=== PATIENT | male | born 1960 | race Caucasian/White ===

== ENCOUNTER 2016-08-26 05:51 | Day surgery (SDC) | payer MEDICARE, MEDICAID ==
[~2016-08-26] VITALS: Ht 170.2 cm; Wt 103.8 kg
[2016-08-26] VITALS (9 sets, daily range): BP systolic 118–146; BP diastolic 67–101; PULSE 58–70; RESP 11–17; TEMP 97.8–98.2; O2SAT 89–100; Ht 170.2 cm; Wt 103.8 kg
--- OUTSIDE RECORDS SUMMARY | 2016-08-26 05:57 | XMS REPORT ---
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 Problem Chronic pain syndrome G89.4 Active Problem Diabetes type 2, controlled E11.9 Active Problem Secondary hypothyroidism E03.8 Active Problem Secondary adrenal insufficiency E27.49 Active Problem Testicular hypofunction E29.1 Active Problem Essential (primary) hypertension I10 Active Problem Diabetes type 2, uncontrolled E11.65 Active Problem Dorsalgia, unspecified M54.9 Active Problem Gastro-esophageal reflux disease without esophagitis K21.9 Active Problem 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 Active Problem Fibromyalgia 729.1 Active Assessment Testicular hypofunction E29.1 Active Problem halfway (current) use of opiate analgesic V58.69 Inactive Problem Restless legs syndrome [RLS] 333.94 Active Problem Sleep apnea 780.57 Active Problem Hypercalcemia 275.42 Active Problem Hypertension 401.9 Active Problem 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 Medications Medication Code System Code Instructions Start Date End Date Status Dosage Pantoprazole Sodium [facility] [address]-44 40 MG Oral 1 (one) every morning December 23, 2013 1 tablet Amitriptyline HCl [facility] [address]-71 25 MG Orally at bedtime October 22, 2013 1-2 tablets Tramadol HCl [facility] [address]-66 50 MG Oral every six hours, as needed 1 Levothyroxine Sodium [facility] 22522555498 100 Orally 1 (one) daily 1 tablet Oxycodone HCl [facility] [address]-24 5 MG Oral 1 tab up to 5x a day pain mgt. OneTouch Ultra Blue NDC 0 1 In Vitro 4 times daily Jul 15, 2013 as directed OneTouch Delica Lancets NDC 0 1 Misc four times daily Jun 04, 2012 not defined Lantus [facility] 68968480152 100 UNIT/ML Subcutaneous daily at bedtime 70 units Cabergoline [facility] 25179608869 0.5 MG Orally once a week 1 tablet BD Insulin Syringe [facility] 42200612968 30G X 1/2 intramuscular 1 (one) four times daily as directed Metoprolol Succinate ER [facility] [address]-53 100 MG Oral 1 tab daily May 28, 2013 1 tablet Testosterone Cypionate [facility] [address]-98 200 MG/ML Intramuscular every 2 weeks 200 mg Amlodipine Besylate [facility] [address]-57 10 MG Orally Once a day May 27, 2013 1 tablet NovoLog [facility] [address]-51 100 UNIT/ML Subcutaneous TID with meals December 23, 2013 20 units Irbesartan [facility] 81231442951 300 MG Orally Once a day 1 tablet Procedures Procedure Coding System Code Date THER/PROPH/DIAG INJ, SC/IM CPT-4 33400 Apr 19, 2016 Testosterone Cypionate (Depo-Testosterone) CPT-4 J1071 Apr 19, 2016 Results No Known Results Summary Purpose eClinicalWorks Submission
--- OUTSIDE RECORDS SUMMARY | 2016-08-26 05:57 | XMS REPORT ---
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 Problem Secondary adrenal insufficiency E27.49 Active Problem Dorsalgia, unspecified M54.9 Active Problem Secondary hypothyroidism E03.8 Active Problem Diabetes type 2, uncontrolled E11.65 Active Problem Chronic pain syndrome G89.4 Active Problem Gastro-esophageal reflux disease without esophagitis K21.9 Active Problem Essential (primary) hypertension I10 Active Assessment 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 Problem 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 Active Problem Hypertension 401.9 Active Problem can doffer (current) use of opiate analgesic V58.69 Inactive Problem Fibromyalgia 729.1 Active Problem Restless legs syndrome [RLS] 333.94 Active Problem Sleep apnea 780.57 Active Problem Hypercalcemia 275.42 Active Medications Medication Code System Code Instructions Start Date End Date Status Dosage Tramadol HCl [facility] [address]-34 50 MG Oral every six hours, as needed 1 Metoprolol Succinate ER [facility] [address]-76 100 MG Oral 1 tab daily May 28, 2013 1 tablet Lantus [facility] 06577691932 100 UNIT/ML Subcutaneous daily at bedtime 70 units OneTouch Ultra Blue NDC 0 1 In Vitro 4 times daily Jul 15, 2013 as directed Levothyroxine Sodium ND 01107084686 100 Orally 1 (one) daily 1 tablet BD Insulin Syringe [facility] 79317338646 30G X 1/2 intramuscular 1 (one) four times daily as directed Irbesartan [facility] 50877480139 300 MG Orally Once a day 1 tablet Pantoprazole Sodium [facility] [address]-23 40 MG Oral 1 (one) every morning December 23, 2013 1 tablet Cabergoline [facility] 80563310629 0.5 MG Orally once a week 1 tablet Oxycodone HCl [facility] [address]-90 5 MG Oral 1 tab up to 5x a day pain mgt. OneTouch Delica Lancets [facility] 0 1 Misc four times daily Jun 04, 2012 not defined Amitriptyline HCl [facility] [address]-18 25 MG Orally at bedtime October 22, 2013 1-2 tablets Testosterone Cypionate [facility] [address]-56 200 MG/ML Intramuscular every 2 weeks 200 mg Amlodipine Besylate [facility] [address]-23 10 MG Orally Once a day May 27, 2013 1 tablet NovoLog [facility] [address]-85 100 UNIT/ML Subcutaneous TID with meals December 23, 2013 20 units Procedures Procedure Coding System Code Date THER/PROPH/DIAG INJ, SC/IM CPT-4 22191 Mar 24, 2016 Testosterone Cypionate (Depo-Testosterone) CPT-4 J1071 Mar 24, 2016 Results No Known Results Summary Purpose eClinicalWorks Submission
--- OUTSIDE RECORDS SUMMARY | 2016-08-26 05:57 | XMS REPORT ---
Author Author Pineda Kevin Organization eClinicalWorks Address Unknown Phone Unavailable Care Team Providers Care Paving Foreman Name Role Phone Pineda Kevin CP Unavailable Allergies, Adverse Reactions, Alerts Substance Reaction Event Type Hydrocortisone *anorectal Agents* ; mood swings in large amts Non Drug Allergy Lyrica *anticonvulsants* ; increased anxiety and mood swings Non Drug Allergy Gabapentin *anticonvulsants* Info Not Available Non Drug Allergy Cymbalta *antidepressants* ; mood swings Non Drug Allergy Ropinirole Hcl *antiparkinson Agents* ; made his jerking worse! Non Drug Allergy Problems Problem Type Condition ICD-9 Code Onset Dates Condition Status Assessment Hypogonadism, male 257.2 Active Assessment Panhypopituitarism 253.2 Active Problem correction (current) use of opiate analgesic V58.69 Inactive Assessment Diabetes type 2, controlled 250.00 Active Problem Restless legs syndrome [RLS] 333.94 Active Problem Back pain, chronic 724.5 Active Problem Gastroparesis 536.3 Inactive Problem Other chronic pain 338.29 Inactive Problem Nonspecific elevation of levels of transaminase or lactic acid dehydrogenase (LDH) 790.4 Inactive Problem Hypercalcemia 275.42 Active 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 Problem Sleep apnea 780.57 Active Problem Fibromyalgia 729.1 Active Problem Diabetes type 2, controlled 250.00 Active Problem 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 Active Problem Nausea alone 787.02 Inactive Problem Chronic pain syndrome 338.4 Active Problem 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 Problem Unspecified local infection of skin and subcutaneous tissue 686.9 Inactive Problem Early satiety 780.94 Inactive Problem Abdominal pain, unspecified site 789.00 Inactive Problem Hypogonadism, male 257.2 Active Problem Hypertension 401.9 Active Problem Unspecified hearing loss 389.9 Inactive Problem Ingrowing nail 703.0 Inactive Problem Dysphagia, unspecified 787.20 Inactive Problem Esophageal reflux 530.81 Inactive Medications Medication Code System Code Instructions Start Date End Date Status Dosage Diazepam [facility] [address]-30 2 MG Oral 1 as needed Active Limit 2 tabs Q24H BD Insulin Syringe NDC 0 30G X 1/2 intramuscular 1 (one) four times daily May 02, 2013 Active as directed Pantoprazole Sodium [facility] [address]-54 40 MG Oral 1 (one) every morning December 23, 2013 Active 1 tablet OneTouch Delica Lancets NDC 0 1 Misc four times daily Jun 04, 2012 Active not defined Amitriptyline HCl [facility] [address]-31 25 MG Orally at bedtime October 22, 2013 Active 1-2 [place] [address]-55 100 MG Oral 1 tab daily May 28, 2013 Active 1 [place] [address]-85 100 MCG Oral 1 (one) daily Jul 01, 2013 Active Per Pineda Kevin PA-C supervised under Bertin [place] [address]-08 10 MG Orally Once a day May 27, 2013 Active 1 tablet OneTouch Ultra Blue NDC 0 In Vitro 2 (two) daily Jul 15, 2013 Active not defined Oxycodone HCl [facility] [address]-97 5 MG Oral 1 tab up to 5x a day Active pain mgt. NovoLog [facility] [address]-94 100 UNIT/ML Subcutaneous 32 with meals December 23, 2013 Active Per Pineda Kevin PA-C supervised under Bertin Crump. Cabergoline [facility] [address]-55 0.5 MG Orally three times a week Mar 28, 2014 Active 1 tablet Cortisone Acetate [facility] [address]-20 25 MG Oral 1 (one) two times daily December 23, 2013 Active not defined Irbesartan [facility] [address]-98 300 MG Oral 1 (one) Tablet daily August 30, 2013 Active to replace Diovan [place] [address]-03 100 UNIT/ML Subcutaneous 70 at bedtime December 23, 2013 Active Per Pineda Kevin PA-C supervised under Bertin Crump Procedures Procedure Coding System Code Date VENIPUNCT, ROUTINE* CPT-4 79765 Jun 09, 2014 Venipuncture CPT-4 68897 Jun 09, 2014 GLYCATED HEMOGLOBIN TEST CPT-4 90016 Jun 09, 2014 Office Visit, Est Pt., Level 4 CPT-4 38723 Jun 09, 2014 GLUCOSE BLOOD TEST CPT-4 42843 Jun 09, 2014 HG A1C LEVEL 7.0-9.0% CPT-4 3045F Jun 09, 2014 Vital Signs Date/Time: Jun 09, 2014 Blood Pressure Systolic 120 mm Hg Weight 236.4 lbs Height 66.74 in BMI 37.31 Index Respiratory Rate 16 /min Cardiac Monitoring Heart Rate 72 /min Blood Pressure Diastolic 80 mm Hg Results No Known Results Summary Purpose eClinicalWorks Submission
--- OUTSIDE RECORDS SUMMARY | 2016-08-26 05:57 | XMS REPORT ---
Author Author Pineda Kevin [facility] Address [address] [id number] Care Team Providers Care Registered Nurse Maternity Name Role Phone Pineda Kevin Unavailable [phone] PROBLEMS Type Condition ICD9-CM Code ZWV25-EK Code Onset Dates Condition Status SNOMED Code Problem Diabetes type 2, uncontrolled E11.65 Active 582087717 Problem Gastro-esophageal reflux disease without esophagitis K21.9 Active 277222064 Problem Essential (primary) hypertension I10 Active 94481047 Problem Hypogonadism in male E29.1 Active 32791752 Problem 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 Active 222387430 Problem Testicular hypofunction E29.1 Active 247792165 Assessment Uncontrolled diabetes mellitus type 2 without complications, unspecified detention insulin use status E11.65 Apr, Active 599552679 Problem Secondary adrenal insufficiency E27.49 Active 53668687 Problem Dorsalgia, unspecified M54.9 Active 352732614 Problem Uncontrolled diabetes mellitus type 2 without complications, unspecified detention insulin use status E11.65 Active 135246370 Problem Secondary hypothyroidism E03.8 Active 10849011 Problem Hypertension 401.9 Active 13388739 Problem [facility] (current) use of opiate analgesic V58.69 Inactive 388241004 Problem Fibromyalgia 729.1 Active 14843019 Problem Sleep apnea 780.57 Active 31237966 Problem 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 86149536 Problem 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 18811594 Problem Restless legs syndrome [RLS] 333.94 Active 62385529 Problem Diabetes type 2, controlled E11.9 Active 99948624 Problem Hypercalcemia 275.42 Active 74028994 Problem Chronic pain syndrome G89.4 Active 127735716 ALLERGIES Substance Reaction Event Type Date Status Iodine Unknown Drug Allergy Apr, Active Cymbalta *antidepressants* ; mood swings Non Drug Allergy Apr, Active Hydrocortisone *anorectal Agents* ; mood swings in large amts Non Drug Allergy Apr, Active Lyrica *anticonvulsants* ; increased anxiety and mood swings Non Drug Allergy Apr, Active Gabapentin *anticonvulsants* Unknown Non Drug Allergy Apr, Active Ropinirole Hcl *antiparkinson Agents* ; made his jerking worse! Non Drug Allergy Apr, Active SOCIAL HISTORY No smoking Hx information available PLAN OF CARE Activity Details Pending Test Hemoglobin A1c (HbA1c) 6 Weeks, prn,Reason: VITAL SIGNS Height 66.74 in 2016-05-24 Weight 226.8 lbs 2016-05-24 Heart Rate 68 /min 2016-05-24 Respiratory Rate 16 /min 2016-05-24 Oximetry 93 % 2016-05-24 BMI 35.80 kg/m2 2016-05-24 Blood pressure systolic 126 mm Hg 2016-05-24 Blood pressure diastolic 70 mm Hg 2016-05-24 MEDICATIONS Medication Instructions Dosage Frequency Start Date End Date Duration Status Testosterone Cypionate 200 MG/ML Intramuscular every 2 weeks 200 mg Active Pantoprazole Sodium 40 MG Oral 1 (one) every morning 1 tablet Nov, 90 days Active BD Insulin Syringe 30G X 1/2 intramuscular 1 (one) four times daily as directed 30 Active OneTouch Ultra Blue 1 In Vitro 4 times daily as directed Jun, 30 days Active Amitriptyline HCl 25 MG Orally at bedtime 1-2 tablets September, 30 days Active Levothyroxine Sodium 100 Orally 1 (one) daily 1 tablet 90 Active Oxycodone HCl 5 MG Oral 1 tab up to 5x a day pain mgt. 0 Active Amlodipine Besylate 10 MG Orally Once a day 1 tablet 24h Apr, 90 days Active NovoLog 100 UNIT/ML Subcutaneous TID with meals 2 units Active Irbesartan 300 MG Orally Once a day 1 tablet 24h 90 Active OneTouch Delica Lancets May, 30 Active Metoprolol Succinate ER 100 MG Oral 1 tab daily 1 tablet Apr, 90 days Active Tramadol HCl 50 MG Oral every six hours, as needed 1 Active Lantus 100 UNIT/ML Subcutaneous daily at bedtime 70 units 30 Active Cabergoline 0.5 MG Orally once a week 1 tablet 30 Active RESULTS No Results PROCEDURES Procedure Date Ordered Related Diagnosis Body Site GLYCATED HEMOGLOBIN TEST IH May 24, 2016 Office Visit, Est Pt., Level 4 May 24, 2016 IMMUNIZATIONS No Known Immunizations
--- OUTSIDE RECORDS SUMMARY | 2016-08-26 05:57 | XMS REPORT ---
Author Author Ilene Nava [facility] eClinicalWorks Address Unknown Phone Unavailable Care Team Providers Care Network Lead Name Role Phone Ilene Nava CP Unavailable Allergies No Known Allergies Problems Problem Type Condition ICD-9 Code Onset Dates Condition Status Problem Allergic rhinitis, cause unspecified 477.9 Active 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 Problem Pain in joint, ankle and foot 719.47 Active Problem Encounter for therapeutic drug monitoring V58.83 Active Problem Special screening for malignant neoplasms, intestine, unspecified V76.50 Active Problem Unspecified hypothyroidism 244.9 Active Problem Allergic purpura 287.0 Active Problem Nonspecific elevation of levels of transaminase or lactic acid dehydrogenase (LDH) 790.4 Active Problem Edema 782.3 Active Problem Cellulitis and abscess of leg, except foot 682.6 Active Problem DM 2, controlled 250.00 Active Problem Gastroparesis 536.3 Active Problem Diabetes mellitus without mention of complication, type II or unspecified type, uncontrolled 250.02 Active Problem Essential hypertension, benign 401.1 Active Problem Lumbago 724.2 Active Problem Chronic pain syndrome 338.4 Active Problem Unspecified myalgia and myositis 729.1 Active Problem Dysphagia, unspecified 787.20 Active Medications Medication Code System Code Instructions Start Date End Date Status Dosage OxyContin [facility] [address]-01 10 MG Orally every 12 hrs Active 1 tablet Vital Signs Date/Time: December 11, 2012 Weight 228.8 lbs Height 66 inches Blood Pressure Diastolic 82 mm Hg Blood Pressure Systolic 128 mm Hg Temperature 98.2 F Results No Known Results Summary Purpose eClinicalWorks Submission
--- OUTSIDE RECORDS SUMMARY | 2016-08-26 05:58 | XMS REPORT ---
Author Author Ilene Nava [facility] eClinicalWorks Address Unknown Phone Unavailable Care Team Providers Care Endbander Name Role Phone Ilene Nava CP Unavailable Allergies No Known Allergies Problems Problem Type Condition ICD-9 Code Onset Dates Condition Status 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 Problem Allergic purpura 287.0 Active Problem Nonspecific elevation of levels of transaminase or lactic acid dehydrogenase (LDH) 790.4 Active Problem Restless legs syndrome [RLS] 333.94 Active Problem Unspecified hypothyroidism 244.9 Active Problem Acute sinusitis, unspecified 461.9 Active Problem Edema 782.3 Active Problem Cellulitis and abscess of leg, except foot 682.6 Active Problem Encounter for therapeutic drug monitoring V58.83 Active Problem Special screening for malignant neoplasms, intestine, unspecified V76.50 Active Problem Lumbago 724.2 Active Problem Unspecified myalgia and myositis 729.1 Active Problem DM 2, controlled 250.00 Active Problem Gastroparesis 536.3 Active Problem Chronic pain syndrome 338.4 Active Problem Dysphagia, unspecified 787.20 Active Problem Diabetes mellitus without mention of complication, type II or unspecified type, uncontrolled 250.02 Active Problem Allergic rhinitis, cause unspecified 477.9 Active Problem Essential hypertension, benign 401.1 Active Problem Pain in joint, ankle and foot 719.47 Active Medications No Known Medications Vital Signs Date/Time: Mar 07, 2013 Weight 230.0 lbs Height 66 inches Blood Pressure Diastolic 84 mm Hg Blood Pressure Systolic 129 mm Hg Temperature 98.5 F Results No Known Results Summary Purpose eClinicalWorks Submission
--- OUTSIDE RECORDS SUMMARY | 2016-08-26 05:58 | XMS REPORT ---
Author Ilene Farah [facility] eClinicalWorks Address Unknown Phone Unavailable Care Team Providers Care Hardwood Floor Installer Name Role Phone Ilene Nava CP Unavailable Allergies, Adverse Reactions, Alerts Substance Reaction Event Type Gabapentin headaches Drug Allergy Problems Problem Type Condition ICD-9 [...] controlled 250.00 Active Problem Gastroparesis 536.3 Active Assessment Unspecified myalgia and myositis 729.1 Active Assessment Chronic pain syndrome 338.4 Active Problem Diabetes mellitus without mention of complication, type II or unspecified type, uncontrolled 250.02 Active Problem Essential hypertension, benign 401.1 Active Problem Lumbago 724.2 Active Problem Chronic pain syndrome 338.4 Active Problem Unspecified myalgia and myositis 729.1 Active Problem Dysphagia, unspecified 787.20 Active Medications Medication Code System Code Instructions Start Date End Date Status Dosage Percodan [facility] [address]-39 4.5-0.38-325 MG Orally q6 hours Active 1 tablet as needed for breakthrough pain Oxycodone HCl [facility] [address]-54 5 MG Orally every 8 hours Active 1 tablet as needed Metoclopramide HCl [facility] [address]-65 10 MG Orally three times a day Active 1/2 tab Metoprolol Succinate [facility] [address]-85 100 MG Orally Once a day Active 1 tablet Amitriptyline HCl [facility] [address]-33 25 MG Orally Once a day Active 1 tablet at bedtime Gentamicin Sulfate [facility] [address]-48 0.1 % Externally Three times a day Active 1 application to affected area Levothyroxine Sodium [facility] [address]-46 .100 mcg Orally Once a day Active 1 tablet every morning on an empty stomach OxyContin [facility] [address]-60 10 MG Orally every 12 hrs Active 1 tablet BD Syringe MULTUM 27310 # 8411; 1 ML; 30 g x 1/2 Subcutaneous Four times daily Mar 05, 2012 Active as directed DX CODE: 250.00 OneTouch Ultra Test MULTUM 32647 In Vitro May 09, 2011 Active as directed Ultram [facility] [address]-04 50 MG Orally tid Active 2 tabs Oxycodone-Aspirin [facility] [address]-72 4.8355-325 MG Orally every 6 hrs Active 1 tablet as needed Amlodipine Besy-Benazepril HCl [facility] [address]-71 10-20 MG Orally Once a day Active 1 capsule Clobetasol Propionate [facility] [address]-29 0.05 % Externally prn Active 1 application to affected area Calcipotriene [facility] [address]-20 0.005 % Externally prn Active 1 application to affected area Amlodipine Besylate [facility] [address]-38 10/20 Orally Once a day Active 1 tablet Lantus [facility] [address]-36 100 UNIT/ML subcutaneously every day (qd) Active 70 units Mupirocin [facility] [address]-52 2 % Externally prn Active as directed Tramadol HCl [facility] [address]-51 50 MG Orally tid Active 2 tabs Diovan [facility] [address]-22 320 MG Orally Once a day Mar 29, 2010 Active 1 tablet Pantoprazole Sodium [facility] [address]-01 40 MG Orally Once a day Apr 04, 2012 Active 1 tablet NovoLog [facility] [address]-61 100 ml SQ TID Active 32 units Cabergoline [facility] [address]-80 0.5 MG Orally 3 times weekly Active 1 tab Procedures Procedure Coding System Code Date Office Visit, Est Pt., Level 3 CPT-4 90069 December 11, 2012 Vital Signs Date/Time: December 11, 2012 Weight 228.8 lbs Height 66 inches Blood Pressure Diastolic 82 mm Hg Blood Pressure Systolic 128 mm Hg Temperature 98.2 F Results No Known Results Summary Purpose eClinicalWorks Submission
--- OUTSIDE RECORDS SUMMARY | 2016-08-26 05:58 | XMS REPORT ---
Author Author Ilene Nava [facility] eClinicalWorks Address Unknown Phone Unavailable Care Team Providers Care Industry Operations Investigator Name Role Phone Ilene Nava CP Unavailable [...] Medications No Known Medications Vital Signs Date/Time: Feb 05, 2013 Weight 229.8 lbs Height 66 inches Blood Pressure Diastolic 88 mm Hg Blood Pressure Systolic 138 mm Hg Results No Known Results Summary Purpose eClinicalWorks Submission
--- OUTSIDE RECORDS SUMMARY | 2016-08-26 05:58 | XMS REPORT ---
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 Problem Gastro-esophageal reflux disease without esophagitis K21.9 Active Problem Essential (primary) hypertension I10 Active Problem Dorsalgia, unspecified M54.9 Active Problem Hypogonadism male E29.1 Active Problem Diabetes type 2, controlled E11.9 Active Problem Diabetes type 2, uncontrolled E11.65 Active Problem Chronic pain syndrome G89.4 Active Assessment Hypercalcemia E83.52 Active Assessment Vitamin D deficiency E55.9 Active Problem Sleep apnea 780.57 Active Problem Hypertension 401.9 Active Problem 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 Active Problem USP (current) use of opiate analgesic V58.69 Inactive Problem Fibromyalgia 729.1 Active Problem Restless legs syndrome [RLS] 333.94 Active Medications Medication Code System Code Instructions Start Date End Date Status Dosage Metoprolol Succinate ER [facility] [address]-90 100 MG Oral 1 tab daily May 28, 2013 1 tablet Tramadol HCl [facility] [address]-93 50 MG Oral every six hours, as needed 1 Lantus [facility] [address]-00 100 UNIT/ML Subcutaneous daily at bedtime 2am 70 units Cabergoline [facility] 60519086838 0.5 MG Orally once a week 1 tablet Testosterone Cypionate [facility] [address]-73 200 MG/ML Intramuscular every 2 weeks 200 mg Irbesartan [facility] 27220036260 300 MG Orally Once a day 1 tablet Levothyroxine Sodium [facility] 49155361494 100 Orally 1 (one) daily 1 tablet NovoLog [facility] [address]-93 100 UNIT/ML Subcutaneous TID with meals December 23, 2013 24 units Amitriptyline HCl [facility] [address]-25 25 MG Orally at bedtime October 22, 2013 1-2 tablets Oxycodone HCl [facility] [address]-17 5 MG Oral 1 tab up to 5x a day pain mgt. OneTouch Delica Lancets NDC 0 1 Misc four times daily Jun 04, 2012 not defined Amlodipine Besylate [facility] [address]-82 10 MG Orally Once a day May 27, 2013 1 tablet Pantoprazole Sodium [facility] [address]-27 40 MG Oral 1 (one) every morning December 23, 2013 1 tablet BD Insulin Syringe [facility] 19703059864 30G X 1/2 intramuscular 1 (one) four times daily as directed OneTouch Ultra Blue NDC 0 1 In Vitro 4 times daily Jul 15, 2013 as directed Procedures Procedure Coding System Code Date Billed by outside source CPT-4 NOBLL December 24, 2015 Results No Known Results Summary Purpose eClinicalWorks Submission
--- OUTSIDE RECORDS SUMMARY | 2016-08-26 05:58 | XMS REPORT ---
Author Author Ilene Nava [facility] eClinicalWorks Address Unknown Phone Unavailable Care Team Providers Care Manager Part Name Role Phone Ilene Nava CP Unavailable [...] Active Problem Dysphagia, unspecified 787.20 Active Medications No Known Medications Vital Signs Date/Time: December 11, 2012 Weight 228.8 lbs Height 66 inches Blood Pressure Diastolic 82 mm Hg Blood Pressure Systolic 128 mm Hg Temperature 98.2 F Results No Known Results Summary Purpose eClinicalWorks Submission
--- OUTSIDE RECORDS SUMMARY | 2016-08-26 05:58 | XMS REPORT ---
Author Author Pineda Kevin [facility] Address [address] [id number] Care Team Providers Care Shirt Ironer Name Role Phone Pineda Kevin Unavailable [phone] PROBLEMS Type Condition ICD9-CM Code CFN28-LQ Code Onset Dates Condition Status SNOMED Code Problem Chronic pain syndrome G89.4 Active 861421482 Problem Essential (primary) hypertension I10 Active 48885517 Problem Diabetes type 2, uncontrolled E11.65 Active 693487851 Problem Hypogonadism in male E29.1 Active 59424020 Assessment Hypogonadism in male E29.1 16 Apr, 2016 Active 47884223 Problem Testicular hypofunction E29.1 Active 024569683 Problem Dorsalgia, unspecified M54.9 Active 942545960 Problem Gastro-esophageal reflux disease without esophagitis K21.9 Active 987451443 Problem Secondary hypothyroidism E03.8 Active 25901761 Problem Secondary adrenal insufficiency E27.49 Active 29323941 Problem Sleep apnea 780.57 Active 40410555 Problem Hypertension 401.9 Active 90024149 Problem 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 Active 453525463 Problem Fibromyalgia 729.1 Active 93327994 Problem Hypercalcemia 275.42 Active 28291266 Problem 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 0 Active OneTouch Ultra Blue 1 In Vitro 4 times daily as directed Jun, 30 days Active Tramadol HCl 50 MG Oral every six hours, as needed 1 Active Amlodipine Besylate 10 MG Orally Once a day 1 tablet 24h Apr, 90 days Active BD Insulin Syringe 30G X 1/2 intramuscular 1 (one) four times daily as directed 30 Active Cabergoline 0.5 MG Orally once a week 1 tablet 30 Active NovoLog 100 UNIT/ML Subcutaneous TID with meals 32 units 30 Active Metoprolol Succinate ER 100 MG Oral 1 tab daily 1 tablet Apr, 90 days Active Pantoprazole Sodium 40 MG Oral 1 (one) every morning 1 tablet Nov, 90 days Active Amitriptyline HCl 25 MG Orally at bedtime 1-2 tablets September, 30 days Active Levothyroxine Sodium 100 Orally 1 (one) daily 1 tablet 90 Active Testosterone Cypionate 200 MG/ML Intramuscular every 2 weeks 200 mg Active OneTouch [facility] May, 30 Active Irbesartan 300 MG Orally Once a day 1 tablet 24h 90 Active Lantus 100 UNIT/ML Subcutaneous daily at bedtime 70 units 30 Active RESULTS No Results PROCEDURES Procedure Date Ordered Related Diagnosis Body Site Testosterone Cypionate (Depo-Testosterone) May 13, 2016 THER/PROPH/DIAG INJ, SC/IM May 13, 2016 IMMUNIZATIONS Vaccine Route Administration Date Status Testosterone Cypionate (Depo-Testosterone) IM Intramuscular May 13, 2016 Administered
--- OUTSIDE RECORDS SUMMARY | 2016-08-26 05:58 | XMS REPORT ---
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 Inactive [...] Instructions Start Date End Date Status Dosage OneTouch Delica Lancets [facility] 0 1 Misc four times daily Jun 04, 2012 Active not defined Cortisone Acetate [facility] [address]-73 25 MG Oral 1 (one) two times daily December 23, 2013 Active not defined Irbesartan [facility] [address]-37 300 MG Oral 1 (one) Tablet daily August 30, 2013 Active to replace Diovan due to non insurance payment Amitriptyline HCl [facility] [address]-78 25 MG Orally at bedtime October 22, 2013 Active 1-2 tablets Diazepam [facility] [address]-36 2 MG Oral 1 as needed Active Limit 2 tabs Q24H NovoLog [facility] [address]-23 100 UNIT/ML Subcutaneous 32 with meals December 23, 2013 Active Per Pineda Kevin PA-C supervised under Bertin [place] [address]-66 100 MG Oral 1 tab daily May 28, 2013 Active 1 tablet Amlodipine Besylate [facility] [address]-56 10 MG Orally Once a day May 27, 2013 Active 1 tablet Cabergoline [facility] [address]-02 0.5 MG Orally three times a week Mar 28, 2014 Active 1 tablet Levothyroxine Sodium [facility] [address]-53 100 MCG Oral 1 (one) daily Jul 01, 2013 Active Per Pineda Kevin PA-C supervised under Bertin Crump Pantoprazole Sodium [facility] [address]-80 40 MG Oral 1 (one) every morning December 23, 2013 Active 1 tablet BD Insulin Syringe NDC 0 30G X 1/2 intramuscular 1 (one) four times daily May 02, 2013 Active as directed Oxycodone HCl [facility] [address]-93 5 MG Oral 1 tab up to 5x a day Active pain mgt. OneTouch Ultra Blue NDC 0 In Vitro 2 (two) daily Jul 15, 2013 Active not defined Lantus [facility] [address]-18 100 UNIT/ML Subcutaneous 70 at bedtime December 23, 2013 Active Per Pineda Kevin PA-C supervised under Bertin Crump Procedures Procedure Coding System Code Date LAB BILLED BY [facility] CPT-4 NOBLL Jun 17, 2014 Venipuncture CPT-4 14541 Jun 17, 2014 Results Name Result Date Reference Range Unit TSH 06560 Summary Purpose eClinicalWorks Submission
--- OUTSIDE RECORDS SUMMARY | 2016-08-26 05:58 | XMS REPORT ---
Author Author Ilene Nava [facility] eClinicalWorks Address Unknown Phone Unavailable Care Team Providers Care Tar Kettle Runner Name Role Phone Ilene Nava CP Unavailable [...] foot 719.47 Active Medications No Known Medications Results No Known Results Summary Purpose eClinicalWorks Submission
--- OUTSIDE RECORDS SUMMARY | 2016-08-26 05:58 | XMS REPORT ---
Author Author Pineda Kevin Organization eClinicalWorks Address Unknown Phone Unavailable Care Team Providers Care Record Tester Name Role Phone Pineda Kevin CP Unavailable Allergies No Known Allergies Problems Problem Type Condition Code Onset Dates Condition Status Problem Back pain, chronic 724.5 Active Problem Fibromyalgia 729.1 Active Problem 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 Active Assessment Hypogonadism, male 257.2 Active Problem Chronic pain syndrome 338.4 Active Problem Other chronic pain 338.29 Inactive Problem Hypercalcemia 275.42 Active Problem Hypertension 401.9 Active Problem Sleep apnea 780.57 Active Problem Restless legs syndrome [RLS] 333.94 Active Problem [facility] (current) use of opiate analgesic V58.69 Inactive Medications Medication Code System Code Instructions Start Date End Date Status Dosage Cabergoline [facility] [address]-13 0.5 MG Orally three times a week Mar 28, 2014 1 [place] [address]-61 40 MG Oral 1 (one) every morning December 23, 2013 1 tablet OneTouch Delica Lancets NDC 0 1 Misc four times daily Jun 04, [address] [facility] [address]-49 5 MG Oral 1 tab up to 5x a day pain mgt. Lantus [facility] [address]-17 100 UNIT/ML Subcutaneous 70 at bedtime December 23, 2013 Per Pineda Kevin PA-C supervised under Bertin [place] [address]-78 10 MG Orally Once a day May 27, 2013 1 tablet OneTouch Ultra Blue NDC 0 In Vitro 2 (two) daily Jul 15, [address] [facility] [address]-90 100 UNIT/ML Subcutaneous 32 with meals December 23, 2013 Per Pineda Kevin PA-C supervised under Bertin [place] [address]-22 25 MG Oral 1 (one) two times daily December 23, 2013 [place] [address]-58 300 MG Oral 1 (one) Tablet daily August 30, 2013 to replace Diovan due to non insurance payment Diazepam [facility] [address]-36 2 MG Oral 1 as needed Limit 2 tabs Q24H Metoprolol Succinate ER [facility] [address]-93 100 MG Oral 1 tab daily May 28, 2013 not defined Lev[address]ine Sodium [facility] [address]-84 100 MCG Oral 1 (one) daily Jul 01, 2013 Per Pineda Kevin PA-C supervised under Bertin Crump Amitriptyline HCl [facility] [address]-33 25 MG Orally at bedtime October 22, 2013 1-2 tablets BD Insulin Syringe NDC 0 30G X 1/2" 05 ML intramuscular 1 (one) four times daily May 02, 2013 as directed Procedures Procedure Coding System Code Date INJ TESTOSTERONE CYPIONATE 1 MG CPT-4 J1071 Jun 04, 2014 THER/PROPH/DIAG INJ, SC/IM CPT-4 40130 Jun 04, 2014 Results No Known Results Summary Purpose eClinicalWorks Submission
--- OUTSIDE RECORDS SUMMARY | 2016-08-26 05:58 | XMS REPORT ---
Author Author Pineda Kevin Organization eClinicalWorks Address Unknown Phone Unavailable Care Team Providers Care Peanut Butter Maker Name Role Phone Pineda Kevin CP Unavailable Allergies No Known Allergies Problems Problem Type Condition ICD-9 Code Onset Dates Condition Status Problem Gastroparesis 536.3 Inactive Problem Other chronic pain 338.29 Inactive Problem Nonspecific elevation of levels of transaminase or lactic acid dehydrogenase (LDH) 790.4 Inactive Problem Hypercalcemia 275.42 Active Problem Sleep apnea 780.57 Active 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 Problem Fibromyalgia 729.1 Active Problem 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 Active Problem Diabetes type 2, controlled 250.00 Active Problem Nausea alone 787.02 Inactive Problem [...] Inactive Problem Dysphagia, unspecified 787.20 Inactive Problem prison (current) use of opiate analgesic V58.69 Inactive Problem Back pain, chronic 724.5 Active Problem Esophageal reflux 530.81 Inactive Problem Restless legs syndrome [RLS] 333.94 Active Medications No Known Medications Results No Known Results Summary Purpose eClinicalWorks Submission
--- OUTSIDE RECORDS SUMMARY | 2016-08-26 05:58 | XMS REPORT ---
Author Author Ilene Nava [facility] eClinicalWorks Address Unknown Phone Unavailable Care Team Providers Care Field Artillery Basic Name Role Phone Ilene Nava CP Unavailable [...]
--- OUTSIDE RECORDS SUMMARY | 2016-08-26 05:58 | XMS REPORT ---
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
--- OUTSIDE RECORDS SUMMARY | 2016-08-26 05:58 | XMS REPORT ---
Author Author Pineda Kevin Organization eClinicalWorks Address Unknown Phone Unavailable Care Team Providers Care Stockroom Worker Name Role Phone Pineda Kevin CP Unavailable [...] Inactive Problem Dysphagia, unspecified 787.20 Inactive Problem USP (current) use of opiate analgesic V58.69 Inactive Problem Back pain, chronic 724.5 Active Problem Esophageal reflux 530.81 Inactive Problem Restless legs syndrome [RLS] 333.94 Active Medications Medication Code System Code Instructions Start Date End Date Status Dosage Lantus [facility][NOTE 3] [address]-80 100 UNIT/ML Subcutaneous daily at bedtime November 70 units Results No Known Results Summary Purpose eClinicalWorks Submission
--- OUTSIDE RECORDS SUMMARY | 2016-08-26 05:58 | XMS REPORT ---
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 Problem Back pain, chronic 724.5 Active Problem intermediate (current) use of opiate analgesic V58.69 Inactive Problem Restless legs syndrome [RLS] 333.94 Active Problem Sleep apnea 780.57 Active Problem Other chronic pain 338.29 Inactive Problem Hypertension 401.9 Active Problem Chronic pain syndrome 338.4 Active Medications Medication Code System Code Instructions Start Date End Date Status Dosage BD Insulin Syringe [facility] 71533410108 30G X 1/2" 05 ML intramuscular 1 (one) four times daily as directed OneTouch Ultra Blue [place] 0 1 In Vitro 4 times daily Jul 15, 2013 as directed Lantus [facility] 24546537154 100 UNIT/ML Subcutaneous daily at bedtime 70 units Oxycodone HCl [facility] [address]-35 5 MG Oral 1 tab up to 5x a day pain mgt. Tramadol HCl [facility] [address]-49 50 MG Oral every six hours, as needed 1 Levothyroxine Sodium [facility] 09061610567 100 Orally 1 (one) daily 1 tablet Cabergoline [facility] [address]-43 0.5 MG Orally once a week Mar 28, 2014 1 tablet Pantoprazole Sodium [facility] [address]-10 40 MG Oral 1 (one) every morning December 23, 2013 1 tablet Amitriptyline HCl [facility] [address]-40 25 MG Orally at bedtime October 22, 2013 1-2 tablets OneTouch Delica Lancets [facility] 0 1 Misc four times daily Jun 04, 2012 not defined Testosterone Cypionate [facility] [address]-07 200 MG/ML Intramuscular every 2 weeks 200 mg Amlodipine Besylate [facility] [address]-56 10 MG Orally Once a day May 27, 2013 1 tablet Irbesartan [facility] 87192404951 300 MG Orally Once a day 1 tablet Metoprolol Succinate ER [facility] [address]-77 100 MG Oral 1 tab daily May 28, 2013 1 tablet Diazepam [facility] [address]-56 2 MG Oral 1 as needed Limit 2 tabs Q24H NovoLog [facility] [address]-57 100 UNIT/ML Subcutaneous TID with meals December 23, 2013 32 units Procedures Procedure Coding System Code Date THER/PROPH/DIAG INJ, SC/IM CPT-4 81300 September 22, 2015 Testosterone Cypionate (Depo-Testosterone) CPT-4 J1071 September 22, 2015 Results No Known Results Summary Purpose eClinicalWorks Submission
--- OUTSIDE RECORDS SUMMARY | 2016-08-26 05:58 | XMS REPORT ---
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 Problem 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 Problem Hypogonadism male E29.1 Active Problem Diabetes type 2, controlled E11.9 Active Assessment 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 Problem Back pain, chronic 724.5 Active Problem Sleep apnea 780.57 Active Problem Hypertension 401.9 Active Problem 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 Active Problem penitentiary (current) use of opiate analgesic V58.69 Inactive Problem Fibromyalgia 729.1 Active Problem Restless legs syndrome [RLS] 333.94 Active Medications Medication Code System Code Instructions Start Date End Date Status Dosage Amlodipine Besylate [facility] [address]-97 10 MG Orally Once a day May 27, 2013 1 tablet BD Insulin Syringe [facility] 65147704744 30G X 1/2" 05 ML intramuscular 1 (one) four times daily as directed Amitriptyline HCl [facility] [address]-30 25 MG Orally at bedtime October 22, 2013 1-2 tablets OneTouch Delica Lancets [facility] 0 1 Misc four times daily Jun 04, 2012 not defined Testosterone Cypionate [facility] [address]-82 200 MG/ML Intramuscular every 2 weeks 200 mg Metoprolol Succinate ER [facility] [address]-26 100 MG Oral 1 tab daily May 28, 2013 1 tablet Tramadol HCl [facility] [address]-54 50 MG Oral every six hours, as needed 1 Cabergoline [facility] [address]-33 0.5 MG Orally once every other week Mar 28, 2014 1 tablet Lantus [facility] [address]-51 100 UNIT/ML Subcutaneous daily at bedtime November 70 units OneTouch Ultra Blue [facility] 0 1 In Vitro 4 times daily Jul 15, 2013 as directed Levothyroxine Sodium [facility] 85764402647 100 Orally 1 (one) daily 1 tablet Pantoprazole Sodium [facility] [address]-67 40 MG Oral 1 (one) every morning December 23, 2013 1 tablet Diazepam [facility] [address]-05 2 MG Oral 1 as needed Limit 2 tabs Q24H Irbesartan [facility] 08557255148 300 MG Orally Once a day 1 tablet NovoLog [facility] [address]-63 100 UNIT/ML Subcutaneous TID with meals December 23, 2013 32 units Oxycodone HCl [facility] [address]-32 5 MG Oral 1 tab up to 5x a day pain mgt. Procedures Procedure Coding System Code Date THER/PROPH/DIAG INJ, SC/IM CPT-4 68421 Jun 19, 2015 Testosterone Cypionate (Depo-Testosterone) CPT-4 J1071 Jun 19, 2015 Results No Known Results Summary Purpose eClinicalWorks Submission
--- OUTSIDE RECORDS SUMMARY | 2016-08-26 05:58 | XMS REPORT ---
Author Author Ilene Nava [facility] eClinicalWorks Address Unknown Phone Unavailable Care Team Providers Care Gas Line Installer Name Role Phone Ilene Nava CP [...] joint, ankle and foot 719.47 Active Medications Medication Code System Code Instructions Start Date End Date Status Dosage NovoLog [facility] [address]-84 100 ml SQ TID Active 32 units Vital Signs Date/Time: Feb 05, 2013 Weight 229.8 lbs Height 66 inches Blood Pressure Diastolic 88 mm Hg Blood Pressure Systolic 138 mm Hg Results No Known Results Summary Purpose eClinicalWorks Submission
--- OUTSIDE RECORDS SUMMARY | 2016-08-26 05:59 | XMS REPORT ---
Author Author Ilene Nava [facility] eClinicalWorks Address Unknown Phone Unavailable Care Team Providers Care Health Clinician Name Role Phone Ilene Nava CP Unavailable [...] Instructions Start Date End Date Status Dosage Rene [facility] [address]-67 320 MG Orally Once a day Mar 29, 2010 Active 1 tablet Vital Signs Date/Time: Feb 05, 2013 Weight 229.8 lbs Height 66 inches Blood Pressure Diastolic 88 mm Hg Blood Pressure Systolic 138 mm Hg Results No Known Results Summary Purpose eClinicalWorks Submission
--- OUTSIDE RECORDS SUMMARY | 2016-08-26 05:59 | XMS REPORT ---
Author Author Pineda Kevin Organization eClinicalWorks Address Unknown Phone Unavailable Care Team Providers Care Gold Cutter Name Role Phone Pineda Kevin CP Unavailable Allergies No Known Allergies Problems Problem Type Condition Code Onset Dates Condition Status Problem Other chronic pain 338.29 Inactive 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 Problem Chronic pain syndrome 338.4 Active Problem Hypogonadism male E29.1 Active Problem Diabetes type 2, controlled E11.9 Active Problem Chronic pain syndrome G89.4 Active Problem Diabetes type 2, controlled 250.00 Active Problem Hypercalcemia 275.42 Active Problem 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 Problem 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 Problem Back pain, chronic 724.5 Active Problem 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 Active Problem Hypogonadism, male 257.2 Active Problem Hypertension 401.9 Active Problem Fibromyalgia 729.1 Active 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
--- OUTSIDE RECORDS SUMMARY | 2016-08-26 05:59 | XMS REPORT ---
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 Problem Hypercalcemia 275.42 Active Problem Diabetes type 2, controlled E11.9 Active Problem 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 Assessment Hypogonadism male E29.1 Active Problem Fibromyalgia 729.1 Active Problem Sleep apnea 780.57 Active Problem Back pain, chronic 724.5 Active Problem Hypertension 401.9 Active Problem 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 Active 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.69 Inactive Medications Medication Code System Code Instructions Start Date End Date Status Dosage Amitriptyline HCl [facility] [address]-16 25 MG Orally at bedtime October 22, 2013 1-2 tablets Cortisone Acetate [facility] [address]-61 25 MG Oral 1 (one) two times daily December 23, 2013 not defined Levothyroxine Sodium [facility] 08639939710 100 Orally 1 (one) daily 1 tablet NovoLog [facility] [address]-68 100 UNIT/ML Subcutaneous TID with meals December 23, 2013 28 units Irbesartan [facility] 03242633112 300 MG Orally Once a day 1 tablet Oxycodone HCl [facility] [address]-15 5 MG Oral 1 tab up to 5x a day pain mgt. Lantus [facility] [address]-88 100 UNIT/ML Subcutaneous daily at bedtime November 75 units Cabergoline [facility] [address]-94 0.5 MG Orally twice a week Mar 28, 2014 1 tablet Metoprolol Succinate ER [facility] [address]-22 100 MG Oral 1 tab daily May 28, 2013 1 tablet BD Insulin Syringe NDC 0 30G X 1/2 intramuscular 1 (one) four times daily May 02, 2013 as directed Testosterone Cypionate [facility] [address]-34 200 MG/ML Intramuscular every 2 weeks 200 mg Amlodipine Besylate [facility] [address]-75 10 MG Orally Once a day May 27, 2013 1 tablet OneTouch Ultra Blue NDC 0 1 In Vitro 4 times daily Jul 15, 2013 as directed Diazepam [facility] [address]-34 2 MG Oral 1 as needed Limit 2 tabs Q24H OneTouch Delica Lancets NDC 0 1 Misc four times daily Jun 04, 2012 not defined Pantoprazole Sodium [facility] [address]-30 40 MG Oral 1 (one) every morning December 23, 2013 1 tablet Procedures Procedure Coding System Code Date THER/PROPH/DIAG INJ, SC/IM CPT-4 09084 May 07, 2015 Testosterone Cypionate (Depo-Testosterone) CPT-4 J1071 May 07, 2015 Results No Known Results Summary Purpose eClinicalWorks Submission
--- OUTSIDE RECORDS SUMMARY | 2016-08-26 05:59 | XMS REPORT ---
Author Author Pineda Kevin Organization eClinicalWorks Address Unknown Phone Unavailable Care Team Providers Care Biofuels Operations Manager Name Role Phone Pineda Kevin CP Unavailable Allergies, Adverse Reactions, Alerts Substance Reaction Event Type Iodine Info Not Available Drug Allergy Cymbalta *antidepressants* ; mood swings Non Drug Allergy Hydrocortisone *anorectal Agents* ; mood swings in large amts Non Drug Allergy Lyrica *anticonvulsants* ; increased anxiety and mood swings Non Drug Allergy Gabapentin *anticonvulsants* Info Not Available Non Drug Allergy Ropinirole Hcl *antiparkinson Agents* ; made his jerking worse! 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 [...] Instructions Start Date End Date Status Dosage Cortisone Acetate [facility] [address]-25 25 MG Oral 1 (one) two times daily December 23, 2013 not defined OneTouch Delica Lancets NDC 0 1 Misc four times daily Jun 04, 2012 not defined Amitriptyline HCl [facility] [address]-66 25 MG Orally at bedtime October 22, 2013 1-2 tablets Metoprolol Succinate ER [facility] [address]-59 100 MG Oral 1 tab daily May 28, 2013 1 tablet Irbesartan [facility] [address]-55 300 MG Orally Once a day August 30, 2013 1 tablet NovoLog [facility] [address]-86 100 UNIT/ML Subcutaneous TID with meals December 23, 2013 28 units Levothyroxine Sodium [facility] 76551046079 100 Orally 1 (one) daily 1 tablet Cabergoline [facility] [address]-30 0.5 MG Orally three times a week Mar 28, 2014 1 tablet Pantoprazole Sodium [facility] [address]-98 40 MG Oral 1 (one) every morning December 23, 2013 1 tablet Lantus [facility] [address]-35 100 UNIT/ML Subcutaneous daily at bedtime November 70 units Diazepam [facility] [address]-92 2 MG Oral 1 as needed Limit 2 tabs Q24H Amlodipine Besylate [facility] [address]-68 10 MG Orally Once a day May 27, 2013 1 tablet Oxycodone HCl [facility] [address]-86 5 MG Oral 1 tab up to 5x a day pain mgt. OneTouch Ultra Blue NDC 0 In Vitro 2 (two) daily Jul 15, 2013 not defined BD Insulin Syringe NDC 0 30G X 1/2 intramuscular 1 (one) four times daily May 02, 2013 as directed Procedures Procedure Coding System Code Date Venipuncture CPT-4 26008 November 13, 2014 GLUCOSE BLOOD TEST CPT-4 78958 November 13, 2014 GLYCATED HEMOGLOBIN TEST CPT-4 37361 November 13, 2014 Office Visit, Est Pt., Level 4 CPT-4 77142 November 13, 2014 Billed by outside source CPT-4 NOBLL November 13, 2014 Vital Signs Date/Time: November 13, 2014 Blood Pressure Systolic 120 mm Hg Weight 228.2 lbs Height 66.74 in BMI 36.02 Index Respiratory Rate 16 /min Cardiac Monitoring Heart Rate 60 /min Blood Pressure Diastolic 60 mm Hg Results Name Result Date Reference Range Unit Abnormality Flag Hemoglobin A1c (HbA1c) Microalbumin/Creatinine [place], [place] [address] ----Microalbumin, Urine 3.9 [id number] 0.0-17.0 ug/mL ----Microalb/Creat Ratio 2.3 [id number] 0.0-30.0 mg/g creat ----Creatinine, Urine 173.3 [id number] 22.0-328.0 mg/dL Summary Purpose eClinicalWorks Submission
--- OUTSIDE RECORDS SUMMARY | 2016-08-26 05:59 | XMS REPORT ---
Author Author Pineda Kevin Organization eClinicalWorks Address Unknown Phone Unavailable Care Team Providers Care Loss Prevention Consultant Name Role Phone Pineda Kevin CP Unavailable [...] Restless legs syndrome [RLS] 333.94 Active Problem senior living (current) use of opiate analgesic V58.69 Inactive Medications Medication Code System Code Instructions Start Date End Date Status Dosage Irbesartan [facility] [address]-32 300 MG Oral 1 (one) Tablet daily August 30, 2013 to replace Diovan due to [place] [address]-63 25 MG Orally at bedtime October 22, 2013 1-2 [place] [address]-25 100 UNIT/ML Subcutaneous 70 at bedtime December 23, 2013 Per Pineda Kevin PA-C supervised under [place] [address]-22 25 MG Oral 1 (one) two times daily December 23, 2013 not defined NovoLog [facility] [address]-04 100 UNIT/ML Subcutaneous 32 with meals December 23, 2013 Per Pineda Kevin PA-C supervised under Bertin Crump. Pantoprazole Sodium [facility] [address]-26 40 MG Oral 1 (one) every morning December 23, 2013 1 tablet OneTouch Delica Lancets NDC 0 1 Misc four times daily Jun 04, 2012 [place] [address]-75 100 MCG Oral 1 (one) daily Jul 01, 2013 Per Pineda Kevin PA-C supervised under Bertin Crmup OneTouch Ultra Blue NDC 0 In Vitro 2 (two) daily Jul 15, 2013 not defined Amlodipine Besylate [facility] [address]-18 10 MG Oral 1 (one) Tablet daily May 27, 2013 not defined Oxycodone HCl [facility] [address]-64 5 MG Oral 1 tab up to 5x a day pain mgt. BD Insulin Syringe [facility] 0 30G X 1/2" 05 ML 1 (one) four times daily Apr Per Pineda Kevin PA-C supervised under Bertin Crump Diazepam [facility] [address]-09 2 MG Oral 1 as needed Limit 2 tabs Q24H Cabergoline [facility] [address]-50 0.5 MG Orally three times a week Mar 28, 2014 1 tablet Metoprolol Succinate ER [facility] [address]-26 100 MG Oral 1 tab daily May 28, 2013 not defined Procedures Procedure Coding System Code Date THER/PROPH/DIAG INJ, SC/IM CPT-4 06893 May 08, 2014 INJ TESTO CYPIONATE 1 CC 200 MG CPT-4 J1080 May 08, 2014 Results No Known Results Summary Purpose eClinicalWorks Submission
--- OUTSIDE RECORDS SUMMARY | 2016-08-26 05:59 | XMS REPORT ---
Author Author Pineda Kevin Organization eClinicalWorks Address Unknown Phone Unavailable Care Team Providers Care Clinical Consultant Name Role Phone Pineda Kevin CP [...] Problem Chronic pain syndrome G89.4 Active Assessment Vitamin D deficiency E55.9 Active Problem Sleep apnea 780.57 Active Problem Hypertension 401.9 Active Problem 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 Active Problem retirement (current) use of opiate analgesic V58.69 Inactive Problem Fibromyalgia 729.1 Active Problem Restless legs syndrome [RLS] 333.94 Active Medications No Known Medications Results No Known Results Summary Purpose eClinicalWorks Submission
--- OUTSIDE RECORDS SUMMARY | 2016-08-26 05:59 | XMS REPORT ---
Author Ilene Farah [facility] eClinicalWorks Address Unknown Phone Unavailable Care Team Providers Care Furniture Upholsterer Apprentice Name Role Phone Ilene Nava CP Unavailable [...] End Date Status Dosage Pantoprazole Sodium [facility] [address]-78 40 MG Orally Once a day Apr 04, 2012 Active 1 tablet Percodan [facility] [address]-93 4.5-0.38-325 MG Orally q6 hours Active 1 tablet as needed for pain Oxycodone HCl [facility] [address]-20 5 MG Orally every 8 hours Active 1 tablet as needed Metoclopramide HCl [facility] [address]-84 10 MG Orally three times a day Active 1/2 tab Amitriptyline HCl [facility] [address]-83 25 MG Orally Once a day Active 1 tablet at bedtime OneTouch Ultra Test MULTUM 75916 In Vitro May 09, 2011 Active as directed Clobetasol Propionate [facility] [address]-17 0.05 % Externally prn Active 1 application to affected area BD Syringe MULTUM 48319 # 8411; 1 ML; 30 g x 1/2 Subcutaneous Four times daily Mar 05, 2012 Active as directed DX CODE: 250.00 Calcipotriene [facility] [address]-96 0.005 % Externally prn Active 1 application to affected area Ultram [facility] [address]-09 50 MG Orally tid Active 2 tabs Gentamicin Sulfate [facility] [address]-22 0.1 % Externally Three times a day Active 1 application to affected area Oxycodone HCl [facility] [address]-57 10 MG Orally every 12 hrs November 13, 2012 Active 1 tablet NovoLog [facility] [address]-12 100 ml SQ TID Active 32 units Mupirocin [facility] [address]-67 2 % Externally prn Active as directed Lantus [facility] [address]-65 100 UNIT/ML subcutaneously every day (qd) Active 70 units Amlodipine Besylate [facility] [address]-28 10/20 Orally Once a day Active 1 tablet Levothyroxine Sodium [facility] [address]-57 .100 mcg Orally Once a day Active 1 tablet every morning on an empty stomach Amlodipine Besy-Benazepril HCl [facility] [address]-94 10-20 MG Orally Once a day Active 1 capsule Metoprolol Succinate [facility] [address]-54 100 MG Orally Once a day Active 1 tablet Diovan [facility] [address]-31 320 MG Orally Once a day Mar 29, 2010 Active 1 tablet Cabergoline [facility] [address]-90 0.5 MG Orally 3 times weekly Active 1 tab Procedures Procedure Coding System Code Date Office Visit, Est Pt., Level 3 CPT-4 03869 November 21, 2012 Vital Signs Date/Time: November 21, 2012 Weight 230.4 lbs Height 66 inches Blood Pressure Diastolic 85 mm Hg Blood Pressure Systolic 127 mm Hg Temperature 98.2 F Results No Known Results Summary Purpose eClinicalWorks Submission
--- OUTSIDE RECORDS SUMMARY | 2016-08-26 05:59 | XMS REPORT ---
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 Jun, Active 889943844 Problem Uncontrolled diabetes mellitus type 2 without complications, unspecified care home insulin use status E11.65 Active 125729276 Problem Dorsalgia, unspecified M54.9 Active 817929053 Problem Gastro-esophageal reflux disease without esophagitis K21.9 Active 493321070 Problem Secondary hypothyroidism E03.8 Active 83896566 Problem Secondary adrenal insufficiency E27.49 Active 24048563 Problem Sleep apnea 780.57 Active 68854248 Problem Hypertension 401.9 Active 96721978 Problem 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 Active 451081164 Problem Fibromyalgia 729.1 Active 73288873 Problem Hypercalcemia 275.42 Active 39165910 Problem 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 08115572 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 Inactive 735263070 Problem 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 56265165 Problem Restless legs syndrome [RLS] 333.94 Active 33055719 Problem Diabetes type 2, controlled E11.9 Active 35343547 ALLERGIES Unknown Allergies SOCIAL HISTORY No smoking Hx information available PLAN OF CARE VITAL SIGNS MEDICATIONS Medication Instructions Dosage Frequency Start Date End Date Duration Status BD Insulin Syringe 0 intramuscular 1 (one) four times daily as directed 30 Active Tramadol HCl 50 MG Oral every six hours, as needed 1 Active Humalog 100 UNIT/ML Subcutaneous three times daily with meals 32 units 30 days Active Levothyroxine Sodium 100 TAKE 1 TABLET BY MOUTH EVERY DAY 90 Active Testosterone Cypionate 200 MG/ML Intramuscular every 2 weeks 200 mg Active Pantoprazole Sodium 40 MG Oral 1 (one) every morning 1 tablet Nov, 90 days Active NovoLog 100 UNIT/ML Subcutaneous TID with meals 2 units Active Metoprolol Succinate ER 100 MG Oral 1 tab daily 1 tablet Apr, 90 days Active OneTouch Delica Lancets May, 30 Active Oxycodone HCl 5 MG Oral 1 tab up to 5x a day pain mgt. 0 Active Amitriptyline HCl 25 MG Orally at bedtime 1-2 tablets September, 30 days Active Irbesartan 300 MG Orally Once a day 1 tablet 24h 90 Active Lantus 100 Subcutaneous daily at bedtime 70 units 28 Active Amlodipine Besylate 10 MG Orally Once a day 1 tablet 24h Apr, 90 days Active Cabergoline 0.5 MG Orally once a week 1 tablet 30 Active OneTouch Ultra Blue 1 In Vitro 4 times daily as directed Jun, 30 days Active RESULTS No Results PROCEDURES Procedure Date Ordered Related Diagnosis Body Site Testosterone Cypionate (Depo-Testosterone) Jul 18, 2016 THER/PROPH/DIAG INJ, SC/IM Jul 18, 2016 IMMUNIZATIONS Vaccine Route Administration Date Status Testosterone Cypionate (Depo-Testosterone) IM Intramuscular Jul 18, 2016 Administered
--- OUTSIDE RECORDS SUMMARY | 2016-08-26 05:59 | XMS REPORT ---
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 Assessment Hypogonadism, male 257.2 Active Problem Restless legs syndrome [RLS] 333.94 [...] End Date Status Dosage Metoprolol Succinate ER [facility] [address]-25 100 MG Oral 1 tab daily May 28, 2013 1 tablet Levothyroxine Sodium [facility] [address]-64 100 MCG Orally 1 (one) daily Jun 1 tablet Lantus [facility] [address]-36 100 UNIT/ML Subcutaneous 70 at bedtime December 23, 2013 Per Pineda Kevin PA-C supervised under Bertin Crump Cortisone Acetate [facility] [address]-42 25 MG Oral 1 (one) two times daily December 23, 2013 not defined NovoLog [facility] [address]-45 100 UNIT/ML Subcutaneous 32 with meals December 23, 2013 Per Pineda Kevin PA-C supervised under Bertin Crump. Testosterone Cypionate [facility] [address]-39 200 MG/ML Intramuscular 1 ml Cabergoline [facility] [address]-00 0.5 MG Orally three times a week Mar 28, 2014 1 tablet OneTouch Delica Lancets NDC 0 1 Misc four times daily Jun 04, 2012 not defined Oxycodone HCl [facility] [address]-14 5 MG Oral 1 tab up to 5x a day pain mgt. Irbesartan [facility] [address]-91 300 MG Oral 1 (one) Tablet daily August 30, 2013 to replace Diovan due to non insurance payment Amlodipine Besylate [facility] [address]-13 10 MG Orally Once a day May 27, 2013 1 tablet Diazepam [facility] [address]-36 2 MG Oral 1 as needed Limit 2 tabs Q24H Pantoprazole Sodium [facility] [address]-50 40 MG Oral 1 (one) every morning December 23, 2013 1 tablet BD Insulin Syringe NDC 0 30G X 1/2 intramuscular 1 (one) four times daily May 02, 2013 as directed Amitriptyline HCl [facility] [address]-96 25 MG Orally at bedtime October 22, 2013 1-2 tablets OneTouch Ultra Blue NDC 0 In Vitro 2 (two) daily Jul 15, 2013 not defined Procedures Procedure Coding System Code Date INJ TESTOSTERONE CYPIONATE 1 MG CPT-4 J1071 August 05, 2014 THER/PROPH/DIAG INJ, SC/IM CPT-4 23758 August 05, 2014 Results No Known Results Summary Purpose eClinicalWorks Submission
--- OUTSIDE RECORDS SUMMARY | 2016-08-26 05:59 | XMS REPORT ---
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 Problem Hypogonadism male E29.1 Active Problem Hypercalcemia 275.42 Active 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 Problem 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 Problem Diabetes type 2, controlled 250.00 Active Assessment Hypogonadism male E29.1 Active Problem Back pain, chronic 724.5 Active Problem Sleep apnea 780.57 Active Problem Hypogonadism, male 257.2 Active Problem 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 Active Problem Hypertension 401.9 Active Problem Fibromyalgia 729.1 Active Problem intermediate (current) use of opiate analgesic V58.69 Inactive Medications Medication Code System Code Instructions Start Date End Date Status Dosage Amitriptyline HCl [facility] [address]-64 25 MG Orally at bedtime October 22, 2013 1-2 tablets Lantus [facility] [address]-16 100 UNIT/ML Subcutaneous daily at bedtime November 75 units NovoLog [facility] [address]-67 100 UNIT/ML Subcutaneous TID with meals December 23, 2013 28 units Levothyroxine Sodium [facility] 50605256254 100 Orally 1 (one) daily 1 [place] [address]-05 10 MG Orally Once a day May 27, 2013 1 tablet OneTouch Ultra Blue NDC 0 1 In Vitro 4 times daily Jul 15, 2013 as directed Irbesartan [facility] [address]-82 300 MG Orally Once a day August 30, 2013 1 tablet BD Insulin Syringe NDC 0 30G X 1/2 intramuscular 1 (one) four times daily May 02, 2013 as directed Oxycodone HCl [facility] [address]-61 5 MG Oral 1 tab up to 5x a day pain mgt. OneTouch Delica Lancets [facility] 0 1 Misc four times daily Jun 04, 2012 not defined Pantoprazole Sodium [facility] [address]-23 40 MG Oral 1 (one) every morning December 23, 2013 1 tablet Cortisone Acetate [facility] [address]-61 25 MG Oral 1 (one) two times daily December 23, 2013 not defined Metoprolol Succinate ER [facility] [address]-98 100 MG Oral 1 tab daily May 28, 2013 1 tablet Cabergoline [facility] [address]-60 0.5 MG Orally twice a week Mar 28, 2014 1 tablet Diazepam [facility] [address]-99 2 MG Oral 1 as needed Limit 2 tabs Q24H Procedures Procedure Coding System Code Date THER/PROPH/DIAG INJ, SC/IM CPT-4 61629 Feb 26, 2015 Testosterone Cypionate (Depo-Testosterone) CPT-4 J1071 Feb 26, 2015 Results No Known Results Summary Purpose eClinicalWorks Submission
--- OUTSIDE RECORDS SUMMARY | 2016-08-26 05:59 | XMS REPORT ---
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 [address]-10 5 MG Oral 1 tab up to 5x a day pain mgt. Levothyroxine Sodium [facility] 70963477118 100 Orally 1 (one) daily [address] [facility] [address]-54 100 UNIT/ML Subcutaneous daily at bedtime November 70 units BD Insulin Syringe NDC 0 30G X 1/2 intramuscular 1 (one) four times daily May 02, 2013 as directed Amitriptyline HCl [facility] [address]-11 25 MG Orally at bedtime October 22, 2013 1-2 tablets Amlodipine Besylate [facility] [address]-53 10 MG Orally Once a day May 27, 2013 1 tablet Testosterone Cypionate [facility] [address]-72 200 MG/ML Intramuscular every 2 weeks 200 mg OneTouch Ultra Blue NDC 0 1 In Vitro 4 times daily Jul 15, 2013 as directed NovoLog [facility] [address]-62 100 UNIT/ML Subcutaneous TID with meals December 23, 2013 24 units OneTouch Delfernanda Lancotto [facility] 0 1 Misc four times daily Jun 04, 2012 not defined Cabergoline [facility] [address]-34 0.5 MG Orally once every other week Mar 28, 2014 1 tablet Tramadol HCl [facility] [address]-90 50 MG Oral every six hours, as needed 1 Pantoprazole [address] [facility] [address]-02 40 MG Oral 1 (one) every morning December 23, 2013 1 tablet Irbesartan [facility] 38092971032 300 MG Orally Once a day 1 tablet Diazepam [facility] [address]-14 2 MG Oral 1 as needed Limit 2 tabs Q24H Metoprolol Succinate ER [facility] [address]-11 100 MG Oral 1 tab daily May 28, 2013 1 tablet Procedures Procedure Coding System Code Date THER/PROPH/DIAG INJ, SC/IM CPT-4 71260 Jun 03, 2015 Testosterone Cypionate (Depo-Testosterone) CPT-4 J1071 Jun 03, 2015 Results No Known Results Summary Purpose eClinicalWorks Submission
--- OUTSIDE RECORDS SUMMARY | 2016-08-26 05:59 | XMS REPORT ---
Author Author Ilene Nava [facility] eClinicalWorks Address Unknown Phone Unavailable Care Team Providers Care Triage Licensed Practical Nurse Name Role Phone Ilene Nava CP Unavailable [...] Start Date End Date Status Dosage Percodan [facility] [address]-64 4.5-0.38-325 MG Orally q6 hours Active 1 tablet as needed for breakthrough pain Vital Signs Date/Time: Feb 05, 2013 Weight 229.8 lbs Height 66 inches Blood Pressure Diastolic 88 mm Hg Blood Pressure Systolic 138 mm Hg Results No Known Results Summary Purpose eClinicalWorks Submission
--- OUTSIDE RECORDS SUMMARY | 2016-08-26 05:59 | XMS REPORT ---
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 Irbesartan [facility] 61832418419 300 MG Orally Once a day 1 tablet OneTouch Ultra Blue [facility] 0 1 In Vitro 4 times daily Jul 15, 2013 as directed Testosterone Cypionate [facility] [address]-19 200 MG/ML Intramuscular every 2 weeks 200 mg Lantus [facility] [address]-97 100 UNIT/ML Subcutaneous daily at bedtime 2am 70 units Levothyroxine Sodium [facility] 35638764999 100 Orally 1 (one) daily 1 tablet Amlodipine Besylate [facility] [address]-36 10 MG Orally Once a day May 27, 2013 1 tablet Amitriptyline HCl [facility] [address]-06 25 MG Orally at bedtime October 22, 2013 1-2 tablets Tramadol HCl [facility] [address]-50 50 MG Oral every six hours, as needed 1 Pantoprazole Sodium [facility] [address]-75 40 MG Oral 1 (one) every morning December 23, 2013 1 tablet BD Insulin Syringe [facility] 63783547077 30G X 1/2 intramuscular 1 (one) four times daily as directed NovoLog [facility] [address]-02 100 UNIT/ML Subcutaneous TID with meals December 23, 2013 24 units OneTouch Delica Lancets [facility] 0 1 Misc four times daily Jun 04, 2012 not defined Cabergoline [facility] 31803353554 0.5 MG Orally once a week 1 tablet Metoprolol Succinate ER [facility] [address]-02 100 MG Oral 1 tab daily May 28, 2013 1 tablet Procedures Procedure Coding System Code Date THER/PROPH/DIAG INJ, SC/IM CPT-4 78451 Jan 22, 2016 Testosterone Cypionate (Depo-Testosterone) CPT-4 J1071 Jan 22, 2016 Results No Known Results Summary Purpose eClinicalWorks Submission
--- OUTSIDE RECORDS SUMMARY | 2016-08-26 05:59 | XMS REPORT ---
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 V58.69 Inactive [...] Date End Date Status Dosage Cortisone Acetate [facility] [address]-72 25 MG Oral 1 (one) two times daily December 23, 2013 not defined NovoLog [facility] [address]-43 100 UNIT/ML Subcutaneous TID with meals December 23, 2013 28 units Cabergoline [facility] [address]-16 0.5 MG Orally three times a week Mar 28, 2014 1 tablet BD Insulin Syringe ND 0 30G X 1/2 intramuscular 1 (one) four times daily May 02, 2013 as directed Levothyroxine Sodium [facility] 57651153210 100 Orally 1 (one) daily 1 tablet OneTouch Delfernanda Lancets NDC 0 1 Misc four times daily Jun 04, 2012 not defined Pantoprazole Sodium [facility] [address]-20 40 MG Oral 1 (one) every morning December 23, 2013 1 tablet Amitriptyline HCl [facility] [address]-32 25 MG Orally at bedtime October 22, 2013 1-2 tablets Irbesartan [facility] [address]-94 300 MG Orally Once a day August 30, 2013 1 tablet Diazepam [facility] [address]-28 2 MG Oral 1 as needed Limit 2 tabs Q24H Metoprolol Succinate ER [facility] [address]-87 100 MG Oral 1 tab daily May 28, 2013 1 tablet Lantus [facility] [address]-70 100 UNIT/ML Subcutaneous daily at bedtime November 70 units Oxycodone HCl [facility] [address]-63 5 MG Oral 1 tab up to 5x a day pain mgt. OneTouch Ultra Blue NDC 0 In Vitro 2 (two) daily Jul 15, 2013 not defined Amlodipine Besylate [facility] [address]-45 10 MG Orally Once a day May 27, 2013 1 tablet Procedures Procedure Coding System Code Date THER/PROPH/DIAG INJ, SC/IM CPT-4 09327 December 12, 2014 Testosterone Cypionate (Depo-Testosterone) CPT-4 J1071 December 12, 2014 Results No Known Results Summary Purpose eClinicalWorks Submission
--- OUTSIDE RECORDS SUMMARY | 2016-08-26 05:59 | XMS REPORT ---
Author Author Ilene Nava [facility] eClinicalWorks Address Unknown Phone Unavailable Care Team Providers Care Director Educational Radio Name Role Phone Ilene Nava CP Unavailable [...] Instructions Start Date End Date Status Dosage Metoclopramide HCl [facility] [address]-90 10 MG Orally three times a day Active 1/2 tab Vital Signs Date/Time: Feb 05, 2013 Weight 229.8 lbs Height 66 inches Blood Pressure Diastolic 88 mm Hg Blood Pressure Systolic 138 mm Hg Results No Known Results Summary Purpose eClinicalWorks Submission
--- OUTSIDE RECORDS SUMMARY | 2016-08-26 05:59 | XMS REPORT ---
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
--- OUTSIDE RECORDS SUMMARY | 2016-08-26 05:59 | XMS REPORT ---
Author Author Ilene Nava [facility] eClinicalWorks Address Unknown Phone Unavailable Care Team Providers Care Oracle Scm Consultant Name Role Phone Ilene Nava CP Unavailable [...]
--- OUTSIDE RECORDS SUMMARY | 2016-08-26 06:00 | XMS REPORT ---
Author Author Pineda Kevin [facility] Address [address] [id number] Care Team Providers Care Pathology Laboratory Technologist Name Role Phone Dorita Pineda Unavailable [phone] PROBLEMS Type Condition ICD9-CM Code IPT18-LS Code Onset Dates Condition Status SNOMED Code Problem Diabetes type 2, uncontrolled E11.65 Active 111457519 Problem Gastro-esophageal reflux disease without esophagitis K21.9 Active 266813215 Problem Essential (primary) hypertension I10 Active 04249339 Problem Hypogonadism in male E29.1 Active 96514867 Problem 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 Active 586242768 Problem Testicular hypofunction E29.1 Active 527692653 Problem Secondary adrenal insufficiency E27.49 Active 49842613 Problem Dorsalgia, unspecified M54.9 Active 069314335 Problem Uncontrolled diabetes mellitus type 2 without complications, unspecified fpc insulin use status E11.65 Active 164138859 Problem Secondary hypothyroidism E03.8 Active 82995110 Problem Hypertension 401.9 Active 41444072 Problem care home (current) use of opiate analgesic V58.69 Inactive 447761515 Problem Fibromyalgia 729.1 Active 28347973 Problem Sleep apnea 780.57 Active 29366312 Problem 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
--- OUTSIDE RECORDS SUMMARY | 2016-08-26 06:00 | XMS REPORT ---
Author Author Pineda Kevin [facility] Address [address] [id number] Care Team Providers Care Corporate Strategy Analyst Name Role Phone FelicitaPineda george Unavailable [phone] PROBLEMS Type Condition ICD9-CM Code NVL35-KQ Code Onset Dates Condition Status SNOMED Code Problem Chronic pain syndrome G89.4 Active 683086730 Problem Essential (primary) hypertension I10 Active 69429196 Problem Diabetes type 2, uncontrolled E11.65 Active 921742444 Problem Hypogonadism in male E29.1 Active 38639521 Assessment Vitamin D deficiency E55.9 Jul, Active 41238995 Problem Uncontrolled diabetes mellitus type 2 without complications, unspecified custodial insulin use status E11.65 Active 298819415 Assessment Hypogonadism in male E29.1 Jul, Active 68969270 Assessment Prostate cancer screening Z12.5 Jul, Active 842345237 Problem Dorsalgia, unspecified M54.9 Active 730726622 Problem Gastro-esophageal reflux disease without esophagitis K21.9 Active 366642733 Problem Secondary hypothyroidism E03.8 Active 22839545 Problem Secondary adrenal insufficiency E27.49 Active 18961817 Problem Sleep apnea 780.57 Active 03931508 Problem Hypertension 401.9 Active 67991216 Problem 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 Active 106614869 Problem Fibromyalgia 729.1 Active 21441753 Problem Hypercalcemia 275.42 Active 52469866 Problem 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 81147055 Problem correction (current) use of opiate analgesic V58.69 Inactive 251457182 Problem 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 40544567 Problem Restless legs syndrome [RLS] 333.94 Active 48874577 Problem Diabetes type 2, controlled E11.9 Active 52545241 ALLERGIES Unknown Allergies SOCIAL HISTORY No smoking Hx information available PLAN OF CARE Activity Details Pending Test CBC (INCLUDES DIFF/PLT) 47112 Pending Test PSA, [place] 52336 Pending Test VITAMIN D, 25-OH, [place] [address] Pending Test TESTOSTERONE, TOTAL, LC/MS/MS 11599 ,Reason: VITAL SIGNS MEDICATIONS Medication Instructions Dosage Frequency Start Date End Date Duration Status Amitriptyline HCl 25 MG Orally at bedtime 1-2 tablets September, 30 days Active Humalog 100 UNIT/ML Subcutaneous three times daily with meals 32 units 30 days Active Pantoprazole Sodium 40 MG Oral 1 (one) every morning 1 tablet Nov, 90 days Active Amlodipine Besylate 10 MG Orally Once a day 1 tablet 24h Apr, 90 days Active Levothyroxine Sodium 100 TAKE 1 TABLET BY MOUTH EVERY DAY 90 Active Testosterone Cypionate 200 MG/ML Intramuscular every 2 weeks 200 mg Active OneTouch Delica Lancets May, 30 Active Lantus 100 Subcutaneous daily at bedtime 70 units 28 Active Irbesartan 300 MG Orally Once a day 1 tablet 24h 90 Active Cabergoline 0.5 MG Orally once a week 1 tablet 30 Active BD Insulin Syringe 0 intramuscular 1 (one) four times daily as directed 30 Active NovoLog 100 UNIT/ML Subcutaneous TID with meals 2 units Active OneTouch Ultra Blue 1 In Vitro 4 times daily as directed Jun, 30 days Active Tramadol HCl 50 MG Oral every six hours, as needed 1 Active Metoprolol Succinate ER 100 MG Oral 1 tab daily 1 tablet Apr, 90 days Active Oxycodone HCl 5 MG Oral 1 tab up to 5x a day pain mgt. 0 Active RESULTS No Results PROCEDURES Procedure Date Ordered Related Diagnosis Body Site Billed by outside source August 23, 2016 IMMUNIZATIONS No Known Immunizations
--- OUTSIDE RECORDS SUMMARY | 2016-08-26 06:00 | XMS REPORT ---
Author Author Ilene Nava [facility] eClinicalWorks Address Unknown Phone Unavailable Care Team Providers Care Inspector Tubes Name Role Phone Ilene Nava CP Unavailable [...]
--- OUTSIDE RECORDS SUMMARY | 2016-08-26 06:00 | XMS REPORT ---
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 Problem Dorsalgia, unspecified M54.9 Active Problem Gastro-esophageal reflux disease without esophagitis K21.9 Active Problem Secondary hypothyroidism E03.8 Active Problem Chronic pain syndrome G89.4 Active Problem Diabetes type 2, controlled E11.9 Active Problem Essential (primary) hypertension I10 Active Problem Diabetes type 2, uncontrolled E11.65 Active Assessment 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 Problem Sleep apnea 780.57 Active Problem Hypertension 401.9 Active Problem 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 Active Problem 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 V58.69 Inactive Problem Fibromyalgia 729.1 Active Problem Restless legs syndrome [RLS] 333.94 Active Medications Medication Code System Code Instructions Start Date End Date Status Dosage Amlodipine Besylate [facility] [address]-98 10 MG Orally Once a day May 27, 2013 1 tablet Metoprolol Succinate ER [facility] [address]-92 100 MG Oral 1 tab daily May 28, 2013 1 tablet OneTouch Delica Lancets NDC 0 1 Misc four times daily Jun 04, 2012 not defined OneTouch Ultra Blue NDC 0 1 In Vitro 4 times daily Jul 15, 2013 as directed Testosterone Cypionate [facility] [address]-44 200 MG/ML Intramuscular every 2 weeks 200 mg Cabergoline [facility] 14640088916 0.5 MG Orally once a week 1 tablet Pantoprazole Sodium [facility] [address]-50 40 MG Oral 1 (one) every morning December 23, 2013 1 tablet Oxycodone HCl [facility] [address]-78 5 MG Oral 1 tab up to 5x a day pain mgt. Tramadol HCl [facility] [address]-76 50 MG Oral every six hours, as needed 1 Levothyroxine Sodium [facility] 52190550074 100 Orally 1 (one) daily 1 tablet Amitriptyline HCl [facility] [address]-95 25 MG Orally at bedtime October 22, 2013 1-2 tablets Irbesartan [facility] 14088290259 300 MG Orally Once a day 1 tablet NovoLog [facility] [address]-75 100 UNIT/ML Subcutaneous TID with meals December 23, 2013 24 units BD Insulin Syringe [facility] 95567832480 30G X 1/2 intramuscular 1 (one) four times daily as directed Lantus [facility] [address]-48 100 UNIT/ML Subcutaneous daily at bedtime 2am 70 units Procedures Procedure Coding System Code Date THER/PROPH/DIAG INJ, SC/IM CPT-4 36855 Feb 16, 2016 Testosterone Cypionate (Depo-Testosterone) CPT-4 J1071 Feb 16, 2016 Results No Known Results Summary Purpose eClinicalWorks Submission
--- OUTSIDE RECORDS SUMMARY | 2016-08-26 06:00 | XMS REPORT ---
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 Problem Diabetes type 2, controlled E11.9 Active 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 Problem Chronic pain syndrome 338.4 Active Problem Diabetes type 2, controlled 250.00 Active Problem Hypercalcemia 275.42 Active Assessment Hypogonadism, male 257.2 Active Problem Fibromyalgia 729.1 Active Problem Sleep apnea 780.57 Active Problem Back pain, chronic 724.5 Active Problem Hypogonadism, male 257.2 Active Problem 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 Active Problem Hypertension 401.9 Active Medications Medication Code System Code Instructions Start Date End Date Status Dosage Oxycodone HCl [facility] [address]-10 5 MG Oral 1 tab up to 5x a day pain mgt. OneTouch Delica Lancets [facility] 0 1 Misc four times daily Jun 04, 2012 not defined Amitriptyline HCl [facility] [address]-34 25 MG Orally at bedtime October 22, 2013 1-2 tablets Irbesartan [facility] [address]-04 300 MG Orally Once a day August 30, 2013 1 tablet Amlodipine Besylate [facility] [address]-65 10 MG Orally Once a day May 27, 2013 1 tablet Lantus [facility] [address]-42 100 UNIT/ML Subcutaneous daily at bedtime November 75 units Cabergoline [facility] [address]-43 0.5 MG Orally twice a week Mar 28, 2014 1 tablet Levothyroxine Sodium [facility] 71849072879 100 Orally 1 (one) daily 1 tablet Pantoprazole Sodium [facility] [address]-32 40 MG Oral 1 (one) every morning December 23, 2013 1 tablet Diazepam [facility] [address]-79 2 MG Oral 1 as needed Limit 2 tabs Q24H BD Insulin Syringe NDC 0 30G X 1/2 intramuscular 1 (one) four times daily May 02, 2013 as directed OneTouch Ultra Blue NDC 0 1 In Vitro 4 times daily Jul 15, 2013 as directed Cortisone Acetate [facility] [address]-69 25 MG Oral 1 (one) two times daily December 23, 2013 not defined NovoLog [facility] [address]-79 100 UNIT/ML Subcutaneous TID with meals December 23, 2013 28 units Metoprolol Succinate ER [facility] [address]-98 100 MG Oral 1 tab daily May 28, 2013 1 tablet Procedures Procedure Coding System Code Date INJ TESTOSTERONE CYPIONATE 1 MG CPT-4 J1071 Feb 06, 2015 THER/PROPH/DIAG INJ, SC/IM CPT-4 10744 Feb 06, 2015 Results No Known Results Summary Purpose eClinicalWorks Submission
--- OUTSIDE RECORDS SUMMARY | 2016-08-26 06:00 | XMS REPORT ---
Author Author Ilene Nava [facility] eClinicalWorks Address Unknown Phone Unavailable Care Team Providers Care Lithography Contact Worker Name Role Phone Ilene Nava CP Unavailable [...] Date End Date Status Dosage Amlodipine Besylate [facility] [address]-40 03/17 Orally Once a day Active 1 tablet Vital Signs Date/Time: Feb 05, 2013 Weight 229.8 lbs Height 66 inches Blood Pressure Diastolic 88 mm Hg Blood Pressure Systolic 138 mm Hg Results No Known Results Summary Purpose eClinicalWorks Submission
--- OUTSIDE RECORDS SUMMARY | 2016-08-26 06:01 | XMS REPORT | Referral Summary ---
Author Author [facility] Organization [facility] Address Unknown Phone Unavailable Care Team Providers Care Garment Looper Name Role Phone Jeanette Nava Primary Care Physician [phone] Encounter [facility]OLAND [phone] Date(s): 10/23/14 - 10/24/14 [facility] [address] [place] [address] [phone] Discharge Diagnosis: Bacterial sepsis Final: UNSPECIFIED SEPTICEMIA Final: CELLULITIS AND ABSCESS OF LEG, EXCEPT FOOT Final: Sepsis Final: CALCULUS OF GALLBLADDER WITHOUT MENTION OF CHOLECYSTITIS, WITHOUT MENTION OF OBSTRUCTION Final: Myalgia and myositis, unspecified Final: UNSPECIFIED ESSENTIAL HYPERTENSION Final: Diabetes mellitus without mention of complication, type II or unspecified type, not stated as uncontrolled Final: UNSPECIFIED HYPOTHYROIDISM Final: HYPOPOTASSEMIA Final: IRON DEFICIENCY ANEMIA, UNSPECIFIED Final: OTHER LYMPHEDEMA Final: Insomnia, unspecified Discharge Disposition: 01-Home or Self Care Attending Physician: Theodora Law MD Admitting Physician: Theodora Law MD Vital Signs Most recent to 1 oldest [Reference Range]: Temperature Oral 37.7 degC [35.8-37.3 degC] *HI* (10/24/14 11:00 AM) Peripheral Pulse 84 bpm Rate [60-100 bpm] (10/24/14 11:00 AM) Heart Rate Monitored 89 bpm [60-100 bpm] (10/23/14 9:47 PM) Respiratory Rate 18 br/min [14-20 br/min] (10/24/14 11:00 AM) Blood Pressure 110/64 mmHg [90-140/60-90 mmHg] (10/24/14 11:00 AM) Mean Arterial 77 mmHg Pressure, Cuff (10/23/14 7:30 PM) SpO2 95 % (10/24/14 11:00 AM) Problem List Condition Effective Dates Status Health Status Informant Acute Active pain(Confirmed) At risk for Active infection(Confirmed) 1 Obesity(Confirmed) Active patient 1Problem added automatically by system based on initiation of At Risk for Infection in Nutrition Plan of Care Allergies, Adverse Reactions, Alerts Substance Reaction Severity Status contrast media Nausea Severe Active (iodine-based) gabapentin unknown Unknown Active PARoxetine unknown Unknown Active pregabalin unknown Unknown Active rOPINIRole unknown Unknown Active Medications amitriptyline 25 mg, Oral, Bedtime (once a day), 0 Refill(s) Start Date: 10/23/14 Status: Ordered amLODIPine 10 mg, Oral, Bedtime (once a day), 0 Refill(s) Start Date: 10/23/14 Status: Ordered cabergoline 0.5 mg oral tablet 0.5 mg 1 tabs, Oral, Mon/Thurs, # 8 tabs, 0 Refill(s) Start Date: 10/23/14 Status: Ordered clobetasol 0.05% topical ointment 1 nathan, Topical, BID, as needed, applies to feet, 0 Refill(s) Start Date: 10/23/14 Status: Ordered ferrous sulfate 325 mg (65 mg elemental iron) oral delayed release tablet 325 mg 1 tabs, Oral, BID, # 60 tabs, 0 Refill(s) Start Date: 10/24/14 Status: Ordered irbesartan 300 mg oral tablet 300 mg 1 tabs, Oral, Bedtime (once a day), 0 Refill(s) Start Date: 10/23/14 Status: Ordered Lantus 100 units/mL subcutaneous solution 70 units, SubCutaneous, Bedtime (once a day), 0 Refill(s) Start Date: 10/23/14 Status: Ordered levothyroxine 100 mcg, Oral, Daily, 0 Refill(s) Start Date: 10/23/14 Status: Ordered metoprolol succinate 100 mg oral tablet, extended release 100 mg 1 tabs, Oral, Bedtime (once a day), 0 Refill(s) Start Date: 10/23/14 Status: Ordered NovoLOG 100 units/mL subcutaneous solution 24 units, SubCutaneous, TIDAC, 0 Refill(s) Start Date: 10/23/14 Status: Ordered oxyCODONE 5 mg oral tablet 5 mg 1 tabs, Oral, q4hr, as needed for pain, 0 Refill(s) Start Date: 10/23/14 Status: Ordered pantoprazole 40 mg, Oral, Daily, 0 Refill(s) Start Date: 10/23/14 Status: Ordered Rolaids 1 tabs, Oral, QIDPCHS, as needed, 0 Refill(s) Start Date: 10/23/14 Status: Ordered traMADol 50 mg oral tablet 100 mg 2 tabs, Oral, q8hr, as needed for pain, 0 Refill(s) Start Date: 10/23/14 Status: Ordered Results Hematology Most recent to 1 oldest [Reference Range]: WBC [4.8-10.8 19.6 10*3/uL 10*3/uL] *HI* (10/24/14 6:57 AM) RBC [4.60-6.20 4.38 10*6/uL 10*6/uL] *LOW* (10/24/14 6:57 AM) Hgb [14.0-18.0 12.6 gm/dL gm/dL] *LOW* (10/24/14 6:57 AM) Hct [42.0-52.0 %] 35.6 % *LOW* (10/24/14 6:57 AM) MCV [82.0-99.0 fL] 81.3 fL *LOW* (10/24/14 6:57 AM) MCH [27.0-32.0 pg] 28.8 pg (10/24/14 6:57 AM) MCHC [32.0-36.0 35.4 gm/dL gm/dL] (10/24/14 6:57 AM) RDW [11.5-14.5 %] 12.9 % (10/24/14 6:57 AM) Platelet [150-400 304 10*3/uL 10*3/uL] (10/24/14 6:57 AM) MPV [9.4-12.3 fL] 9.5 fL (10/24/14 6:57 AM) Neutrophils [51-75 84 % %] *HI* (10/24/14 6:57 AM) Band Man [0-8 %] 11 % *HI* (10/24/14 6:57 AM) Lymphocytes [20-46 4 % %] *LOW* (10/24/14 6:57 AM) Monocytes [4-11 %] 1 % *LOW* (10/24/14 6:57 AM) Eosinophils [0-4 %] 0 % (10/24/14 6:57 AM) Basophils [0-2 %] 0 % (10/24/14 6:57 AM) Neutro Absolute 18.62 10*3 [1.90-7.00 10*3] *HI* (10/24/14 6:57 AM) Lymph Absolute 0.78 10*3 [0.80-3.30 10*3] *LOW* (10/24/14 6:57 AM) [place] Absolute 0.20 10*3 [0.30-1.00 10*3] *LOW* (10/24/14 6:57 AM) Eos Absolute 0.00 10*3 [0.00-0.50 10*3] (10/24/14 6:57 AM) Baso Absolute 0.02 10*3 [0.00-0.20 10*3] (10/24/14 6:57 AM) Nucleated RBC 0.0 /100 WBC Automated [0 /100 (10/24/14 6:57 AM) WBC] Differential Reviewed (10/24/14 6:57 AM) Sed Rate [0-15 33 mm/hr mm/hr] *HI* (10/24/14 6:57 AM) Chemistry Most recent to 1 oldest [Reference Range]: Sodium Lvl [136-144 136 mEq/L mEq/L] (10/24/14 6:57 AM) Potassium Lvl 4.6 mEq/L [3.6-5.1 mEq/L] (10/24/14 6:57 AM) Chloride [99-109 102 mEq/L mEq/L] (10/24/14 6:57 AM) CO2 [22-32 mEq/L] 27 mEq/L (10/24/14 6:57 AM) AGAP [3-20] 7 (10/24/14 6:57 AM) BUN [4-20 mg/dL] 12 mg/dL (10/24/14 6:57 AM) Glucose Lvl [70-100 133 mg/dL mg/dL] *HI* (10/24/14 6:57 AM) Creatinine Lvl 1.01 mg/dL [0.64-1.27 mg/dL] (10/24/14 6:57 AM) eGFR [>60] >60 1 (10/24/14 6:57 AM) Calcium Lvl 8.3 mg/dL [8.6-10.0 mg/dL] *LOW* (10/24/14 6:57 AM) Albumin Lvl [3.5-4.8 3.1 gm/dL gm/dL] *LOW* (10/24/14 6:57 AM) Total Protein 6.3 gm/dL [6.1-7.9 gm/dL] (10/24/14 6:57 AM) Globulin [1.9-4.3 3.2 gm/dL gm/dL] (10/24/14 6:57 AM) ALT [17-63 U/L] 34 U/L (10/24/14 6:57 AM) AST [15-41 U/L] 22 U/L (10/24/14 6:57 AM) Alk Phos [26-104 74 U/L U/L] (10/24/14 6:57 AM) Bili Total [0.2-1.2 0.8 mg/dL 2 mg/dL] (10/24/14 6:57 AM) Iron [65-175 mcg/dL] 14 mcg/dL *LOW* (10/24/14 6:57 AM) TIBC [268-490 274 mcg/dL mcg/dL] (10/24/14 6:57 AM) Iron Sat [11-46 %] 5 % *LOW* (10/24/14 6:57 AM) Transferrin [180-329 184 mg/dL mg/dL] (10/24/14 6:57 AM) Ferritin Lvl [24-340 171 ng/mL ng/mL] (10/24/14 6:57 AM) Magnesium Lvl 1.7 mg/dL [1.8-2.5 mg/dL] *LOW* (10/24/14 6:57 AM) Phosphorus [2.4-4.7 3.5 mg/dL 3 mg/dL] (10/24/14 6:57 AM) Lactic Acid Lvl 1.9 mEq/L [0.5-2.2 mEq/L] (10/23/14 7:02 PM) Blood Glucose, 147 mg/dL Capillary [70-100 *HI* mg/dL] (10/24/14 11:58 AM) Procalcitonin 3.55 ng/mL 4 [0.00-0.09 ng/mL] *HI* (10/24/14 6:57 AM) 1Result Comment: Multiply eGFR results by 1.21 for race. 2Result Comment: Naproxen, specifically the metabolite O-desmethylnaproxen, may cause spurious elevation in Total Bilirubin levels. 3Result Comment: High dosages of liposomal Amphotericin B (AmBisome) therapy or other drug preparations that use a liposomal envelope to facilitate drug delivery may cause falsely elevated results for phosphorus. 4Result Comment: Normal: <0.1 ng/mL (infants >72 hrs - adults) Suspected Lower Respiratory Tract Infection 0.10-0.25 ng/mL=Low likelihood for bacterial infection; Antibiotics discouraged. >0.25 ng/mL=Increased likelihood for bacterial infection; Antibiotics encouraged. Suspected Sepsis: Strongly consider initiating antibiotics in all unstable patients. 0.10-0.50 ng/mL=Low likelihood for sepsis; Antibiotics discouraged. >0.50 ng/mL=Increased likelihood for sepsis; Antibiotics encouraged. Decisions on antibiotic use should not be based solely on procalcitonin levels. If antibiotics are administered, repeat procalcitonin testing should be obtained every 2-3 days to consider early antibiotic cessation. PCT is a dynamic biomarker and most useful when trends are analyzed over time in accompaniment with other clinical data. Interpretation should be based upon clinical context and algorithms. Urinalysis Most recent to 1 oldest [Reference Range]: UA Color Lt Yellow (10/23/14 5:49 PM) UA Appear Clear (10/23/14 5:49 PM) UA pH [5.0-8.0] 7.0 (10/23/14 5:49 PM) UA Leuk Est Negative [Negative] (10/23/14 5:49 PM) UA Nitrite Negative [Negative] (10/23/14 5:49 PM) UA Protein Negative [Negative] (10/23/14 5:49 PM) UA Glucose Negative [Negative] (10/23/14 5:49 PM) UA Ketones Negative [Negative] (10/23/14 5:49 PM) UA Urobilinogen Negative [<1.0] (10/23/14 5:49 PM) UA Bili [Negative] Negative (10/23/14 5:49 PM) UA Blood [Negative] Negative (10/23/14 5:49 PM) UA Spec Grav 1.013 [1.003-1.030] (10/23/14 5:49 PM) Type Clean Catch (10/23/14 5:49 PM) Microbiology Reports TEST: Blood Culture STATUS: Auth (Verified) BODY SITE: SOURCE: Blood COLLECTED DATE/TIME: 10/23/14 7:02 PM Blood Culture No growth after 5 days of incubation. TEST: Blood Culture STATUS: Auth (Verified) BODY SITE: SOURCE: Blood COLLECTED DATE/TIME: 10/23/14 7:02 PM Blood Culture No growth after 5 days of incubation. Immunizations No data available for this section Procedures No data available for this section Social History Social History Type Response Smoking Status Former smoker; Type: Cigarettes; Tobacco use per day: 1 Pack ; Number of years: 201 1quit smokiing 20 years ago Assessment and Plan No data available for this section
--- OUTSIDE RECORDS SUMMARY | 2016-08-26 06:02 | XMS REPORT ---
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 Active Assessment Testicular hypofunction E29.1 Active Problem Hypogonadism, male 257.2 Active Problem Hypertension 401.9 Active Problem Fibromyalgia 729.1 Active Problem shelter (current) use of opiate analgesic V58.69 Inactive Problem Sleep apnea 780.57 Active Problem Restless legs syndrome [RLS] 333.94 Active Medications Medication Code System Code Instructions Start Date End Date Status Dosage Cortisone Acetate [facility] [address]-89 25 MG Oral 1 (one) two times daily December 23, 2013 not defined Testosterone Cypionate [facility] [address]-10 200 MG/ML Intramuscular every 2 weeks 200 mg Pantoprazole Sodium [facility] [address]-18 40 MG Oral 1 (one) every morning December 23, 2013 1 tablet Oxycodone HCl [facility] [address]-44 5 MG Oral 1 tab up to 5x a day pain mgt. Metoprolol Succinate ER [facility] [address]-44 100 MG Oral 1 tab daily May 28, 2013 1 tablet Irbesartan [facility] 58760556313 300 MG Orally Once a day 1 tablet Lantus [facility] [address]-35 100 UNIT/ML Subcutaneous daily at bedtime November 75 units OneTouch Ultra Blue [facility] 0 1 In Vitro 4 times daily Jul 15, 2013 as directed BD Insulin Syringe NDC 0 30G X 1/2 intramuscular 1 (one) four times daily May 02, 2013 as directed Amlodipine Besylate [facility] [address]-84 10 MG Orally Once a day May 27, 2013 1 tablet Levothyroxine Sodium [facility] 75128551035 100 Orally 1 (one) daily 1 tablet NovoLog [facility] [address]-69 100 UNIT/ML Subcutaneous TID with meals December 23, 2013 28 units Cabergoline [facility] [address]-62 0.5 MG Orally twice a week Mar 28, 2014 1 tablet Diazepam [facility] [address]-84 2 MG Oral 1 as needed Limit 2 tabs Q24H Amitriptyline HCl [facility] [address]-77 25 MG Orally at bedtime October 22, 2013 1-2 tablets OneTouch Delica Lancets [place] 0 1 Misc four times daily Jun 04, 2012 not defined Procedures Procedure Coding System Code Date INJ TESTOSTERONE CYPIONATE 1 MG CPT-4 J1071 Apr 08, 2015 THER/PROPH/DIAG INJ, SC/IM CPT-4 81159 Apr 08, 2015 Results No Known Results Summary Purpose [employer] Submission
--- OUTSIDE RECORDS SUMMARY | 2016-08-26 06:02 | XMS REPORT | Continuity of Care Document ---
Author Author [facility] Organization [facility] Address Unknown Phone Unavailable Allergies Active Description Code Type Severity Reaction Onset Reported/Identified Relationship to Patient Clinical Status Yes No Known Allergies Drug Allergy 07/04/2012 Yes No Known Allergies Drug Allergy N/A N/A 07/04/2012 Yes No Known Drug Allergies Drug Allergy 07/04/2012 Yes No Known Drug Allergies Drug Allergy N/A N/A 07/04/2012 Yes No Known Food Allergies Food Allergy 07/04/2012 Yes No Known Food Allergies Food Allergy N/A N/A 07/04/2012 Yes Iodinated Contrast Media - IV Dye Iodinated Contrast Media - IV Dye Drug Allergy Unknown . 11/06 Yes gabapentin gabapentin Drug Allergy Unknown HEADACHES 07/30/2016 Yes Iodinated Contrast Media - Oral and Iodinated Contrast Media - Oral and Drug Allergy Unknown . 08/2016 Yes Paroxetine paroxetine Drug Allergy Unknown VOMITING/ DIARRHEA 07/30/2016 Yes pregabalin pregabalin Drug Allergy Unknown PANIC ATTACK 07/30/2016 Yes ropinirole ropinirole Drug Allergy Unknown INCREASED RESTLESSNESS 07/30/2016 Medications Problems Date Dx Coded Attending Type Code Diagnosis Diagnosed By 07/04/2012 Nando Solorzano MD Final 250.00 DM2/NOS UNCOMP NSU 07/04/2012 Nando Solorzano MD Final 401.9 HYPERTENSION NOS 07/04/2012 Nando Solorzano MD Final 457.1 OTHER LYMPHEDEMA 07/04/2012 Nando Solorzano MD Final 729.5 PAIN IN LIMB 07/04/2012 Nando Solorzano MD 729.81 LIMB SWELLING 02/27/2013 Priti Eagle MD, Kan Galicia Final 729.1 MYALGIA MYOSITIS NOS 07/31/2013 Birdie RODRIGUEZ, Jacki Reid 724.5 BACKACHE NOS 01/15/2014 Elaina Cooper MD 038.9 SEPTICEMIA NOS 01/15/2014 Elaina Cooper MD 244.9 HYPOTHYROIDISM NOS 01/15/2014 Cooper MD, Elaina A F 250.00 DIAB ARUN WO COMPL, TYPE II OR UNSPEC TYPE, NOT UN 01/15/2014 Elaina Cooper MD F 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 01/15/2014 Elaina Cooper MD F 272.4 HYPERLIPIDEMIA NEC/NOS 01/15/2014 Elaina Cooper MD F 278.00 OBESITY, NOS 01/15/2014 Elaina Cooper MD F 338.29 OTHER CHRONIC PAIN 01/15/2014 Elaina Cooper MD F 401.9 HYPERTENSION NOS 01/15/2014 Elaina Cooper MD F 457.1 OTHER LYMPHEDEMA 01/15/2014 Elaina Cooper MD F 518.84 ACUTE AND CHRONIC RESPIRATORY FAILURE 01/15/2014 Elaina Cooper MD F 530.81 ESOPHAGEAL REFLUX 01/15/2014 Elaina Cooper MD F 682.6 CELLULITIS OF LEG 01/15/2014 Elaina Cooper MD F 729.1 MYALGIA AND MYOSITIS NOS 01/15/2014 Elaina Cooper MD A 786.05 SHORTNESS OF BREATH 01/15/2014 Elaina Cooper MD F 786.59 CHEST PAIN NEC 01/15/2014 Elaina Cooper MD F 995.91 SEPSIS 01/15/2014 Elaina Cooper MD F V85.41 BODY MASS INDEX 40.0-44.9, ADULT 11/04/2014 Nando Thompson MD 250.00 DIAB ARUN WO COMPL, TYPE II OR UNSPEC TYPE , NOT UN 11/04/2014 Nando Thompson MD 401.9 HYPERTENSION NOS 11/04/2014 Nando Thompson MD 574.00 CHOLELITH W AC CHOLECYST 11/04/2014 Nando Thompson MD 574.10 CHOLELITH W CHOLECYS NEC 11/04/2014 Nando Thompson MD V10.88 HX-ENDOCRINE MALIGN NEC 11/06/2014 Cedrick Foreman MD 250.00 DIAB ARUN WO COMPL, TYPE II OR UNSPEC TYPE , NOT UN 11/06/2014 Cedrick Foreman MD 327.23 OBSTRUCTIVE SLEEP APNEA (ADULT) (PEDIATRIC ) 11/06/2014 Cedrick Foreman MD 401.9 HYPERTENSION NOS 11/06/2014 Cedrick Foreman MD 518.81 ACUTE RESPIRATORY FAILURE 11/06/2014 Ahsan RODRIGUEZ, Cedrick Reid 780.97 11/06/2014 Ahsan RODRIGUEZ, Cedrick Welch 965.00 POISONING-OPIUM NOS 11/06/2014 Ahsan RODRIGUEZ, Cedrick Welch E850.2 ACC POISON-OPIATES NEC Procedures Code Description Performed By Performed On 51.23 LAPAROSCOPIC CHOLECYSTECTOMY Nando Thompson MD 11/04/2014 Results Test Result Range URINALYSIS, ROUTINE - 09/13/13 18:30 UA LEUKOCYTE ESTERASE DIPSTICK TRACE NEGATIVE UA NITRITE DIPSTICK NEGATIVE NEGATIVE UA PROTEIN DIPSTICK TRACE NEGATIVE UA GLUCOSE DIPSTICK NEGATIVE NEGATIVE UA KETONE DIPSTICK NEGATIVE NEGATIVE UA UROBILINOGEN DIPSTICK NORMAL NORMAL UA BILIRUBIN DIPSTICK NEGATIVE NEGATIVE UA BLOOD DIPSTICK NEGATIVE NEGATIVE UA SPECIFIC GRAVITY 1.015 1.015-1.025 UR PH 5.0 5.0-7.0 UA MICROSCOPIC - 09/13/13 18:30 UA HYALINE CAST 2-5 cast/lpf 0 - 1 UA MUCUS 3+ NEG TO 1+ UA RBC 0-3 rbc/hpf 0 - 3 UA VOLUME FOR EXAM 12.0 mL (12mL STD) UA WBC 0-1 wbc/hpf 0 - 5 CBC W/DIFF - 09/13/13 19:00 BASOPHIL # 0.1 k/cumm 0.0-0.2 BASOPHIL % 1 % 0-1 EOSINOPHIL # 0.5 k/cumm 0.1-0.5 EOSINOPHIL % 7 % 2-4 GRANULOCYTE # 4.0 k/cumm 2.0-9.0 GRANULOCYTE % 60 % 50-75 LYMPHOCYTE # 1.7 k/cumm 1.0-4.0 LYMPHOCYTE % 25 % 20-30 MEAN CELL HGB 29.1 pg 27.0-33.0 MEAN CELL HGB CONCENTRATION 36.5 g/dL 32.0-37.0 MEAN CELL VOLUME 79.8 fl 80.0-100.0 MONOCYTE # 0.5 k/cumm 0.1-1.0 MONOCYTE % 7 % 4-6 RED BLOOD CELL 4.70 m/cumm 4.00-6.00 RED CELL DISTRIBUTION WIDTH 12.6 % 11.0- 15.6 WHITE BLOOD CELL 6.7 k/cumm 5.0-10.0 HEMOGLOBIN 13.7 gm/dL 14.0-18.0 HEMATOCRIT 37.5 % 40.0-54.0 PLATELET COUNT 273 k/cumm 150-450 METABOLIC PANEL, BASIC - 09/13/13 19:00 POTASSIUM 3.9 mmol/L 3.5-5.3 EST GFR (MDRD) > 60 mL/min > 59 ANION GAP 9 mmol/L 5-15 EST CrCl (CG) > 60 mL/min > 59 GLUCOSE 196 mg/dL 70-99 CALCIUM 9.0 mg/dL 8.5-10.1 BLOOD UREA NITROGEN 14 mg/dL 7-20 CREATININE 1.2 mg/dL 0.8-1.3 SODIUM 137 mmol/L 135-148 CHLORIDE 99 mmol/L 98-110 CARBON DIOXIDE 29 mmol/L 21-32 URINALYSIS, ROUTINE - 10/11/13 10:30 UA LEUKOCYTE ESTERASE DIPSTICK 1+ NEGATIVE UA NITRITE DIPSTICK NEGATIVE NEGATIVE UA PROTEIN DIPSTICK NEGATIVE NEGATIVE UA GLUCOSE DIPSTICK NEGATIVE NEGATIVE UA KETONE DIPSTICK NEGATIVE NEGATIVE UA UROBILINOGEN DIPSTICK NORMAL NORMAL UA BILIRUBIN DIPSTICK NEGATIVE NEGATIVE UA BLOOD DIPSTICK NEGATIVE NEGATIVE UA SPECIFIC GRAVITY 1.010 1.015-1.025 UR PH 7.0 5.0-7.0 UA MICROSCOPIC - 10/11/13 10:30 UA BACTERIA 1+ NEGATIVE UA EPITHELIAL CELLS 1+ epi/hpf 0 - 1+ UA RBC 0 rbc/hpf 0 - 3 UA VOLUME FOR EXAM 12.0 mL (12mL STD) UA WBC 0-1 wbc/hpf 0 - 5 CHEM/HEM PROFILE-BEDSIDE - 01/15/14 08:33 POTASSIUM 3.6 mmol/L 3.5-5.3 METHOD Bedside ANION GAP 22 mmol/L 10-20 METHOD Bedside GLUCOSE 216 mg/dL 70-99 BLOOD UREA NITROGEN 10 mg/dL 7-20 CREATININE 1.0 mg/dL 0.8-1.3 HEMOGLOBIN 15.0 gm/dL 14.0-18.0 HEMATOCRIT 44.0 % 40.0-54.0 SODIUM 142 mmol/L 135-148 CHLORIDE 98 mmol/L 98-110 CARBON DIOXIDE 26 mmol/L 21-32 CALCIUM IONIZED 4.6 mg/dL 4.5-5.3 TROPONIN I BEDSIDE - 01/15/14 08:35 METHOD Bedside TROPONIN I < 0.04 ng/mL < 0.11 CBC W/DIFF - 01/15/14 08:45 EOSINOPHIL # 0.3 k/cumm 0.1-0.5 EOSINOPHIL % 2 % 2-4 GRANULOCYTE # 13.2 k/cumm 2.0-9.0 LYMPHOCYTE # 1.5 k/cumm 1.0-4.0 LYMPHOCYTE % 10 % 20-30 MEAN CELL HGB 29.6 pg 27.0-33.0 MEAN CELL HGB CONCENTRATION 35.3 g/dL 32.0-37.0 MEAN CELL VOLUME 83.7 fl 80.0-100.0 MONOCYTE # 0.3 k/cumm 0.1-1.0 MONOCYTE % 2 % 4-6 RED BLOOD CELL 4.97 m/cumm 4.00-6.00 RED CELL DISTRIBUTION WIDTH 13.3 % 11.0- 15.6 WHITE BLOOD CELL 15.3 k/cumm 5.0-10.0 HEMOGLOBIN 14.7 gm/dL 14.0-18.0 HEMATOCRIT 41.6 % 40.0-54.0 PLATELET COUNT 239 k/cumm 150-400 MANUAL DIFF(R) - 01/15/14 08:45 BAND % 13 % 0-10 DIFFERENTIAL MANUAL RBC MORPH NOTED SEGMENTED NEUTROPHIL % 73 % 50-70 HEPATIC FUNCTION PANEL - 01/15/14 08:45 BILI UNCONJUGATED 0.7 mg/dL 0.0-0.7 AST/SGOT 30 Units/L 10-37 ALT/SGPT 55 Units/L < 66 TOTAL PROTEIN 7.3 gm/dL 6.4-8.2 ALBUMIN 3.8 gm/dL 3.4-5.0 BILI TOTAL 0.8 mg/dL 0.0-1.0 ALKALINE PHOSPHATASE TOTAL 70 IU/L 45- 117 BILI CONJUGATED 0.1 mg/dL 0.0-0.3 LIPASE - 01/15/14 08:45 LIPASE 213 Units/L 73-393 URINALYSIS, ROUTINE - 01/15/14 08:49 UA LEUKOCYTE ESTERASE DIPSTICK NEGATIVE NEGATIVE UA NITRITE DIPSTICK NEGATIVE NEGATIVE UA PROTEIN DIPSTICK NEGATIVE NEGATIVE UA GLUCOSE DIPSTICK NEGATIVE NEGATIVE UA KETONE DIPSTICK NEGATIVE NEGATIVE UA UROBILINOGEN DIPSTICK NORMAL NORMAL UA BILIRUBIN DIPSTICK POSITIVE NEGATIVE UA BLOOD DIPSTICK NEGATIVE NEGATIVE UA COMMENT UA SPECIFIC GRAVITY 1.020 1.015-1.025 UR PH 5.0 5.0-7.0 CHEM/HEM PROFILE-BEDSIDE - 01/15/14 10:52 POTASSIUM 3.5 mmol/L 3.5-5.3 METHOD Bedside ANION GAP 14 mmol/L 10-20 METHOD Bedside GLUCOSE 189 mg/dL 70-99 BLOOD UREA NITROGEN 12 mg/dL 7-20 CREATININE 1.2 mg/dL 0.8-1.3 HEMOGLOBIN 13.9 gm/dL 14.0-18.0 HEMATOCRIT 41.0 % 40.0-54.0 SODIUM 139 mmol/L 135-148 CHLORIDE 101 mmol/L 98-110 CARBON DIOXIDE 27 mmol/L 21-32 CALCIUM IONIZED 4.7 mg/dL 4.5-5.3 BC REFLEX LACTIC ACID - 01/15/14 12:05 LACTIC ACID 2.8 mmol/L 0.5-2.2 BLOOD CULTURE - 01/15/14 12:05 Microbiology CORTISOL - 01/15/14 12:23 CORTISOL 19.9 mcg/dL BLOOD CULTURE - 01/15/14 12:23 Microbiology GLUCOSE (POC) - 01/15/14 17:03 GLUCOSE (POC) 177 mg/dL 70-99 TROPONIN I - 01/15/14 17:28 TROPONIN I < 0.02 ng/mL < 0.07 PHOSPHORUS - 01/15/14 17:28 PHOSPHORUS 2.2 mg/dL 2.5-4.9 CREATINE KINASE (CK/CPK) - 01/15/14 17:28 CREATINE KINASE (CK/CPK) 220 Units/L < 309 MAGNESIUM - 01/15/14 17:28 MAGNESIUM 1.2 mg/dL 1.8-2.4 C REACTIVE PROTEIN - 01/15/14 17:28 C REACTIVE PROTEIN 80.6 mg/L < 8.0 B-TYPE NATRIURETIC PEPTIDE - 01/15/14 17:28 B-TYPE NATRIURETIC PEPTIDE 64 pg/mL < 100 SED RATE - 01/15/14 17:28 SED RATE 5 mm/hr 0-7 GLUCOSE (POC) - 01/15/14 20:19 GLUCOSE (POC) 182 mg/dL 70-99 CBC W/DIFF - 01/16/14 01:50 COMMENT REVIEWED GRANULOCYTE # 13.2 k/cumm 2.0-9.0 GRANULOCYTE % 96 % 50-75 LYMPHOCYTE # 0.3 k/cumm 1.0-4.0 LYMPHOCYTE % 2 % 20-30 MEAN CELL HGB 29.7 pg 27.0-33.0 MEAN CELL HGB CONCENTRATION 34.7 g/dL 32.0-37.0 MEAN CELL VOLUME 85.6 fl 80.0-100.0 MONOCYTE # 0.2 k/cumm 0.1-1.0 MONOCYTE % 2 % 4-6 RED BLOOD CELL 3.97 m/cumm 4.00-6.00 RED CELL DISTRIBUTION WIDTH 13.8 % 11.0- 15.6 WHITE BLOOD CELL 13.8 k/cumm 5.0-10.0 HEMOGLOBIN 11.8 gm/dL 14.0-18.0 HEMATOCRIT 34.0 % 40.0-54.0 PLATELET COUNT 170 k/cumm 150-400 LACTIC ACID - 01/16/14 01:50 LACTIC ACID 1.3 mmol/L 0.5-2.2 TROPONIN I - 01/16/14 01:50 TROPONIN I < 0.04 ng/mL < 0.07 METABOLIC PANEL, BASIC - 01/16/14 01:50 POTASSIUM 4.1 mmol/L 3.5-5.3 EST GFR (MDRD) 48 mL/min > 59 ANION GAP 8 mmol/L 5-15 EST CrCl (CG) 49 mL/min > 59 GLUCOSE 141 mg/dL 70-99 CALCIUM 7.3 mg/dL 8.5-10.1 BLOOD UREA NITROGEN 19 mg/dL 7-20 CREATININE 1.6 mg/dL 0.8-1.3 SODIUM 138 mmol/L 135-148 CHLORIDE 104 mmol/L 98-110 CARBON DIOXIDE 26 mmol/L 21-32 PHOSPHORUS - 01/16/14 01:50 PHOSPHORUS 3.2 mg/dL 2.5-4.9 MAGNESIUM - 01/16/14 01:50 MAGNESIUM 2.0 mg/dL 1.8-2.4 GLUCOSE (POC) - 01/16/14 05:58 GLUCOSE (POC) 132 mg/dL 70-99 GLUCOSE (POC) - 01/16/14 11:34 GLUCOSE (POC) 176 mg/dL 70-99 UR CREATININE - 01/16/14 12:04 UR CREATININE COMMENT RANDOM UR CREATININE LEVEL 291.4 mg/dL 44-467 UR SODIUM - 01/16/14 12:05 UR SODIUM COMMENT RANDOM UR SODIUM LEVEL 6 mmol/L 20-40 GLUCOSE (POC) - 01/16/14 16:52 GLUCOSE (POC) 154 mg/dL 70-99 GLUCOSE (POC) - 01/16/14 20:54 GLUCOSE (POC) 246 mg/dL 70-99 CBC W/DIFF - 01/17/14 05:18 GRANULOCYTE # 9.5 k/cumm 2.0-9.0 GRANULOCYTE % 91 % 50-75 LYMPHOCYTE # 0.6 k/cumm 1.0-4.0 LYMPHOCYTE % 6 % 20-30 MEAN CELL HGB 29.5 pg 27.0-33.0 MEAN CELL HGB CONCENTRATION 34.6 g/dL 32.0-37.0 MEAN CELL VOLUME 85.1 fl 80.0-100.0 MONOCYTE # 0.3 k/cumm 0.1-1.0 MONOCYTE % 3 % 4-6 RED BLOOD CELL 3.63 m/cumm 4.00-6.00 RED CELL DISTRIBUTION WIDTH 13.6 % 11.0- 15.6 WHITE BLOOD CELL 10.5 k/cumm 5.0-10.0 HEMOGLOBIN 10.7 gm/dL 14.0-18.0 HEMATOCRIT 30.9 % 40.0-54.0 PLATELET COUNT 170 k/cumm 150-400 METABOLIC PANEL, COMPREHN - 01/17/14 05:18 POTASSIUM 4.1 mmol/L 3.5-5.3 EST GFR (MDRD) > 60 mL/min > 59 ANION GAP 4 mmol/L 5-15 EST CrCl (CG) > 60 mL/min > 59 GLUCOSE 137 mg/dL 70-99 CALCIUM 7.8 mg/dL 8.5-10.1 BLOOD UREA NITROGEN 20 mg/dL 7-20 CREATININE 1.1 mg/dL 0.8-1.3 SODIUM 136 mmol/L 135-148 CHLORIDE 105 mmol/L 98-110 AST/SGOT 30 Units/L 10-37 ALT/SGPT 69 Units/L < 66 CARBON DIOXIDE 27 mmol/L 21-32 TOTAL PROTEIN 6.2 gm/dL 6.4-8.2 ALBUMIN 2.7 gm/dL 3.4-5.0 BILI TOTAL 0.7 mg/dL 0.0-1.0 ALKALINE PHOSPHATASE TOTAL 56 IU/L 45- 117 PHOSPHORUS - 01/17/14 05:18 PHOSPHORUS 1.9 mg/dL 2.5-4.9 MAGNESIUM - 01/17/14 05:18 MAGNESIUM 2.3 mg/dL 1.8-2.4 GLUCOSE (POC) - 08/22/14 06:27 GLUCOSE (POC) 148 mg/dL 70-99 GLUCOSE (POC) - 01/17/14 12:38 GLUCOSE (POC) 275 mg/dL 70-99 GLUCOSE (POC) - 01/17/14 16:43 GLUCOSE (POC) 289 mg/dL 70-99 URINALYSIS, ROUTINE - 10/08/14 20:15 UA LEUKOCYTE ESTERASE DIPSTICK TRACE NEGATIVE UA NITRITE DIPSTICK NEGATIVE NEGATIVE UA PROTEIN DIPSTICK NEGATIVE NEGATIVE UA GLUCOSE DIPSTICK NEGATIVE NEGATIVE UA KETONE DIPSTICK NEGATIVE NEGATIVE UA UROBILINOGEN DIPSTICK NORMAL NORMAL UA BILIRUBIN DIPSTICK NEGATIVE NEGATIVE UA BLOOD DIPSTICK NEGATIVE NEGATIVE UA SPECIFIC GRAVITY 1.010 1.015-1.025 UR PH 7.0 5.0-7.0 UA MICROSCOPIC - 10/08/14 20:15 UA AMORPHOUS SEDIMENT 1+ UA RBC 0 rbc/hpf 0 - 3 UA VOLUME FOR EXAM 12.0 mL (12mL STD) UA WBC 0-1 wbc/hpf 0 - 5 CBC W/DIFF - 10/08/14 20:39 BASOPHIL # 0.1 k/cumm 0.0-0.2 BASOPHIL % 1 % 0-1 COMMENT REVIEWED EOSINOPHIL # 0.2 k/cumm 0.1-0.5 EOSINOPHIL % 3 % 2-4 GRANULOCYTE # 5.3 k/cumm 2.0-9.0 GRANULOCYTE % 65 % 50-75 LYMPHOCYTE # 2.0 k/cumm 1.0-4.0 LYMPHOCYTE % 25 % 20-30 MEAN CELL HGB 29.0 pg 27.0-33.0 MEAN CELL HGB CONCENTRATION 36.1 g/dL 32.0-37.0 MEAN CELL VOLUME 80.5 fl 80.0-100.0 MONOCYTE # 0.6 k/cumm 0.1-1.0 MONOCYTE % 7 % 4-6 RED BLOOD CELL 5.17 m/cumm 4.00-6.00 RED CELL DISTRIBUTION WIDTH 13.2 % 11.0- 15.6 WHITE BLOOD CELL 8.2 k/cumm 5.0-10.0 HEMOGLOBIN 15.0 gm/dL 14.0-18.0 HEMATOCRIT 41.6 % 40.0-54.0 PLATELET COUNT 226 k/cumm 150-450 METABOLIC PANEL, COMPREHN - 10/08/14 20:39 POTASSIUM 3.8 mmol/L 3.5-5.3 EST GFR (MDRD) > 60 mL/min > 59 ANION GAP 9 mmol/L 5-15 EST CrCl (CG) > 60 mL/min > 59 GLUCOSE 133 mg/dL 70-99 CALCIUM 9.2 mg/dL 8.5-10.1 BLOOD UREA NITROGEN 10 mg/dL 7-20 CREATININE 1.0 mg/dL 0.8-1.3 SODIUM 138 mmol/L 135-148 CHLORIDE 101 mmol/L 98-110 AST/SGOT 15 Units/L 10-37 ALT/SGPT 31 Units/L < 66 CARBON DIOXIDE 28 mmol/L 21-32 TOTAL PROTEIN 7.7 gm/dL 6.4-8.2 ALBUMIN 3.7 gm/dL 3.4-5.0 BILI TOTAL 1.0 mg/dL 0.0-1.0 ALKALINE PHOSPHATASE TOTAL 75 IU/L 45- 117 AMYLASE - 10/08/14 20:39 AMYLASE 32 Units/L 25-115 LIPASE - 10/08/14 20:39 LIPASE 81 Units/L 73-393 TROPONIN I BEDSIDE - 10/08/14 20:44 METHOD Bedside TROPONIN I < 0.04 ng/mL < 0.11 GLUCOSE (POC) - 11/04/14 11:32 GLUCOSE (POC) 143 mg/dL 70-99 GLUCOSE (POC) - 11/04/14 16:20 GLUCOSE (POC) 239 mg/dL 70-99 GLUCOSE (POC) - 11/04/14 18:11 GLUCOSE (POC) 178 mg/dL 70-99 GLUCOSE (POC) - 11/05/14 07:21 GLUCOSE (POC) 218 mg/dL 70-99 GLUCOSE (POC) - 11/05/14 12:12 GLUCOSE (POC) 233 mg/dL 70-99 CBC - 11/05/14 14:48 MEAN CELL HGB 28.2 pg 27.0-33.0 MEAN CELL HGB CONCENTRATION 33.1 g/dL 32.0-37.0 MEAN CELL VOLUME 85.1 fl 80.0-100.0 RED BLOOD CELL 3.83 m/cumm 4.00-6.00 RED CELL DISTRIBUTION WIDTH 14.1 % 11.0- 15.6 WHITE BLOOD CELL 21.6 k/cumm 5.0-10.0 HEMOGLOBIN 10.8 gm/dL 14.0-18.0 HEMATOCRIT 32.6 % 40.0-54.0 PLATELET COUNT 205 k/cumm 150-400 RENAL FUNCTION PANEL - 11/05/14 14:48 POTASSIUM 6.4 mmol/L 3.5-5.3 EST GFR (MDRD) 25 mL/min > 59 ANION GAP 7 mmol/L 5-15 EST CrCl (CG) 34 mL/min > 59 GLUCOSE 211 mg/dL 70-99 CALCIUM 7.8 mg/dL 8.5-10.1 BLOOD UREA NITROGEN 26 mg/dL 7-20 CREATININE 2.8 mg/dL 0.8-1.3 SODIUM 136 mmol/L 135-148 CHLORIDE 101 mmol/L 98-110 CARBON DIOXIDE 28 mmol/L 21-32 ALBUMIN 3.1 gm/dL 3.4-5.0 PHOSPHORUS 4.5 mg/dL 2.5-4.9 GLUCOSE (POC) - 11/05/14 17:28 GLUCOSE (POC) 178 mg/dL 70-99 GLUCOSE (POC) - 11/05/14 20:50 GLUCOSE (POC) 150 mg/dL 70-99 RENAL FUNCTION PANEL - 11/06/14 01:36 POTASSIUM 4.6 mmol/L 3.5-5.3 EST GFR (MDRD) 39 mL/min > 59 ANION GAP 4 mmol/L 5-15 EST CrCl (CG) 50 mL/min > 59 GLUCOSE 98 mg/dL 70-99 CALCIUM 8.3 mg/dL 8.5-10.1 BLOOD UREA NITROGEN 23 mg/dL 7-20 CREATININE 1.9 mg/dL 0.8-1.3 SODIUM 139 mmol/L 135-148 CHLORIDE 104 mmol/L 98-110 CARBON DIOXIDE 31 mmol/L 21-32 ALBUMIN 3.2 gm/dL 3.4-5.0 PHOSPHORUS 3.1 mg/dL 2.5-4.9 CBC W/DIFF - 11/06/14 05:16 EOSINOPHIL # 0.3 k/cumm 0.1-0.5 EOSINOPHIL % 2 % 2-4 GRANULOCYTE # 11.9 k/cumm 2.0-9.0 GRANULOCYTE % 84 % 50-75 LYMPHOCYTE # 1.3 k/cumm 1.0-4.0 LYMPHOCYTE % 9 % 20-30 MEAN CELL HGB 28.2 pg 27.0-33.0 MEAN CELL HGB CONCENTRATION 32.8 g/dL 32.0-37.0 MEAN CELL VOLUME 86.2 fl 80.0-100.0 MONOCYTE # 0.7 k/cumm 0.1-1.0 MONOCYTE % 5 % 4-6 RED BLOOD CELL 3.33 m/cumm 4.00-6.00 RED CELL DISTRIBUTION WIDTH 14.0 % 11.0- 15.6 WHITE BLOOD CELL 14.1 k/cumm 5.0-10.0 HEMOGLOBIN 9.4 gm/dL 14.0-18.0 HEMATOCRIT 28.7 % 40.0-54.0 PLATELET COUNT 180 k/cumm 150-400 RENAL FUNCTION PANEL - 11/06/14 05:16 POTASSIUM 4.6 mmol/L 3.5-5.3 EST GFR (MDRD) 48 mL/min > 59 ANION GAP 4 mmol/L 5-15 EST CrCl (CG) 60 mL/min > 59 GLUCOSE 150 mg/dL 70-99 CALCIUM 8.1 mg/dL 8.5-10.1 BLOOD UREA NITROGEN 19 mg/dL 7-20 CREATININE 1.6 mg/dL 0.8-1.3 SODIUM 137 mmol/L 135-148 CHLORIDE 105 mmol/L 98-110 CARBON DIOXIDE 28 mmol/L 21-32 ALBUMIN 2.7 gm/dL 3.4-5.0 PHOSPHORUS 2.8 mg/dL 2.5-4.9 GLUCOSE (POC) - 11/06/14 06:21 GLUCOSE (POC) 145 mg/dL 70-99 ARTERIAL BLOOD GAS - 11/06/14 16:55 ABG BASE EXCESS 2.8 meq/L -3.0-3.0 ABG DEVICE NC ABG BICARBONATE 29.1 meq/L 23.0-28.0 ABG L/M 5.0 ABG PCO2 55 mm Hg 34-45 ABG PH 7.35 7.35-7.45 ABG PO2 61 mm Hg 75-100 ABG O2 SATURATION 90 % 93-100 CBC W/DIFF - 11/06/14 17:22 COMMENT REVIEWED EOSINOPHIL # 0.1 k/cumm 0.1-0.5 EOSINOPHIL % 1 % 2-4 GRANULOCYTE # 11.1 k/cumm 2.0-9.0 GRANULOCYTE % 90 % 50-75 LYMPHOCYTE # 0.7 k/cumm 1.0-4.0 LYMPHOCYTE % 6 % 20-30 MEAN CELL HGB 29.1 pg 27.0-33.0 MEAN CELL HGB CONCENTRATION 33.2 g/dL 32.0-37.0 MEAN CELL VOLUME 87.7 fl 80.0-100.0 MONOCYTE # 0.5 k/cumm 0.1-1.0 MONOCYTE % 4 % 4-6 RED BLOOD CELL 2.92 m/cumm 4.00-6.00 RED CELL DISTRIBUTION WIDTH 14.2 % 11.0- 15.6 WHITE BLOOD CELL 12.4 k/cumm 5.0-10.0 HEMOGLOBIN 8.5 gm/dL 14.0-18.0 HEMATOCRIT 25.6 % 40.0-54.0 PLATELET COUNT 174 k/cumm 150-400 CHEM/HEM PROFILE-BEDSIDE - 11/06/14 17:29 POTASSIUM 4.8 mmol/L 3.5-5.3 METHOD Bedside ANION GAP 13 mmol/L 10-20 METHOD Bedside GLUCOSE 121 mg/dL 70-99 BLOOD UREA NITROGEN 15 mg/dL 7-20 CREATININE 1.1 mg/dL 0.8-1.3 HEMOGLOBIN 8.2 gm/dL 14.0-18.0 HEMATOCRIT 24.0 % 40.0-54.0 SODIUM 136 mmol/L 135-148 CHLORIDE 103 mmol/L 98-110 CARBON DIOXIDE 25 mmol/L 21-32 CALCIUM IONIZED 4.7 mg/dL 4.5-5.3 GLUCOSE (POC) - 11/06/14 23:02 GLUCOSE (POC) 159 mg/dL 70-99 ARTERIAL BLOOD GAS - 11/07/14 06:00 ABG BASE EXCESS 2.3 meq/L -3.0-3.0 ABG DEVICE HFNC ABG BICARBONATE 27.5 meq/L 23.0-28.0 ABG L/M 4.0 ABG PCO2 47 mm Hg 34-45 ABG PH 7.38 7.35-7.45 ABG PO2 62 mm Hg 75-100 ABG O2 SATURATION 93 % 93-100 CBC W/DIFF - 11/07/14 06:00 EOSINOPHIL # 0.3 k/cumm 0.1-0.5 EOSINOPHIL % 4 % 2-4 GRANULOCYTE # 5.9 k/cumm 2.0-9.0 GRANULOCYTE % 75 % 50-75 LYMPHOCYTE # 1.2 k/cumm 1.0-4.0 LYMPHOCYTE % 16 % 20-30 MEAN CELL HGB 29.0 pg 27.0-33.0 MEAN CELL HGB CONCENTRATION 33.1 g/dL 32.0-37.0 MEAN CELL VOLUME 87.6 fl 80.0-100.0 MONOCYTE # 0.4 k/cumm 0.1-1.0 MONOCYTE % 6 % 4-6 RED BLOOD CELL 2.83 m/cumm 4.00-6.00 RED CELL DISTRIBUTION WIDTH 14.4 % 11.0- 15.6 WHITE BLOOD CELL 7.8 k/cumm 5.0-10.0 HEMOGLOBIN 8.2 gm/dL 14.0-18.0 HEMATOCRIT 24.8 % 40.0-54.0 PLATELET COUNT 183 k/cumm 150-400 RENAL FUNCTION PANEL - 11/07/14 06:00 POTASSIUM 4.4 mmol/L 3.5-5.3 EST GFR (MDRD) > 60 mL/min > 59 ANION GAP 5 mmol/L 5-15 EST CrCl (CG) > 60 mL/min > 59 GLUCOSE 162 mg/dL 70-99 CALCIUM 8.0 mg/dL 8.5-10.1 BLOOD UREA NITROGEN 13 mg/dL 7-20 CREATININE 1.0 mg/dL 0.8-1.3 SODIUM 139 mmol/L 135-148 CHLORIDE 106 mmol/L 98-110 CARBON DIOXIDE 28 mmol/L 21-32 ALBUMIN 2.3 gm/dL 3.4-5.0 PHOSPHORUS 1.8 mg/dL 2.5-4.9 MAGNESIUM - 11/07/14 06:00 MAGNESIUM 2.0 mg/dL 1.8-2.4 GLUCOSE (POC) - 11/07/14 08:59 GLUCOSE (POC) 172 mg/dL 70-99 GLUCOSE (POC) - 11/07/14 13:07 GLUCOSE (POC) 143 mg/dL 70-99 GLUCOSE (POC) - 05/25/16 01:12 GLUCOSE (POC) 207 mg/dL 70-99 URINALYSIS, ROUTINE - 05/25/16 01:28 UA LEUKOCYTE ESTERASE DIPSTICK TRACE NEGATIVE UA NITRITE DIPSTICK NEGATIVE NEGATIVE UA PROTEIN DIPSTICK 1+ NEGATIVE UA GLUCOSE DIPSTICK NEGATIVE NEGATIVE UA KETONE DIPSTICK TRACE NEGATIVE UA UROBILINOGEN DIPSTICK NORMAL NORMAL UA BILIRUBIN DIPSTICK NEGATIVE NEGATIVE UA BLOOD DIPSTICK NEGATIVE NEGATIVE UA SPECIFIC GRAVITY 1.010 1.015-1.025 UR PH 8.0 5.0-7.0 UA MICROSCOPIC - 05/25/16 01:28 UA BACTERIA 1+ NEGATIVE UA MUCUS 2+ NEG TO 1+ UA VOLUME FOR EXAM 12.0 mL (12mL STD) UA WBC 5-10 wbc/hpf 0 - 5 METABOLIC PANEL, COMPREHN - 05/25/16 01:28 POTASSIUM 3.9 mmol/L 3.5-5.3 EST GFR (MDRD) 57 mL/min > 59 ANION GAP 9 mmol/L 5-15 EST CrCl (CG) > 60 mL/min > 59 GLUCOSE 194 mg/dL 70-99 CALCIUM 9.3 mg/dL 8.5-10.1 BLOOD UREA NITROGEN 10 mg/dL 7-20 CREATININE 1.3 mg/dL 0.7-1.3 SODIUM 136 mmol/L 135-148 CHLORIDE 99 mmol/L 98-110 AST/SGOT 28 Units/L 10-37 ALT/SGPT 48 Units/L < 66 CARBON DIOXIDE 28 mmol/L 21-32 TOTAL PROTEIN 8.1 gm/dL 6.4-8.2 ALBUMIN 4.3 gm/dL 3.4-5.0 BILI TOTAL 1.4 mg/dL 0.0-1.0 ALKALINE PHOSPHATASE TOTAL 73 IU/L 45- 117 LIPASE - 05/25/16 01:28 LIPASE 118 Units/L 73-393 CBC W/DIFF - 05/25/16 01:28 BASOPHIL # 0.1 k/cumm 0.0-0.2 BASOPHIL % 1 % 0-1 EOSINOPHIL # 0.4 k/cumm 0.1-0.5 EOSINOPHIL % 4 % 2-4 GRANULOCYTE # 6.9 k/cumm 2.0-9.0 GRANULOCYTE % 66 % 50-75 LYMPHOCYTE # 2.4 k/cumm 1.0-4.0 LYMPHOCYTE % 23 % 20-30 MEAN CELL HGB 29.5 pg 27.0-33.0 MEAN CELL HGB CONCENTRATION 36.9 g/dL 32.0-37.0 MEAN CELL VOLUME 80.1 fl 80.0-100.0 MONOCYTE # 0.7 k/cumm 0.1-1.0 MONOCYTE % 7 % 4-6 RED BLOOD CELL 5.99 m/cumm 4.00-6.00 RED CELL DISTRIBUTION WIDTH 13.6 % 11.0- 15.6 WHITE BLOOD CELL 10.4 k/cumm 5.0-10.0 HEMOGLOBIN 17.7 gm/dL 14.0-18.0 HEMATOCRIT 48.0 % 40.0-54.0 PLATELET COUNT 325 k/cumm 150-450 METABOLIC PANEL, COMPREHN - 07/30/16 14:31 POTASSIUM 3.4 mmol/L 3.5-5.3 EST GFR (MDRD) > 60 mL/min > 59 ANION GAP 11 mmol/L 5-15 EST CrCl (CG) > 60 mL/min > 59 GLUCOSE 107 mg/dL 70-99 CALCIUM 9.5 mg/dL 8.5-10.1 BLOOD UREA NITROGEN 15 mg/dL 7-20 CREATININE 1.2 mg/dL 0.7-1.3 SODIUM 142 mmol/L 135-148 CHLORIDE 102 mmol/L 98-110 AST/SGOT 21 Units/L 10-37 ALT/SGPT 51 Units/L < 66 CARBON DIOXIDE 29 mmol/L 21-32 TOTAL PROTEIN 7.7 gm/dL 6.4-8.2 ALBUMIN 4.0 gm/dL 3.4-5.0 BILI TOTAL 0.7 mg/dL 0.0-1.0 ALKALINE PHOSPHATASE TOTAL 78 IU/L 45- 117 LIPASE - 07/30/16 14:31 LIPASE 137 Units/L 73-393 CBC W/DIFF - 07/30/16 14:31 BASOPHIL # 0.1 k/cumm 0.0-0.2 BASOPHIL % 1 % 0-1 COMMENT REVIEWED EOSINOPHIL # 0.2 k/cumm 0.1-0.5 EOSINOPHIL % 2 % 2-4 GRANULOCYTE # 9.8 k/cumm 2.0-9.0 GRANULOCYTE % 77 % 50-75 LYMPHOCYTE # 2.2 k/cumm 1.0-4.0 LYMPHOCYTE % 17 % 20-30 MEAN CELL HGB 30.1 pg 27.0-33.0 MEAN CELL HGB CONCENTRATION 37.3 g/dL 32.0-37.0 MEAN CELL VOLUME 80.7 fl 80.0-100.0 MONOCYTE # 0.5 k/cumm 0.1-1.0 MONOCYTE % 4 % 4-6 RED BLOOD CELL 5.69 m/cumm 4.00-6.00 RED CELL DISTRIBUTION WIDTH 13.5 % 11.0- 15.6 WHITE BLOOD CELL 12.7 k/cumm 5.0-10.0 HEMOGLOBIN 17.1 gm/dL 14.0-18.0 HEMATOCRIT 45.9 % 40.0-54.0 PLATELET COUNT 275 k/cumm 150-450 TROPONIN I BEDSIDE - 07/30/16 14:37 METHOD Bedside TROPONIN I < 0.04 ng/mL < 0.11 PROTHROMBIN TIME WITH INR - 08/03/16 16:15 INTERNATIONAL NORMAL RATIO 1.0 0.9-1.1 PROTHROMBIN TIME 11.3 sec 10.0-12.9 CBC W/DIFF - 08/03/16 16:15 BASOPHIL # 0.1 k/cumm 0.0-0.2 BASOPHIL % 1 % 0-1 COMMENT REVIEWED EOSINOPHIL # 0.4 k/cumm 0.1-0.5 EOSINOPHIL % 5 % 2-4 GRANULOCYTE # 4.7 k/cumm 2.0-9.0 GRANULOCYTE % 59 % 50-75 LYMPHOCYTE # 2.1 k/cumm 1.0-4.0 LYMPHOCYTE % 27 % 20-30 MEAN CELL HGB 30.1 pg 27.0-33.0 MEAN CELL HGB CONCENTRATION 37.1 g/dL 32.0-37.0 MEAN CELL VOLUME 81.0 fl 80.0-100.0 MONOCYTE # 0.6 k/cumm 0.1-1.0 MONOCYTE % 8 % 4-6 POLYCHROMASIA NOTED RED BLOOD CELL 5.22 m/cumm 4.00-6.00 RED CELL DISTRIBUTION WIDTH 13.4 % 11.0- 15.6 WHITE BLOOD CELL 7.8 k/cumm 5.0-10.0 HEMOGLOBIN 15.7 gm/dL 14.0-18.0 HEMATOCRIT 42.3 % 40.0-54.0 PLATELET COUNT 294 k/cumm 150-450 METABOLIC PANEL, [facility] - 08/03/16 16:15 POTASSIUM 3.9 mmol/L 3.5-5.3 EST GFR (MDRD) > 60 mL/min > 59 ANION GAP 10 mmol/L 5-15 EST CrCl (CG) > 60 mL/min > 59 GLUCOSE 353 mg/dL 70-99 CALCIUM 8.6 mg/dL 8.5-10.1 BLOOD UREA NITROGEN 12 mg/dL 7-20 CREATININE 1.1 mg/dL 0.7-1.3 SODIUM 135 mmol/L 135-148 CHLORIDE 97 mmol/L 98-110 AST/SGOT 18 Units/L 10-37 ALT/SGPT 37 Units/L < 66 CARBON DIOXIDE 28 mmol/L 21-32 TOTAL PROTEIN 7.2 gm/dL 6.4-8.2 ALBUMIN 3.7 gm/dL 3.4-5.0 BILI TOTAL 0.5 mg/dL 0.0-1.0 ALKALINE PHOSPHATASE TOTAL 97 IU/L 45- 117 Encounters ACCT No. Visit Date/Time Discharge Status Pt. Type Provider Facility Loc./Unit Complaint [id number] 02/27/2013 17:36:00 2012 19:25:00 DIS Emergency Priti Eagle MD, Kan Galicia [facility] TERM [id number] 07/04/2012 09:39:00 2012 12:48:00 DIS Emergency Rashad RODRIGUEZ, Nando [facility]
--- OUTSIDE RECORDS SUMMARY | 2016-08-26 06:02 | XMS REPORT ---
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 Inactive Problem Fibromyalgia 729.1 Active Problem Restless legs syndrome [RLS] 333.94 Active Medications Medication Code System Code Instructions Start Date End Date Status Dosage NovoLog [facility] [address]-13 100 UNIT/ML Subcutaneous TID with meals December 23, 2013 24 units Pantoprazole Sodium [facility] [address]-38 40 MG Oral 1 (one) every morning December 23, 2013 1 tablet Testosterone Cypionate [facility] [address]-72 200 MG/ML Intramuscular every 2 weeks 200 mg Tramadol HCl [facility] [address]-43 50 MG Oral every six hours, as needed 1 OneTouch Ultra Blue NDC 0 1 In Vitro 4 times daily Jul 15, 2013 as directed OneTouch Delica Lancets NDC 0 1 Misc four times daily Jun 04, 2012 not defined Oxycodone HCl [facility] [address]-61 5 MG Oral 1 tab up to 5x a day pain mgt. Cabergoline [facility] 49343365026 0.5 MG Orally once a week 1 tablet Metoprolol Succinate ER [facility] [address]-85 100 MG Oral 1 tab daily May 28, 2013 1 tablet Amlodipine Besylate [facility] [address]-48 10 MG Orally Once a day May 27, 2013 1 tablet Irbesartan [facility] 47971059581 300 MG Orally Once a day 1 tablet BD Insulin Syringe [facility] 84340844574 30G X 1/2 intramuscular 1 (one) four times daily as directed Amitriptyline HCl [facility] [address]-30 25 MG Orally at bedtime October 22, 2013 1-2 tablets Lantus [facility] [address]-37 100 UNIT/ML Subcutaneous daily at bedtime 2am 70 units Levothyroxine Sodium [facility] 61105559382 100 Orally 1 (one) daily 1 tablet Procedures Procedure Coding System Code Date INJ TESTOSTERONE CYPIONATE 1 MG CPT-4 J1071 December 23, 2015 THER/PROPH/DIAG INJ, SC/IM CPT-4 65634 December 23, 2015 Testosterone Cypionate (Depo-Testosterone) CPT-4 J1071 December 23, 2015 Billed by outside source CPT-4 NOBLL December 23, 2015 Results Name Result Date Reference Range Unit Abnormality Flag COMPREHENSIVE METABOLIC PANEL (CMP) 59168 ----ALBUMIN/GLOBULIN RATIO 1.8 20151223 1.0-2.5 (calc) N ----GLOBULIN 2.5 20151223 1.9-3.7 g/dL (calc) N ----ALKALINE PHOSPHATASE 58 20151223 40-115 U/L N ----BILIRUBIN, TOTAL 0.8 20151223 0.2-1.2 mg/dL N ----CHLORIDE 99 20151223 98-110 mmol/L N ----ALT 20 20151223 9-46 U/L N ----POTASSIUM 4.2 [id number] 3.5-5.3 mmol/L N ----AST 15 20151223 10-35 U/L N ----SODIUM 139 20151223 135-146 mmol/L N ----BUN/CREATININE RATIO 10 20151223 6-22 (calc) N ----eGFR 67 20151223 > OR=60 mL/min/1.73m2 N ----CALCIUM 10.4 20151223 8.6-10.3 mg/dL H ----CARBON DIOXIDE 31 20151223 19-30 mmol/L H ----ALBUMIN 4.5 20151223 3.6-5.1 g/dL N ----PROTEIN, TOTAL 7.0 20151223 6.1-8.1 g/dL N ----GLUCOSE 72 20151223 65-99 mg/dL N ----UREA NITROGEN (BUN) 14 20151223 7-25 mg/dL N ----CREATININE 1.37 20151223 0.70-1.33 mg/dL H ----eGFR NON-AFR. MEXICAN 58 20151223 > OR=60 mL/min/1.73m2 L Summary Purpose eClinicalWorks Submission
--- OUTSIDE RECORDS SUMMARY | 2016-08-26 06:02 | XMS REPORT ---
Author Author Pineda Kevin [facility] Address [address] [id number] Care Team Providers Care Clinical Trial Specialist Name Role Phone Dorita Pineda Unavailable [phone] PROBLEMS Type Condition ICD9-CM Code [id number] Code Onset Dates Condition Status SNOMED Code Problem Diabetes type 2, uncontrolled E11.65 Active 398587766 Problem Gastro-esophageal reflux disease without esophagitis K21.9 Active 835120253 Problem Essential (primary) hypertension I10 Active 42221696 Problem Hypogonadism in male E29.1 Active 03069907 Problem 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 Active 537705545 Problem Testicular hypofunction E29.1 Active 845510054 Problem Secondary adrenal insufficiency E27.49 Active 52637653 Problem Dorsalgia, unspecified M54.9 Active 318500357 Problem Uncontrolled diabetes mellitus type 2 without complications, unspecified detention insulin use status E11.65 Active 621409204 Problem Secondary hypothyroidism E03.8 Active 19834797 Problem Hypertension 401.9 Active 31405375 Problem alf (current) use of opiate analgesic V58.69 Inactive 252346754 Problem Fibromyalgia 729.1 Active 44620013 Problem Sleep apnea 780.57 Active 31883889 Problem 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 65313679 Problem 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 53713970 Problem Restless legs syndrome [RLS] 333.94 Active 50599186 Problem Diabetes type 2, controlled E11.9 Active 67131285 Problem Hypercalcemia 275.42 Active 24299281 Problem Chronic pain syndrome G89.4 Active 502881254 ALLERGIES Unknown Allergies SOCIAL HISTORY No smoking Hx information available PLAN OF CARE VITAL SIGNS MEDICATIONS Medication Instructions Dosage Frequency Start Date End Date Duration Status Cabergoline 0.5 MG Orally once a week 1 tablet 30 Active Lantus 100 Subcutaneous daily at bedtime 70 units 28 Active Levothyroxine Sodium 100 TAKE 1 TABLET BY MOUTH EVERY DAY 90 Active NovoLog 100 UNIT/ML Subcutaneous TID with meals 2 units Active BD Insulin Syringe 0 intramuscular 1 (one) four times daily as directed 30 Active Amlodipine Besylate 10 MG Orally Once a day 1 tablet 24h Apr, 90 days Active Metoprolol Succinate ER 100 MG Oral 1 tab daily 1 tablet Apr, 90 days Active Humalog 100 UNIT/ML Subcutaneous three times daily with meals 32 units 30 days Active Oxycodone HCl 5 MG Oral 1 tab up to 5x a day pain mgt. 0 Active OneTouch Delica Lancets May, 30 Active Testosterone Cypionate 200 MG/ML Intramuscular every 2 weeks 200 mg Active Irbesartan 300 MG Orally Once a day 1 tablet 24h 90 Active Pantoprazole Sodium 40 MG Oral 1 (one) every morning 1 tablet Nov, 90 days Active Amitriptyline HCl 25 MG Orally at bedtime 1-2 tablets September, 30 days Active OneTouch Ultra Blue 1 In Vitro 4 times daily as directed Jun, 30 days Active Tramadol HCl 50 MG Oral every six hours, as needed 1 Active RESULTS No Results PROCEDURES No Known procedures IMMUNIZATIONS No Known Immunizations
--- OUTSIDE RECORDS SUMMARY | 2016-08-26 06:02 | XMS REPORT ---
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 Jul, Active 959348887 Problem Uncontrolled diabetes mellitus type 2 without complications, unspecified senior living insulin use status E11.65 Active 239434995 Problem Dorsalgia, unspecified M54.9 Active 629329533 Problem Gastro-esophageal reflux disease without esophagitis K21.9 Active 376152803 Problem Secondary hypothyroidism E03.8 Active 98551579 Problem Secondary adrenal insufficiency E27.49 Active 79141401 Problem Sleep apnea 780.57 Active 91630690 Problem Hypertension 401.9 Active 61411147 Problem 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 Active 785620106 Problem Fibromyalgia 729.1 Active 50648193 Problem Hypercalcemia 275.42 Active 07351141 Problem 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 01466659 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 0 Active Lantus 100 Subcutaneous daily at bedtime 70 units 28 Active Testosterone Cypionate 200 MG/ML Intramuscular every 2 weeks 200 mg Active NovoLog 100 UNIT/ML Subcutaneous TID with meals 2 units Active Pantoprazole Sodium 40 MG Oral 1 (one) every morning 1 tablet Nov, 90 days Active OneTouch Delica Lancets May, 30 Active Amlodipine Besylate 10 MG Orally Once a day 1 tablet 24h Apr, 90 days Active Metoprolol Succinate ER 100 MG Oral 1 tab daily 1 tablet Apr, 90 days Active Amitriptyline HCl 25 MG Orally at bedtime 1-2 tablets September, 30 days Active Humalog 100 UNIT/ML Subcutaneous three times daily with meals 32 units 30 days Active Levothyroxine Sodium 100 TAKE 1 TABLET BY MOUTH EVERY DAY 90 Active Cabergoline 0.5 MG Orally once a week 1 tablet 30 Active Irbesartan 300 MG Orally Once a day 1 tablet 24h 90 Active OneTouch Ultra Blue 1 In Vitro 4 times daily as directed Jun, 30 days Active RESULTS No Results PROCEDURES Procedure Date Ordered Related Diagnosis Body Site Testosterone Cypionate (Depo-Testosterone) July 29, 2016 THER/PROPH/DIAG INJ, SC/IM July 29, 2016 IMMUNIZATIONS Vaccine Route Administration Date Status Testosterone Cypionate (Depo-Testosterone) IM Intramuscular July 29, 2016 Administered
--- OUTSIDE RECORDS SUMMARY | 2016-08-26 06:02 | XMS REPORT ---
Author Author Pineda Kevin [facility] Address [address] [id number] Care Team Providers Care Drill Press Operator For Metal Name Role Phone Dorita Pineda Unavailable [phone] PROBLEMS Type Condition ICD9-CM Code [id number] Code Onset Dates Condition Status SNOMED Code Problem Diabetes type 2, uncontrolled E11.65 Active 095476366 Problem Gastro-esophageal reflux disease without esophagitis K21.9 Active 723901998 Problem Essential (primary) hypertension I10 Active 50983497 Problem Hypogonadism in male E29.1 Active 84939254 Problem 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 Active 327527693 Problem Testicular hypofunction E29.1 Active 464146996 Problem Secondary adrenal insufficiency E27.49 Active 06280955 Problem Dorsalgia, unspecified M54.9 Active 091680061 Problem Uncontrolled diabetes mellitus type 2 without complications, unspecified residential insulin use status E11.65 Active 615515852 Problem Secondary hypothyroidism E03.8 Active 51983358 Problem Hypertension 401.9 Active 58743100 Problem [facility] (current) use of opiate analgesic V58.69 Inactive 112158751 Problem Fibromyalgia 729.1 Active 88256587 Problem Sleep apnea 780.57 Active 77192843 Problem 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
--- OUTSIDE RECORDS SUMMARY | 2016-08-26 06:02 | XMS REPORT ---
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 V58.69 Inactive Problem Fibromyalgia 729.1 Active Problem Restless legs syndrome [RLS] 333.94 Active Medications Medication Code System Code Instructions Start Date End Date Status Dosage OneTouch Delica Lancets NDC 0 1 Misc four times daily Jun 04, 2012 not defined Irbesartan [facility] 06921598697 300 MG Orally Once a day 1 tablet Amitriptyline HCl [facility] [address]-20 25 MG Orally at bedtime October 22, 2013 1-2 tablets OneTouch Ultra Blue NDC 0 1 In Vitro 4 times daily Jul 15, 2013 as directed Levothyroxine Sodium [facility] 56068825854 100 Orally 1 (one) daily 1 tablet NovoLog [facility] [address]-76 100 UNIT/ML Subcutaneous TID with meals December 23, 2013 24 units Lantus [facility] [address]-32 100 UNIT/ML Subcutaneous daily at bedtime 2am 70 units BD Insulin Syringe [facility] 59019916664 30G X 1/2 intramuscular 1 (one) four times daily as directed Metoprolol Succinate ER [facility] [address]-93 100 MG Oral 1 tab daily May 28, 2013 1 tablet Pantoprazole Sodium [facility] [address]-13 40 MG Oral 1 (one) every morning December 23, 2013 1 tablet Tramadol HCl [facility] [address]-81 50 MG Oral every six hours, as needed 1 Amlodipine Besylate [facility] [address]-22 10 MG Orally Once a day May 27, 2013 1 tablet Cabergoline [facility] 72427728895 0.5 MG Orally once a week 1 tablet Oxycodone HCl [facility] [address]-56 5 MG Oral 1 tab up to 5x a day pain mgt. Testosterone Cypionate [facility] [address]-86 200 MG/ML Intramuscular every 2 weeks 200 mg Procedures Procedure Coding System Code Date THER/PROPH/DIAG INJ, SC/IM CPT-4 26014 December 03, 2015 Testosterone Cypionate (Depo-Testosterone) CPT-4 J1071 December 03, 2015 Results No Known Results Summary Purpose eClinicalWorks Submission
--- OUTSIDE RECORDS SUMMARY | 2016-08-26 06:02 | XMS REPORT ---
Author Author Pineda Kevin Organization [employer] Address Unknown Phone Unavailable Care Team Providers Care Equipment Service Technician Name Role Phone Pineda Kevin CP [...] Restless legs syndrome [RLS] 333.94 Active Problem half-way (current) use of opiate analgesic V58.69 Inactive Medications Medication Code System Code Instructions Start Date End Date Status Dosage Pantoprazole Sodium [facility] [address]-59 40 MG Oral 1 (one) every morning December 23, 2013 1 tablet BD Insulin Syringe NDC 0 30G X 1/2 intramuscular 1 (one) four times daily May 02, 2013 as directed OneTouch Ultra Blue NDC 0 In Vitro 2 (two) daily Jul 15, 2013 not defined Cortisone Acetate [facility] [address]-21 25 MG Oral 1 (one) two times daily December 23, 2013 not defined OneTouch Delica Lancets NDC 0 1 Misc four times daily Jun 04, 2012 not defined Metoprolol Succinate ER [facility] [address]-63 100 MG Oral 1 tab daily May 28, 2013 1 [place] [address]-98 100 UNIT/ML Subcutaneous 32 with meals December 23, 2013 Per Pineda Kevin PA-C supervised [place] [address]-07 100 UNIT/ML Subcutaneous 70 at bedtime December 23, 2013 Per Pineda Kevin PA-C supervised under [place] [address]-08 200 MG/ML Intramuscular every 2 weeks 1 ml Irbesartan [facility] [address]-56 300 MG Oral 1 (one) Tablet daily August 30, 2013 to replace Diovan due to non insurance payment Cabergoline [facility] [address]-51 0.5 MG Orally three times a week Mar 28, 2014 1 tablet Diazepam [facility] [address]-51 2 MG Oral 1 as needed Limit 2 tabs Q24H Levothyroxine Sodium [facility] [address]-57 100 MCG Oral 1 (one) daily Jul 01, 2013 Per Pineda Kevin PA-C supervised under Bertin Crump Amitriptyline HCl [facility] [address]-39 25 MG Orally at bedtime October 22, 2013 1-2 tablets Amlodipine Besylate [facility] [address]-11 10 MG Orally Once a day May 27, 2013 1 tablet Oxycodone HCl [facility] [address]-25 5 MG Oral 1 tab up to 5x a day pain mgt. Procedures Procedure Coding System Code Date INJ TESTOSTERONE CYPIONATE 1 MG CPT-4 J1071 Jul 11, 2014 THER/PROPH/DIAG INJ, SC/IM CPT-4 85751 Jul 11, 2014 Results No Known Results Summary Purpose eClinicalWorks Submission
--- OUTSIDE RECORDS SUMMARY | 2016-08-26 06:02 | XMS REPORT ---
Author Author Ilene Nava [facility] eClinicalWorks Address Unknown Phone Unavailable Care Team Providers Care Client Support Coordinator Name Role Phone Ilene Nava CP Unavailable Allergies No Known Allergies Problems Problem Type Condition ICD-9 Code Onset Dates Condition Status 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 Problem Allergic purpura 287.0 Active Problem Nonspecific elevation of levels of transaminase or lactic acid dehydrogenase (LDH) 790.4 Active Problem Restless legs syndrome [RLS] 333.94 Active Assessment Chronic pain syndrome 338.4 Active Problem Unspecified hypothyroidism 244.9 Active Problem [...]
--- OUTSIDE RECORDS SUMMARY | 2016-08-26 06:02 | XMS REPORT ---
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
--- OUTSIDE RECORDS SUMMARY | 2016-08-26 06:02 | XMS REPORT ---
Author Author Ilene Nava [facility] eClinicalWorks Address Unknown Phone Unavailable Care Team Providers Care Shuttle Veneering Supervisor Name Role Phone Ilene Nava CP Unavailable [...]
--- OUTSIDE RECORDS SUMMARY | 2016-08-26 06:02 | XMS REPORT ---
Author Author Pineda Kevin [facility] eClinicalWorks Address Unknown Phone Unavailable Care Team Providers Care Janitorial Account Manager Name Role Phone Pineda Kevin CP Unavailable Allergies No Known Allergies Problems Problem Type Condition Code Onset Dates Condition Status Problem half-way (current) use of opiate analgesic [...] Start Date End Date Status Dosage Cabergoline [facility] [address]-76 0.5 MG Orally three times a week Mar 28, 2014 1 tablet Diazepam [facility] [address]-27 2 MG Oral 1 as needed Limit 2 tabs Q24H BD Insulin Syringe NDC 0 30G X 1/2 intramuscular 1 (one) four times daily May 02, 2013 as directed OneTouch Delica Lancets NDC 0 1 Misc four times daily Jun 04, 2012 not defined Levothyroxine Sodium [facility] [address]-38 100 MCG Orally 1 (one) daily Jun 1 [place] [address]-90 25 MG Oral 1 (one) two times daily December 23, 2013 not defined Pantoprazole Sodium [facility] [address]-61 40 MG Oral 1 (one) every morning December 23, 2013 1 tablet Metoprolol Succinate ER [facility] [address]-96 100 MG Oral 1 tab daily May 28, 2013 1 tablet OneTouch Ultra Blue ND 0 In Vitro 2 (two) daily Jul 15, 2013 not defined Oxycodone HCl [facility] [address]-02 5 MG Oral 1 tab up to 5x a day pain mgt. Amitriptyline HCl [facility] [address]-40 25 MG Orally at bedtime October 22, 2013 1-2 tablets NovoLog [facility] [address]-40 100 UNIT/ML Subcutaneous 32 with meals December 23, 2013 Per Pineda Kevni PA-C supervised under Bertin Crump. Amlodipine Besylate [facility] [address]-88 10 MG Orally Once a day May 27, 2013 1 tablet Testosterone Cypionate [facility] [address]-68 200 MG/ML Intramuscular 1 ml Irbesartan [facility] [address]-92 300 MG Orally Once a day August 30, 2013 1 tablet Lantus [facility] [address]-67 100 UNIT/ML Subcutaneous 70 at bedtime December 23, 2013 Per Pineda Kevin PA-C supervised under Bertin Crump Procedures Procedure Coding System Code Date INJ TESTOSTERONE CYPIONATE 1 MG CPT-4 J1071 September 09, 2014 THER/PROPH/DIAG INJ, SC/IM CPT-4 63995 September 09, 2014 Results No Known Results Summary Purpose eClinicalWorks Submission
--- OUTSIDE RECORDS SUMMARY | 2016-08-26 06:02 | XMS REPORT ---
Author Author Pineda Kevin Organization eClinicalWorks Address Unknown Phone Unavailable Care Team Providers Care Tester Electronic Scale Name Role Phone Pineda Kevin CP Unavailable [...] Restless legs syndrome [RLS] 333.94 Active Problem detention (current) use of opiate analgesic V58.69 Inactive Medications Medication Code System Code Instructions Start Date End Date Status Dosage Cortisone Acetate [facility] [address]-12 25 MG Oral 1 (one) two times daily December 23, 2013 not defined Metoprolol Succinate ER [facility] [address]-37 100 MG Oral 1 tab daily May 28, 2013 not defined Diazepam [facility] [address]-16 2 MG Oral 1 as needed Limit 2 tabs Q24H Amitriptyline HCl [facility] [address]-66 25 MG Oral 1-2 at bedtime October 22, 2013 rx correction, please disregard previous rxPT REQUESTED THE 25MG TABLETS Irbesartan [facility] [address]-70 300 MG Oral 1 (one) Tablet daily August 30, 2013 to replace Diovan due to non insurance payment OneTouch Ultra Blue NDC 0 In Vitro 2 (two) daily Jul 15, 2013 not defined Levothyroxine Sodium [facility] [address]-28 100 MCG Oral 1 (one) daily Jul 01, 2013 Per Pineda Kevin PA-C supervised under Bertin Crump Cabergoline [facility] [address]-28 0.5 MG Orally three times a week Mar 28, 2014 1 tablet Lantus [facility] [address]-46 100 UNIT/ML Subcutaneous 70 at bedtime December 23, 2013 Per Pineda Kevin PA-C supervised under Bertin Crump NovoLog [facility] [address]-10 100 UNIT/ML Subcutaneous 32 with meals December 23, 2013 Per Pineda Kevin PA-C supervised under Bertin Crump. OneTouch Delica Lancets NDC 0 1 Misc four times daily Jun 04, 2012 not defined Pantoprazole Sodium [facility] [address]-98 40 MG Oral 1 (one) every morning December 23, 2013 1 tablet Amlodipine Besylate [facility] [address]-91 10 MG Oral 1 (one) Tablet daily May 27, 2013 not defined Oxycodone HCl [facility] [address]-60 5 MG Oral 1 tab up to 5x a day pain mgt. BD Insulin Syringe NDC 0 30G X 1/2" 05 ML 1 (one) four times daily Apr Per Pineda Kevin PA-C supervised under Bertin Crump Procedures Procedure Coding System Code Date THER/PROPH/DIAG INJ, SC/IM CPT-4 08161 Apr 21, 2014 INJ TESTO CYPIONATE 1 CC 200 MG CPT-4 J1080 Apr 21, 2014 Results No Known Results Summary Purpose eClinicalWorks Submission
--- OUTSIDE RECORDS SUMMARY | 2016-08-26 06:02 | XMS REPORT ---
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
--- OUTSIDE RECORDS SUMMARY | 2016-08-26 06:02 | XMS REPORT ---
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 Problem Allergic purpura 287.0 Active Problem Nonspecific elevation of levels of transaminase or lactic acid dehydrogenase (LDH) 790.4 Active Problem Restless legs syndrome [RLS] 333.94 Active Assessment Acute sinusitis, unspecified 461.9 Active Problem Unspecified hypothyroidism 244.9 Active Assessment Chronic pain syndrome 338.4 Active Assessment Restless legs syndrome [RLS] 333.94 Active Problem Acute sinusitis, unspecified 461.9 Active [...] Instructions Start Date End Date Status Dosage Calcipotriene [facility] [address]-27 0.005 % Externally prn Active 1 application to affected area Cabergoline [facility] [address]-03 0.5 MG Orally 3 times weekly Active 1 tab NovoLog [facility] [address]-43 100 ml SQ TID Active 32 units Levothyroxine Sodium [facility] [address]-13 .100 mcg Orally Once a day Active 1 tablet every morning on an empty stomach Pantoprazole Sodium [facility] [address]-65 40 MG Orally Once a day Apr 04, 2012 Active 1 tablet Diovan [facility] [address]-10 320 MG Orally Once a day Mar 29, 2010 Active 1 tablet Metoprolol Succinate [facility] [address]-60 100 MG Orally Once a day Active 1 tablet Mupirocin [facility] [address]-13 2 % Externally prn Active as directed Clobetasol Propionate [facility] [address]-12 0.05 % Externally prn Active 1 application to affected area Oxycodone-Aspirin [facility] [address]-71 4.8355-325 MG Orally every 6 hrs Active 1 tablet as needed Amlodipine Besylate [facility] [address]-88 10/20 Orally Once a day Active 1 tablet Cortisone Acetate [facility] [address]-11 25 MG Orally Twice a day during Active 1/2 tablet Metoclopramide HCl [facility] [address]-52 10 MG Orally three times a day Active 1/2 tab Lantus [facility] [address]-73 100 UNIT/ML subcutaneously every day (qd) Active 70 units Amoxicillin [facility] [address]-56 500 MG Orally every 12 hrs Feb 05, 2013 Feb 15, 2013 Active 2 tablets OxyContin [facility] [address]-12 15 MG Orally every 12 hrs Mar 07, 2013 Active 1 tablet Amitriptyline HCl [facility] [address]-95 25 MG Orally Once a day Active 1 tablet at bedtime Ultram [facility] [address]-81 50 MG Orally tid Active 2 tabs Ropinirole HCl [facility] [address]-70 0.25 MG Orally 1 to 3 hours prior to bedtime Feb 05, 2013 Active 1 tablet daily for 2 days, then increase to 2 tablets daily for 5 days, then 4 tablets daily Gentamicin Sulfate [facility] [address]-66 0.1 % Externally Three times a day Active 1 application to affected area Tramadol HCl [facility] [address]-34 50 MG Orally tid Active 2 tabs BD Syringe MULT[facility] 07400 # 8411; 1 ML; 30 g x 1/2 Subcutaneous Four times daily Mar 05, 2012 Active as directed DX CODE: 250.00 Amlodipine Besy-Benazepril HCl [facility] [address]-37 10-20 MG Orally Once a day Active 1 capsule OneTouch Ultra Test [facility] 46971 In Vitro May 09, 2011 Active as directed Percodan [facility] [address]-03 4.5-0.38-325 MG Orally q6 hours Active 1 tablet as needed for breakthrough pain Procedures Procedure Coding System Code Date Office Visit, Est Pt., Level 3 CPT-4 92540 Feb 05, 2013 Vital Signs Date/Time: Feb 05, 2013 Weight 229.8 lbs Height 66 inches Blood Pressure Diastolic 88 mm Hg Blood Pressure Systolic 138 mm Hg Results No Known Results Summary Purpose eClinicalWorks Submission
--- OUTSIDE RECORDS SUMMARY | 2016-08-26 06:02 | XMS REPORT ---
Author Author Ilene Nava [facility] eClinicalWorks Address Unknown Phone Unavailable Care Team Providers Care Retail Sales Assistant Name Role Phone Ilene Nava CP Unavailable [...] Start Date End Date Status Dosage BD Syringe MULTUM 11093 # 8411; 1 ML; 30 g x 1/2 Subcutaneous Four times daily Mar 05, 2012 Active as directed DX CODE: 250.00 Vital Signs Date/Time: December 11, 2012 Weight 228.8 lbs Height 66 inches Blood Pressure Diastolic 82 mm Hg Blood Pressure Systolic 128 mm Hg Temperature 98.2 F Results No Known Results Summary Purpose eClinicalWorks Submission
--- OUTSIDE RECORDS SUMMARY | 2016-08-26 06:02 | XMS REPORT ---
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
--- OUTSIDE RECORDS SUMMARY | 2016-08-26 06:02 | XMS REPORT ---
Author Author Ilene Nava [facility] eClinicalWorks Address Unknown Phone Unavailable Care Team Providers Care Electrical Intern Name Role Phone Ilene Nava CP Unavailable [...]
--- OUTSIDE RECORDS SUMMARY | 2016-08-26 06:03 | XMS REPORT ---
Author Author Ilene Nava [facility] eClinicalWorks Address Unknown Phone Unavailable Care Team Providers Care Trucker Name Role Phone Ilene Nava CP Unavailable [...]
--- OUTSIDE RECORDS SUMMARY | 2016-08-26 06:03 | XMS REPORT ---
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
--- OUTSIDE RECORDS SUMMARY | 2016-08-26 06:03 | XMS REPORT ---
Author Author Ilene Nava [facility] eClinicalWorks Address Unknown Phone Unavailable Care Team Providers Care Bioinformatics Team Member Name Role Phone Ilene Nava CP Unavailable [...]
--- OUTSIDE RECORDS SUMMARY | 2016-08-26 06:03 | XMS REPORT ---
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
--- OUTSIDE RECORDS SUMMARY | 2016-08-26 06:03 | XMS REPORT ---
Author Author Pineda Kevin Organization [employer] Address Unknown Phone Unavailable Care Team Providers Care Marble Finisher Name Role Phone Pineda Kevin CP Unavailable [...] Inactive Problem Dysphagia, unspecified 787.20 Inactive Problem care home (current) use of opiate analgesic V58.69 Inactive Problem Back pain, chronic 724.5 Active Problem Esophageal reflux 530.81 Inactive Problem Restless legs syndrome [RLS] 333.94 Active Medications Medication Code System Code Instructions Start Date End Date Status Dosage Cabergoline [facility] [address]-80 0.5 MG Orally three times a week Mar 28, 2014 1 tablet Results No Known Results Summary Purpose eClinicalWorks Submission
--- OUTSIDE RECORDS SUMMARY | 2016-08-26 06:03 | XMS REPORT ---
Author Author Ilene Nava [facility] eClinicalWorks Address Unknown Phone Unavailable Care Team Providers Care Clerk Typist Name Role Phone Ilene Nava CP Unavailable Allergies No Known Allergies Problems Problem Type Condition ICD-9 Code Onset Dates Condition Status Problem Dysphagia, unspecified 787.20 Active Problem Pain in joint, ankle and foot 719.47 Active Problem Allergic rhinitis, cause unspecified 477.9 Active Problem Special screening for malignant neoplasms, intestine, unspecified V76.50 Active Problem Edema 782.3 Active Problem Encounter for therapeutic drug monitoring V58.83 Active Problem Nonspecific elevation of levels of transaminase or lactic acid dehydrogenase (LDH) 790.4 Active 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 Problem Cellulitis and abscess of leg, except foot 682.6 Active Problem Allergic purpura 287.0 Active Problem DM 2, controlled 250.00 Active Problem Unspecified myalgia and myositis 729.1 Active Problem Diabetes mellitus without mention of complication, type II or unspecified type, uncontrolled 250.02 Active Problem Gastroparesis 536.3 Active Problem Essential hypertension, benign 401.1 Active Problem Lumbago 724.2 Active Problem Chronic pain syndrome 338.4 Active Medications Medication Code System Code Instructions Start Date End Date Status Dosage Oxycodone HCl [facility] [address]-90 5 MG Orally every 8 hours Active 1 tablet as needed Vital Signs Date/Time: October 04, 2012 Weight 230.8 lbs Height 66 inches Blood Pressure Diastolic 73 mm Hg Blood Pressure Systolic 107 mm Hg Temperature 97.8 F Results No Known Results Summary Purpose eClinicalWorks Submission
--- OUTSIDE RECORDS SUMMARY | 2016-08-26 06:03 | XMS REPORT ---
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
--- OUTSIDE RECORDS SUMMARY | 2016-08-26 06:03 | XMS REPORT ---
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 [address]-43 100 MG Oral 1 tab daily May 28, 2013 1 tablet Tramadol HCl [facility] [address]-00 50 MG Oral every six hours, as needed [address] [facility] 48774981533 0.5 MG Orally once a week [address] [facility] [address]-04 100 UNIT/ML Subcutaneous daily at bedtime 2am 70 units Pantoprazole Sodium [facility] [address]-06 40 MG Oral 1 (one) every morning December 23, 2013 1 tablet Testosterone Cypionate [facility] [address]-59 200 MG/ML Intramuscular every 2 weeks 200 mg Levothyroxine Sodium [facility] 05578194144 100 Orally 1 (one) daily 1 tablet OneTouch Ultra Blue ND 0 1 In Vitro 4 times daily Jul 15, 2013 as directed Amitriptyline HCl [facility] [address]-95 25 MG Orally at bedtime October 22, 2013 1-2 tablets OneTouch Delica Lancets [facility] 0 1 Misc four times daily Jun 04, 2012 not defined Oxycodone HCl [facility] [address]-98 5 MG Oral 1 tab up to 5x a day pain mgt. NovoLog [facility] [address]-79 100 UNIT/ML Subcutaneous TID with meals December 23, 2013 24 units Irbesartan [facility] 86577240480 300 MG Orally Once a day 1 tablet BD Insulin Syringe [facility] 31652680875 30G X 1/2 intramuscular 1 (one) four times daily as directed Amlodipine Besylate [facility] [address]-38 10 MG Orally Once a day May 27, 2013 1 tablet Procedures Procedure Coding System Code Date THER/PROPH/DIAG INJ, SC/IM CPT-4 89948 Jan 05, 2016 Testosterone Cypionate (Depo-Testosterone) CPT-4 J1071 Jan 05, 2016 Results No Known Results Summary Purpose eClinicalWorks Submission
--- OUTSIDE RECORDS SUMMARY | 2016-08-26 06:03 | XMS REPORT ---
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 Problem Dorsalgia, unspecified M54.9 Active Assessment Secondary hypothyroidism E03.8 Active Problem Secondary hypothyroidism E03.8 Active Problem Diabetes type 2, uncontrolled E11.65 Active Problem Chronic pain syndrome G89.4 Active Problem Gastro-esophageal reflux disease without esophagitis K21.9 Active Problem Essential (primary) hypertension I10 Active Assessment Diabetes type 2, uncontrolled E11.65 Active Problem 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 Active Assessment Secondary adrenal insufficiency E27.49 Active Assessment 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 Problem Hypertension 401.9 Active 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 Inactive [...] times daily Jul 15, 2013 as directed Metoprolol Succinate ER NDC [address]-89 100 MG Oral 1 tab daily May 28, 2013 1 tablet Lantus [facility] [address]-63 100 UNIT/ML Subcutaneous daily at bedtime 2am 70 units Levothyroxine Sodium [facility] 62725003196 100 Orally 1 (one) daily 1 tablet NovoLog [facility] [address]-84 100 UNIT/ML Subcutaneous TID with meals December 23, 2013 20 units Amitriptyline HCl [facility] [address]-04 25 MG Orally at bedtime October 22, 2013 1-2 tablets BD Insulin Syringe [facility] 87930304005 30G X 1/2 intramuscular 1 (one) four times daily as directed Amlodipine Besylate [facility] [address]-77 10 MG Orally Once a day May 27, 2013 1 tablet Cabergoline [facility] 98375561135 0.5 MG Orally once a week 1 tablet Irbesartan [facility] 73965839855 300 MG Orally Once a day 1 tablet Testosterone Cypionate [facility] [address]-71 200 MG/ML Intramuscular every 2 weeks 200 mg Pantoprazole Sodium [facility] [address]-49 40 MG Oral 1 (one) every morning December 23, 2013 1 tablet Oxycodone HCl [facility] [address]-45 5 MG Oral 1 tab up to 5x a day pain mgt. Tramadol HCl [facility] [address]-83 50 MG Oral every six hours, as needed 1 Procedures Procedure Coding System Code Date Office Visit, Est Pt., Level 4 CPT-4 28177 Feb 17, 2016 GLYCATED HEMOGLOBIN TEST CPT-4 35060 Feb 17, 2016 Vital Signs Date/Time: Feb 17, 2016 Blood Pressure Systolic 122 mm Hg Weight 227 lbs Height 66.74 in BMI 35.83 Index Respiratory Rate 18 /min Cardiac Monitoring Heart Rate 59 /min Blood Pressure Diastolic 78 mm Hg Results Name Result Date Reference Range Unit Abnormality Flag Hemoglobin A1c (HbA1c) ----Hemoglobin A1c 8.5% [id number] Summary Purpose eClinicalWorks Submission
--- OUTSIDE RECORDS SUMMARY | 2016-08-26 06:03 | XMS REPORT ---
Author Author Dave Hart Organization eClinicalWorks Address Unknown Phone Unavailable Care Team Providers Care Campus Police Officer Name Role Phone Dave Hart CP Unavailable Allergies, Adverse Reactions, Alerts Substance Reaction Event Type Lyrica *anticonvulsants* ; increased anxiety and mood swings Non Drug Allergy Gabapentin *anticonvulsants* Info Not Available Non Drug Allergy Ropinirole Hcl *antiparkinson Agents* ; made his jerking worse! 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 Assessment Hypertension 401.9 Active Problem halfway (current) use of opiate analgesic V58.69 Inactive Assessment Chronic pain syndrome 338.4 Active Problem Restless legs syndrome [RLS] 333.94 [...] Date End Date Status Dosage Cabergoline [facility] [address]-99 0.5 MG Orally three times a week Mar 28, 2014 1 tablet Diazepam [facility] [address]-32 2 MG Oral 1 as needed Limit 2 tabs Q24H Lantus [facility] [address]-89 100 UNIT/ML Subcutaneous 70 at bedtime December 23, 2013 Per Pineda Kevin PA-C supervised under Bertin Crump OneTouch Delica Lancets N[facility] 0 1 Misc four times daily Jun 04, 2012 not defined Pantoprazole Sodium [facility] [address]-02 40 MG Oral 1 (one) every morning December 23, 2013 1 tablet Testosterone Cypionate [facility] [address]-37 200 MG/ML Intramuscular 1 ml Amlodipine Besylate [facility] [address]-14 10 MG Orally Once a day May 27, 2013 1 tablet BD Insulin Syringe N[facility] 0 30G X 1/2 intramuscular 1 (one) four times daily May 02, 2013 as directed NovoLog [facility] [address]-94 100 UNIT/ML Subcutaneous 32 with meals December 23, 2013 Per Pineda Kevin PA-C supervised under Bertin Crump. OneTouch Ultra Blue NDC 0 In Vitro 2 (two) daily Jul 15, 2013 not defined Metoprolol Succinate ER [facility] [address]-70 100 MG Oral 1 tab daily May 28, 2013 1 tablet Oxycodone HCl [facility] [address]-09 5 MG Oral 1 tab up to 5x a day pain mgt. Amitriptyline HCl [facility] [address]-64 25 MG Orally at bedtime October 22, 2013 1-2 tablets Irbesartan [facility] [address]-70 300 MG Orally Once a day August 30, 2013 1 tablet Levothyroxine Sodium [facility] [address]-98 100 MCG Orally 1 (one) daily Jun 1 tablet Cortisone Acetate [facility] [address]-53 25 MG Oral 1 (one) two times daily December 23, 2013 not defined Procedures Procedure Coding System Code Date Office Visit, Est Pt., Level 4 CPT-4 68420 October 30, 2014 Vital Signs Date/Time: October 30, 2014 Temperature 97.9 F Weight 225 lb 8 oz lbs Height 66.74 in Respiratory Rate 16 /min Cardiac Monitoring Heart Rate 48 /min Blood Pressure Diastolic 84 mm Hg Blood Pressure Systolic 134 mm Hg BMI 35.59 Index Results No Known Results Summary Purpose eClinicalWorks Submission
--- OUTSIDE RECORDS SUMMARY | 2016-08-26 06:03 | XMS REPORT ---
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
--- OUTSIDE RECORDS SUMMARY | 2016-08-26 06:03 | XMS REPORT ---
Author Author Ilene Nava [facility] eClinicalWorks Address Unknown Phone Unavailable Care Team Providers Care Poultry Pathologist Name Role Phone Ilene Nava CP Unavailable [...] Date End Date Status Dosage Metoprolol Succinate [facility] [address]-88 100 MG Orally Once a day Active 1 tablet Vital Signs Date/Time: Feb 05, 2013 Weight 229.8 lbs Height 66 inches Blood Pressure Diastolic 88 mm Hg Blood Pressure Systolic 138 mm Hg Results No Known Results Summary Purpose eClinicalWorks Submission
--- OUTSIDE RECORDS SUMMARY | 2016-08-26 06:03 | XMS REPORT ---
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 Assessment Diabetes type 2, uncontrolled E11.65 Active Assessment Prostate cancer screening Z12.5 Active Assessment 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 Problem Fibromyalgia 729.1 Active Problem Sleep apnea 780.57 Active Problem Back pain, chronic 724.5 Active Problem Hypertension 401.9 Active Problem 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 Active Problem group home (current) use of opiate analgesic V58.69 Inactive Medications Medication Code System Code Instructions Start Date End Date Status Dosage Amlodipine Besylate [facility] [address]-76 10 MG Orally Once a day May 27, 2013 1 tablet Pantoprazole Sodium [facility] [address]-94 40 MG Oral 1 (one) every morning December 23, 2013 1 tablet Cabergoline [facility] [address]-95 0.5 MG Orally once every other week Mar 28, 2014 1 tablet Testosterone Cypionate [facility] [address]-59 200 MG/ML Intramuscular every 2 weeks 200 mg Oxycodone HCl [facility] [address]-89 5 MG Oral 1 tab up to 5x a day pain mgt. OneTouch Ultra Blue NDC 0 1 In Vitro 4 times daily Jul 15, 2013 as directed Tramadol HCl [facility] [address]-55 50 MG Oral every six hours, as needed 1 Irbesartan [facility] 55063708934 300 MG Orally Once a day 1 tablet Amitriptyline HCl [facility] [address]-71 25 MG Orally at bedtime October 22, 2013 1-2 tablets OneTouch Delica Lancets ND 0 1 Misc four times daily Jun 04, 2012 not defined NovoLog [facility] [address]-32 100 UNIT/ML Subcutaneous TID with meals December 23, 2013 24 units Lantus [facility] [address]-04 100 UNIT/ML Subcutaneous daily at bedtime November 70 units Diazepam [facility] [address]-56 2 MG Oral 1 as needed Limit 2 tabs Q24H BD Insulin Syringe NDC 0 30G X 1/2 intramuscular 1 (one) four times daily May 02, 2013 [place] [address]-68 100 MG Oral 1 tab daily May 28, 2013 1 tablet Levothyroxine Sodium ND 21178741839 100 Orally 1 (one) daily 1 tablet Procedures Procedure Coding System Code Date GLUCOSE BLOOD TEST CPT-4 73104 May 19, 2015 Office Visit, Est Pt., Level 4 CPT-4 01608 May 19, 2015 GLYCATED HEMOGLOBIN TEST CPT-4 88316 May 19, 2015 Vital Signs Date/Time: May 19, 2015 Blood Pressure Systolic 130 mm Hg Weight 232.2 lbs Height 66.74 in BMI 36.65 Index Respiratory Rate 16 /min Cardiac Monitoring Heart Rate 66 /min Blood Pressure Diastolic 82 mm Hg Results No Known Results Summary Purpose eClinicalWorks Submission
--- OUTSIDE RECORDS SUMMARY | 2016-08-26 06:03 | XMS REPORT ---
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 Medications Medication Code System Code Instructions Start Date End Date Status Dosage Diazepam [facility] [address]-25 2 MG Oral 1 as needed Limit 2 tabs Q24H Irbesartan [facility] 36503003970 300 MG Orally Once a day 1 tablet Lantus [facility] [address]-66 100 UNIT/ML Subcutaneous daily at bedtime November 75 units Amlodipine Besylate [facility] [address]-03 10 MG Orally Once a day May 27, 2013 1 tablet OneTouch Ultra Blue NDC 0 1 In Vitro 4 times daily Jul 15, 2013 as directed Levothyroxine Sodium [facility] 63467744171 100 Orally 1 (one) daily 1 tablet Pantoprazole Sodium [facility] [address]-97 40 MG Oral 1 (one) every morning December 23, 2013 1 [place] [address]-45 100 MG Oral 1 tab daily May 28, 2013 1 tablet BD Insulin Syringe NDC 0 30G X 1/2 intramuscular 1 (one) four times daily May 02, 2013 as directed Oxycodone HCl [facility] [address]-45 5 MG Oral 1 tab up to 5x a day pain mgt. Amitriptyline HCl [facility] [address]-48 25 MG Orally at bedtime October 22, 2013 1-2 tablets NovoLog [facility] [address]-04 100 UNIT/ML Subcutaneous TID with meals December 23, 2013 28 units Cabergoline [facility] [address]-47 0.5 MG Orally twice a week Mar 28, 2014 1 tablet Cortisone Acetate [facility] [address]-70 25 MG Oral 1 (one) two times daily December 23, 2013 not defined Testosterone Cypionate [facility] [address]-81 200 MG/ML Intramuscular every 2 weeks 200 mg OneTouch Delica Lancets [facility] 0 1 Misc four times daily Jun 04, 2012 not defined Procedures Procedure Coding System Code Date INJ TESTOSTERONE CYPIONATE 1 MG CPT-4 J1071 Mar 19, 2015 THER/PROPH/DIAG INJ, SC/IM CPT-4 33175 Mar 19, 2015 Results No Known Results Summary Purpose eClinicalWorks Submission
--- OUTSIDE RECORDS SUMMARY | 2016-08-26 06:03 | XMS REPORT ---
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
--- OUTSIDE RECORDS SUMMARY | 2016-08-26 06:03 | XMS REPORT ---
Author Author Fawad Thomas Organization [employer] Address Unknown Phone Unavailable Care Team Providers Care Tube Worker Name Role Phone Fawad Thomas CP Unavailable Allergies No Known Allergies Problems [...]
--- OUTSIDE RECORDS SUMMARY | 2016-08-26 06:03 | XMS REPORT ---
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
--- OUTSIDE RECORDS SUMMARY | 2016-08-26 06:04 | XMS REPORT ---
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 Problem Chronic pain syndrome 338.4 Active Problem Diabetes type 2, controlled 250.00 Active Problem Hypercalcemia 275.42 Active Assessment 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 [address]-48 10 MG Orally Once a day May 27, 2013 1 tablet OneTouch Delica Lancets [facility] 0 1 Misc four times daily Jun 04, 2012 not defined Levothyroxine Sodium [facility] 59960566896 100 Orally 1 (one) daily 1 tablet Amitriptyline HCl [facility] [address]-50 25 MG Orally at bedtime October 22, 2013 1-2 tablets Lantus [facility] [address]-07 100 UNIT/ML Subcutaneous daily at bedtime November 75 units Cortisone Acetate [facility] [address]-60 25 MG Oral 1 (one) two times daily December 23, 2013 not defined OneTouch Ultra Blue NDC 0 1 In Vitro 4 times daily Jul 15, 2013 as directed BD Insulin Syringe NDC 0 30G X 1/2 intramuscular 1 (one) four times daily May 02, 2013 as directed Cabergoline [facility] [address]-68 0.5 MG Orally three times a week Mar 28, 2014 1 tablet Diazepam [facility] [address]-02 2 MG Oral 1 as needed Limit 2 tabs Q24H Irbesartan [facility] [address]-45 300 MG Orally Once a day August 30, 2013 1 tablet Pantoprazole Sodium [facility] [address]-90 40 MG Oral 1 (one) every morning December 23, 2013 1 tablet Oxycodone HCl [facility] [address]-17 5 MG Oral 1 tab up to 5x a day pain mgt. NovoLog [facility] [address]-09 100 UNIT/ML Subcutaneous TID with meals December 23, 2013 28 units Metoprolol Succinate ER [facility] [address]-49 100 MG Oral 1 tab daily May 28, 2013 1 tablet Procedures Procedure Coding System Code Date THER/PROPH/DIAG INJ, SC/IM CPT-4 74376 Jan 01, 2015 Office Visit, Est Pt., Level 4 CPT-4 85941 Jan 01, 2015 Testosterone Cypionate (Depo-Testosterone) CPT-4 J1071 Jan 01, 2015 Vital Signs Date/Time: Jan 01, 2015 Blood Pressure Systolic 120 mm Hg Weight 222.0 lbs Height 66.74 in BMI 35.04 Index Respiratory Rate 16 /min Cardiac Monitoring Heart Rate 68 /min Blood Pressure Diastolic 78 mm Hg Results Name Result Date Reference Range Unit Abnormality Flag Thyroid-Stimulating Hormone (TSH) 95673 Summary Purpose eClinicalWorks Submission
--- OUTSIDE RECORDS SUMMARY | 2016-08-26 06:04 | XMS REPORT ---
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
--- OUTSIDE RECORDS SUMMARY | 2016-08-26 06:04 | XMS REPORT ---
Author Author Ilene Nava [facility] eClinicalWorks Address Unknown Phone Unavailable Care Team Providers Care Automation Clerk Name Role Phone Ilene Nava CP Unavailable [...]
--- OUTSIDE RECORDS SUMMARY | 2016-08-26 06:04 | XMS REPORT ---
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 Problem Pain in joint, ankle and foot 719.47 Active Problem Encounter for therapeutic drug monitoring V58.83 Active Assessment Unspecified hypothyroidism 244.9 Active Problem Special screening for malignant neoplasms, [...] Start Date End Date Status Dosage Amlodipine Besy-Benazepril HCl [facility][NOTE 3] [address]-94 10-20 MG Orally Once a day Active 1 capsule Oxycodone HCl [facility][NOTE 3] [address]-88 10 MG Orally every 12 hrs November 13, 2012 Active 1 tablet Pantoprazole Sodium [facility][NOTE 3] [address]-04 40 MG Orally Once a day Apr 04, 2012 Active 1 tablet Diovan [facility][NOTE 3] [address]-54 320 MG Orally Once a day Mar 29, 2010 Active 1 tablet Metoclopramide HCl [facility][NOTE 3] [address]-14 10 MG Orally three times a day Active 1/2 tab OneTouch Ultra Test MULTUM 80051 In Vitro May 09, 2011 Active as directed Amitriptyline HCl [facility][NOTE 3] [address]-21 25 MG Orally Once a day Active 1 tablet at bedtime Lantus [facility][NOTE 3] [address]-48 100 UNIT/ML subcutaneously every day (qd) Active 70 units Gentamicin Sulfate [facility][NOTE 3] [address]-88 0.1 % Externally Three times a day Active 1 application to affected area Oxycodone HCl [facility]NOTE 3] [address]-29 5 MG Orally every 8 hours Active 1 tablet as needed Mupirocin [facility]NOTE 3] [address]-28 2 % Externally prn Active as directed Calcipotriene [facility]NOTE 3] [address]-34 0.005 % Externally prn Active 1 application to affected area Ultram [facility][NOTE 3] [address]-33 50 MG Orally tid Active 2 tabs NovoLog [facility][NOTE 3] [address]-03 100 ml SQ TID Active 32 units Amlodipine Besylate [facility][NOTE 3] [address]-69 10/20 Orally Once a day Active 1 tablet BD Syringe [facility] [address] # 8411; 1 ML; 30 g x 1/2 Subcutaneous Four times daily Mar 05, 2012 Active as directed DX CODE: 250.00 Clobetasol Propionate [facility][NOTE 3] [address]-22 0.05 % Externally prn Active 1 application to affected area Cabergoline [facility][NOTE 3] [address]-38 0.5 MG Orally 3 times weekly Active 1 tab Metoprolol Succinate [facility]NOTE 3] [address]-32 100 MG Orally Once a day Active 1 tablet Percodan [facility][NOTE 3] [address]-69 4.5-0.38-325 MG Orally q6 hours Active 1 tablet as needed for pain Levothyroxine Sodium [facility][NOTE 3] [address]-28 .100 mcg Orally Once a day Active 1 tablet every morning on an empty stomach Procedures Procedure Coding System Code Date ASSAY OF FREE THYROXINE CPT-4 98309 November 13, 2012 ASSAY, TRIIODOTHYRONINE (T3) CPT-4 48119 November 13, 2012 ASSAY THYROID STIM HORMONE CPT-4 58370 November 13, 2012 Office Visit, Est Pt., Level 3 CPT-4 35294 November 13, 2012 Vital Signs Date/Time: November 13, 2012 Weight 231.8 lbs Height 66 inches Blood Pressure Diastolic 83 mm Hg Blood Pressure Systolic 121 mm Hg Temperature 98.8 F Results No Known Results Summary Purpose eClinicalWorks Submission
--- OUTSIDE RECORDS SUMMARY | 2016-08-26 06:04 | XMS REPORT ---
Author Author Ilene Nava [facility] eClinicalWorks Address Unknown Phone Unavailable Care Team Providers Care Director Of Partner Marketing Name Role Phone Ilene Nava CP Unavailable [...] Start Date End Date Status Dosage Lantus [facility] [address]-92 100 UNIT/ML subcutaneously every day (qd) Active 70 units Vital Signs Date/Time: Feb 05, 2013 Weight 229.8 lbs Height 66 inches Blood Pressure Diastolic 88 mm Hg Blood Pressure Systolic 138 mm Hg Results No Known Results Summary Purpose eClinicalWorks Submission
--- OUTSIDE RECORDS SUMMARY | 2016-08-26 06:04 | XMS REPORT ---
Author Author Ilene Nava [facility] eClinicalWorks Address Unknown Phone Unavailable Care Team Providers Care Instrumentation Engineering Technician Name Role Phone Ilene Nava CP Unavailable [...]
--- OUTSIDE RECORDS SUMMARY | 2016-08-26 06:04 | XMS REPORT ---
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 Inactive Problem Fibromyalgia 729.1 Active Problem Restless legs syndrome [RLS] 333.94 Active Medications Medication Code System Code Instructions Start Date End Date Status Dosage Lantus [facility] [address]-00 100 UNIT/ML Subcutaneous daily at bedtime November 70 units Amitriptyline HCl [facility] [address]-91 25 MG Orally at bedtime October 22, 2013 1-2 tablets Metoprolol Succinate ER [facility] [address]-30 100 MG Oral 1 tab daily May 28, 2013 1 tablet Diazepam [facility] [address]-39 2 MG Oral 1 as needed Limit 2 tabs Q24H Amlodipine Besylate [facility] [address]-05 10 MG Orally Once a day May 27, 2013 1 tablet Cabergoline [facility] [address]-36 0.5 MG Orally once every other week Mar 28, 2014 1 tablet Oxycodone HCl [facility] [address]-46 5 MG Oral 1 tab up to 5x a day pain mgt. NovoLog [facility] [address]-39 100 UNIT/ML Subcutaneous TID with meals December 23, 2013 24 units Levothyroxine Sodium [facility] 29422848471 100 Orally 1 (one) daily 1 tablet BD Insulin Syringe [facility] 12214756363 30G X 1/2" 05 ML intramuscular 1 (one) four times daily as directed OneTouch Ultra Blue NDC 0 1 In Vitro 4 times daily Jul 15, 2013 as directed Pantoprazole Sodium [facility] [address]-82 40 MG Oral 1 (one) every morning December 23, 2013 1 tablet OneTouch Delica Lancets [facility] 0 1 Misc four times daily Jun 04, 2012 not defined Irbesartan [facility] 83022121256 300 MG Orally Once a day 1 tablet Testosterone Cypionate [facility] [address]-33 200 MG/ML Intramuscular every 2 weeks 200 mg Tramadol HCl [facility] [address]-96 50 MG Oral every six hours, as needed 1 Results No Known Results Summary Purpose eClinicalWorks Submission
--- OUTSIDE RECORDS SUMMARY | 2016-08-26 06:04 | XMS REPORT ---
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 V58.69 Inactive Problem Sleep apnea 780.57 Active Problem Restless legs syndrome [RLS] 333.94 Active Medications Medication Code System Code Instructions Start Date End Date Status Dosage NovoLog [facility] [address]-05 100 UNIT/ML Subcutaneous TID with meals December 23, 2013 28 units BD Insulin Syringe ND 0 30G X 1/2 intramuscular 1 (one) four times daily May 02, 2013 as directed Testosterone Cypionate [facility] [address]-69 200 MG/ML Intramuscular every 2 weeks 200 mg Cabergoline [facility] [address]-07 0.5 MG Orally twice a week Mar 28, 2014 1 tablet Oxycodone HCl [facility] [address]-38 5 MG Oral 1 tab up to 5x a day pain mgt. Pantoprazole Sodium [facility] [address]-19 40 MG Oral 1 (one) every morning December 23, 2013 1 tablet Cortisone Acetate [facility] [address]-24 25 MG Oral 1 (one) two times daily December 23, 2013 not defined Amitriptyline HCl [facility] [address]-83 25 MG Orally at bedtime October 22, 2013 1-2 tablets Irbesartan [facility] 45337939365 300 MG Orally Once a day 1 tablet Levothyroxine Sodium [facility] 81122642745 100 Orally 1 (one) daily 1 tablet OneTouch Delica Lancets [facility] 0 1 Misc four times daily Jun 04, 2012 not defined Lantus [facility] [address]-30 100 UNIT/ML Subcutaneous daily at bedtime November 75 units Diazepam [facility] [address]-81 2 MG Oral 1 as needed Limit 2 tabs Q24H Amlodipine Besylate [facility] [address]-36 10 MG Orally Once a day May 27, 2013 1 tablet Metoprolol Succinate ER [facility] [address]-99 100 MG Oral 1 tab daily May 28, 2013 1 tablet OneTouch Ultra Blue [facility] 0 1 In Vitro 4 times daily Jul 15, 2013 as directed Results No Known Results Summary Purpose eClinicalWorks Submission
--- OUTSIDE RECORDS SUMMARY | 2016-08-26 06:04 | XMS REPORT ---
Author Author Pineda Kevin Organization [employer] Address Unknown Phone Unavailable Care Team Providers Care Risk Analyst Name Role Phone Pineda Kevin CP [...] Active Problem 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 Active Assessment Hypogonadism in male E29.1 Active Problem Hypogonadism, male 257.2 Active Problem Hypertension 401.9 Active Problem Fibromyalgia 729.1 Active Problem [facility] (current) use of opiate analgesic V58.69 Inactive Problem Sleep apnea 780.57 Active Problem Restless legs syndrome [RLS] 333.94 Active Medications Medication Code System Code Instructions Start Date End Date Status Dosage Amlodipine Besylate [facility] [address]-74 10 MG Orally Once a day May 27, 2013 1 tablet Metoprolol Succinate ER [facility] [address]-09 100 MG Oral 1 tab daily May 28, 2013 1 tablet Amitriptyline HCl [facility] [address]-87 25 MG Orally at bedtime October 22, 2013 1-2 tablets Levothyroxine Sodium [facility] 89029936501 100 Orally 1 (one) daily 1 tablet Testosterone Cypionate [facility] [address]-35 200 MG/ML Intramuscular every 2 weeks 200 mg BD Insulin Syringe ND 0 30G X 1/2 intramuscular 1 (one) four times daily May 02, 2013 as directed Cortisone Acetate [facility] [address]-99 25 MG Oral 1 (one) two times daily December 23, 2013 not defined Diazepam [facility] [address]-09 2 MG Oral 1 as needed Limit 2 tabs Q24H Irbesartan [facility] 42477006582 300 MG Orally Once a day 1 tablet OneTouch Ultra Blue NDC 0 1 In Vitro 4 times daily Jul 15, 2013 as directed OneTouch [place] Lancotto NDC 0 1 Misc four times daily Jun 04, 2012 not defined Lantus [facility] [address]-78 100 UNIT/ML Subcutaneous daily at bedtime November 75 units Oxycodone HCl [facility] [address]-10 5 MG Oral 1 tab up to 5x a day pain mgt. NovoLog [facility] [address]-07 100 UNIT/ML Subcutaneous TID with meals December 23, 2013 28 units Pantoprazole Sodium [facility] [address]-84 40 MG Oral 1 (one) every morning December 23, 2013 1 tablet Cabergoline [facility] [address]-77 0.5 MG Orally twice a week Mar 28, 2014 1 tablet Procedures Procedure Coding System Code Date THER/PROPH/DIAG INJ, SC/IM CPT-4 22128 Apr 21, 2015 Testosterone Cypionate (Depo-Testosterone) CPT-4 J1071 Apr 21, 2015 Results No Known Results Summary Purpose [employer] Submission
--- OUTSIDE RECORDS SUMMARY | 2016-08-26 06:04 | XMS REPORT ---
Author Author Dave Hart Organization [employer] Address Unknown Phone Unavailable Care Team Providers Care Wrapper Hands Sprayer Name Role Phone Dave Hart CP Unavailable [...] Active Problem 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 Active Problem [facility] (current) use of opiate analgesic V58.69 Inactive Medications Medication Code System Code Instructions Start Date End Date Status Dosage Amlodipine Besylate [facility] [address]-37 10 MG Orally Once a day May 27, 2013 1 tablet Results No Known Results Summary Purpose [employer] Submission
--- OUTSIDE RECORDS SUMMARY | 2016-08-26 06:04 | XMS REPORT ---
Author Author Ilene Nava [facility] [employer] Address Unknown Phone Unavailable Care Team Providers Care It Consulting Director Name Role Phone Ilene Nava CP Unavailable [...]
--- OUTSIDE RECORDS SUMMARY | 2016-08-26 06:04 | XMS REPORT ---
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
--- OUTSIDE RECORDS SUMMARY | 2016-08-26 06:04 | XMS REPORT ---
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 V58.69 [...] Date End Date Status Dosage Cortisone Acetate [facility] [address]-71 25 MG Oral 1 (one) two times daily December 23, 2013 not defined NovoLog [facility] [address]-82 100 UNIT/ML Subcutaneous TID with meals December 23, 2013 28 units Levothyroxine Sodium [facility] 13363856282 100 Orally 1 (one) daily 1 tablet BD Insulin Syringe NDC 0 30G X 1/2 intramuscular 1 (one) four times daily May 02, 2013 as directed Pantoprazole Sodium [facility] [address]-88 40 MG Oral 1 (one) every morning December 23, 2013 1 tablet Amlodipine Besylate [facility] [address]-89 10 MG Orally Once a day May 27, 2013 1 tablet OneTouch Ultra Blue NDC 0 1 In Vitro 4 times daily Jul 15, 2013 as directed Lantus [facility] [address]-20 100 UNIT/ML Subcutaneous daily at bedtime November 75 units Cabergoline [facility] [address]-59 0.5 MG Orally three times a week Mar 28, 2014 1 tablet Amitriptyline HCl [facility] [address]-61 25 MG Orally at bedtime October 22, 2013 1-2 tablets Diazepam [facility] [address]-80 2 MG Oral 1 as needed Limit 2 tabs Q24H Irbesartan [facility] [address]-55 300 MG Orally Once a day August 30, 2013 1 tablet Oxycodone HCl [facility] [address]-84 5 MG Oral 1 tab up to 5x a day pain mgt. OneTouch Delica Lancets [facility] 0 1 Misc four times daily Jun 04, 2012 not defined Metoprolol Succinate ER [facility] [address]-63 100 MG Oral 1 tab daily May 28, 2013 1 tablet Procedures Procedure Coding System Code Date THER/PROPH/DIAG INJ, SC/IM CPT-4 37996 Jan 19, 2015 Testosterone Cypionate (Depo-Testosterone) CPT-4 J1071 Jan 19, 2015 Results No Known Results Summary Purpose [employer]Works Submission
--- OUTSIDE RECORDS SUMMARY | 2016-08-26 06:04 | XMS REPORT ---
Author Author Ilene Nava [facility] e[employer] Address Unknown Phone Unavailable Care Team Providers Care Pediatric Dentist Name Role Phone Ilene Nava CP Unavailable [...] Date End Date Status Dosage Amitriptyline HCl [facility] [address]-57 25 MG Orally Once a day Active 1 tablet at bedtime Vital Signs Date/Time: Mar 07, 2013 Weight 230.0 lbs Height 66 inches Blood Pressure Diastolic 84 mm Hg Blood Pressure Systolic 129 mm Hg Temperature 98.5 F Results No Known Results Summary Purpose [employer]ClinicalWorks Submission
--- OUTSIDE RECORDS SUMMARY | 2016-08-26 06:04 | XMS REPORT ---
Author Author Pineda Kevin Organization [employer] Address Unknown Phone Unavailable Care Team Providers Care Manager Testing Name Role Phone Pineda Kevin CP Unavailable [...] 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.3 Active Problem Fibromyalgia 729.1 Active Problem Back pain, chronic 724.5 Active Problem custodial (current) use of opiate analgesic V58.69 Inactive Problem Restless legs syndrome [RLS] 333.94 Active Problem Sleep apnea 780.57 Active Problem Other chronic pain 338.29 Inactive Problem Hypertension 401.9 Active Problem Chronic pain syndrome 338.4 Active Medications No Known Medications Results No Known Results Summary Purpose [employer]ClinicalWorks Submission
--- OUTSIDE RECORDS SUMMARY | 2016-08-26 06:05 | XMS REPORT ---
Author Author Pineda Kevin [facility] eClinical[employer] Address Unknown Phone Unavailable Care Team Providers Care Casting Technician Name Role Phone Pineda Kevin CP [...] 194.3 Active Problem Hypertension 401.9 Active Problem roller staker (current) use of opiate analgesic V58.69 Inactive Problem Fibromyalgia 729.1 Active Problem Restless legs syndrome [RLS] 333.94 Active Problem Sleep apnea 780.57 Active Problem Hypercalcemia 275.42 Active Medications Medication Code System Code Instructions Start Date End Date Status Dosage Amlodipine Besylate [facility] [address]-80 10 MG Orally Once a day May 27, 2013 1 tablet Tramadol HCl [facility] [address]-12 50 MG Oral every six hours, as needed 1 OneTouch Ultra Blue NDC 0 1 In Vitro 4 times daily Jul 15, 2013 as directed Irbesartan [facility] 08242478013 300 MG Orally Once a day 1 tablet Testosterone Cypionate [facility] [address]-11 200 MG/ML Intramuscular every 2 weeks 200 mg Cabergoline [facility] 86714824477 0.5 MG Orally once a week 1 tablet Pantoprazole Sodium [facility] [address]-90 40 MG Oral 1 (one) every morning December 23, 2013 1 tablet NovoLog [facility] [address]-89 100 UNIT/ML Subcutaneous TID with meals December 23, 2013 20 units OneTouch Delica Lancets NDC 0 1 Misc four times daily Jun 04, 2012 not defined Oxycodone HCl [facility] [address]-45 5 MG Oral 1 tab up to 5x a day pain mgt. Amitriptyline HCl [facility] [address]-99 25 MG Orally at bedtime October 22, 2013 1-2 tablets Levothyroxine Sodium [facility] 45301037787 100 Orally 1 (one) daily 1 tablet Metoprolol Succinate ER [facility] [address]-73 100 MG Oral 1 tab daily May 28, 2013 1 tablet BD Insulin Syringe [facility] 77205924562 30G X 1/2 intramuscular 1 (one) four times daily as directed Lantus [facility] [address]-07 100 UNIT/ML Subcutaneous daily at bedtime 2am 70 units Procedures Procedure Coding System Code Date THER/PROPH/DIAG INJ, SC/IM CPT-4 78404 Mar 08, 2016 Testosterone Cypionate (Depo-Testosterone) CPT-4 J1071 Mar 08, 2016 Results No Known Results Summary Purpose eClinicalWorks Submission
[2016-08-26] MEDS ORDERED: METOPROLOL PO (06:50)
[2016-08-26] MEDS ORDERED: PANT40TA27 PO (06:56)
[2016-08-26] MEDS ORDERED: OXYC5CAP3 PO (06:56)
[2016-08-26] MEDS ORDERED: TRAM50TA4 PO (06:56)
[2016-08-26] MEDS ORDERED: INSU100V8 SQ (06:56)
[2016-08-26] MEDS ORDERED: NOVALOG INSULIN SQ (06:56)
[2016-08-26] MEDS ORDERED: LEVOTHYROXINE PO (06:56)
[2016-08-26] MEDS ORDERED: AMITRIPTYLINE PO (06:56)
[2016-08-26] MEDS ORDERED: LIDOCAINE 1% (10mg/ml) 2ml SDV INJ ONE (07:00)
[2016-08-26] MEDS ORDERED: LR 1,000 ML IV SCH (07:00)
[2016-08-26] MEDS ORDERED: IRBE300T19 PO (07:01)
[2016-08-26] MEDS ORDERED: AMLO10TA2 PO (07:01)
[2016-08-26] MEDS ORDERED: LEVO100T12 PO (07:01)
[2016-08-26] MEDS ORDERED: CABE0.5T2 PO (07:01)
[2016-08-26] MEDS ORDERED: AMIT25TA9 PO (07:01)
[2016-08-26] MEDS ORDERED: METO-279 PO (07:01)
--- NOTE | 2016-08-26 07:20 | ANESPREOP ---
Anesthesia Record Date and Time DATE: 08/26/16 TIME: 07:18 Pre-Op Diagnosis dysphagia Proposed Surgical Procedure EGD NPO since: mn Allergies: Coded Allergies: pregabalin (Verified Allergy, Intermediate, ANXIETY, 08/26/16) Iodinated Contrast Media - Oral and (Verified Allergy, Unknown, 08/26/16) Iodine and Iodide Containing Produc (Verified Allergy, Unknown, 08/26/16) iodine (Unverified Allergy, Unknown, 08/26/16) ropinirole (Verified Adverse Reaction, Severe, MADE JERKING WORSE, 08/26/16 ) duloxetine (Verified Adverse Reaction, Intermediate, MOOD SWINGS, 08/26/16) gabapentin (Verified Adverse Reaction, Intermediate, ANXIOUS, 08/26/16) Ht/Wt/BMI Height: 5 ' 7.00 " Weight: 103.800 kg BMI: 35.8 kg/m2 Vital Signs Date Time Temp Pulse Resp B/P Pulse Ox O2 Delivery O2 Flow Rate FiO2 08/26/16 06:14 97.8 61 16 146/101 94 Room Air Medications Inpatient Medications Current Medications Medications (Trade) Dose Ordered Sig/Cristine Start Time Stop Time Status Last Admin Dose Admin Lactated Ringer's (Lactated Ringers) 1,000 ml @ 50 mls/hr Q20H 08/26/16 07:00 08/26/16 06:45 50 MLS/HR Amitriptyline HCl (Amitriptyline HCl) 25 Mg Tablet, 2 TAB PO HS, (Reported) Last Taken: on 08/25/161999 Amlodipine Besylate (Amlodipine Besylate) 10 Mg Tablet, 10 MG PO DAILY, (Reported) Last Taken: on 08/25/161999 Cabergoline (Cabergoline) 0.5 Mg Tablet, 0.5 MG PO DAILY, (Reported) Last Taken: on 08/22/16 Insulin Glargine,Hum.rec.anlog (Lantus) 100 Unit/ Ml Inj, 70 UNIT SQ DAILY, (Reported) Last Taken: on 08/25/16199 Irbesartan (Irbesartan) 300 Mg Tablet, 1 TAB PO DAILY, (Reported) Last Taken: on 08/25/161999 Levothyroxine Sodium (Levothyroxine Sodium) 100 Mcg Tablet, 1 TAB PO ACB, (Reported) Once daily before breakfast Last Taken: on 08/26/16199 Metoprolol Succinate (Metoprolol Succinate) 100 Mg Tab.er.24h, 100 MG PO DAILY, (Reported) Last Taken: on 08/25/161999 Oxycodone HCl (Oxycodone HCl) 5 Mg Capsule, 1 CAP PO QIDPRN, (Reported) Last Taken: on 08/26/16199 Pantoprazole Sodium (Pantoprazole Sodium) 40 Mg Tablet.dr, 40 MG PO DAILY, (Reported) Take 1 tablet, by mouth, daily before breakfast. Last Taken: on 08/26/16199 Tramadol HCl (Tramadol HCl) 50 Mg Tablet, 50 MG PO QID, (Reported) Take 1 tablet, by mouth, 4 times a day. Last Taken: on 08/26/16199 Currently on Beta Filiberto: Yes Beta Filiberto Last Taken: 1999 Medical/Surgical History Anesthesia PMH: Reports: *Diabetes (avg bs at home 180 ), *Hypertension, Anxiety, Arthritis (SPINE,LOWER BACK), Cancer (PITUITARY CANCER), Reflux, Thyroid Disease (PITUITARY CARCINOMA), Denies: Anesthesia Reactions (NO AIRWAY ISSUES), Clotting Problems, Glaucoma, Malignant Hyperthermia, Renal Disease, Sleep Apnea Smoking Status: Former smoker (quit 30 years ago) Use Chewing Tobacco?: No Second Hand Exposure: No Substance Use Type: does not use Alcohol Intake: none Past Surgical History Orthopedic Surgeries: Yes - LEFT HAND AFTER INJURY CHILD Abdominal Surgeries: Genitourinary Surgeries: Cardiac Surgeries: Endocrine Surgeries: Reproductive Surgeries: Neurological Surgeries: Yes - PITUITARY Ear Surgeries: Nose Surgeries: Throat Surgeries: Other Surgeries: Yes - CLEFT PALATE Anesthesia Adverse Reactions: FOUND none Family Hx of Anesthesia Advers: none Hx of Motion Sickness: No Pertinent Findings EKG Rhythm: Sinus Rhythm Physical Exam Respiratory: Bilat breath sounds equal, Lungs clear Cardiovascular: FOUND Regular rate, rhythm, FOUND No murmur Airway Assessment Mallampati Score: III Neck Extension: Fair Overall Assessment: May Be Diff Intubation ASA: 2 Plan Anesthesia Plan: TIVA Discussion Discussed risks/options/alternatives of anesthesia and questions answered. Patient consents. Nursing pain assessment noted. Attestation Statement Prior to the delivery of any anesthetic medication, I examined the patient, developed the plan, obtained the patient's consent and discussed the risk and benefits of the procedure with the patient/guardian. KANIKA CARRILLO CRNA Aug 26, 2016 07:20
[2016-08-26] MEDS ORDERED: PROPOFOL 500mg 50 ML IV ONE (07:24)
[2016-08-26] MEDS ORDERED: LIDOCAINE 2% (20mg/ml) 5ml PF SDV ONE (07:24)
[2016-08-26] MEDS ORDERED: LIDOCAINE VISCOUS 2% Oral Soln 15ml UD ONE (07:25)
[2016-08-26] MEDS ORDERED: KETAMINE 500mg/10ml INJECTION ONE (07:39)
--- NOTE | 2016-08-26 08:29 | GSPOSTPROC ---
Immediate Operative Note DATE: 08/26/16 TIME: 08:28 Postop Diagnosis: Distal esophageal stricture Mild distal esophagitis Mild antral gastritis Surgical Procedure: EGD w/Biopsies (and Dilatation of Esophagus) Surgeon: Shameka ASA: 2 MOLLY LOPEZ MD Aug 26, 2016 08:29
--- NOTE | 2016-08-26 08:49 | DI ---
Indication: ITS.REASON: POSS ASPIRATION DURING surgery PROCEDURE: CHEST 1 VIEW: Encounter: Initial Comparison: None FINDINGS: The lungs are clear. There is no abnormal airspace opacity, pleural effusion or pneumothorax identified. The heart size, pulmonary vasculature and mediastinum are within normal limits. No significant skeletal abnormality is seen. IMPRESSION: No acute cardiopulmonary abnormality. .
--- NOTE | 2016-08-26 09:56 | ANESPO ---
Post-Op Note Date 08/26/16 Time: 09:15 Status Pt Participated in Evaluation: Pt participated by phone Vital Signs Date Time Temp Pulse Resp B/P Pulse Ox O2 Delivery O2 Flow Rate FiO2 08/26/16 08:55 Room Air 08/26/16 08:20 61 17 138/79 100 2.50 08/26/16 08:06 98.2 Respiratory Function: Airway patent Cardiovascular Function: Regular pulse Mental Status: Alert/oriented Pain Level Intensity: 0 Hydration: Taking po fluids, IV infusing Complications during Recovery Pt had a period of desaturation during procedure which he recovered from. Requiring supplemental o2 in recovery. Spoke with surgeion and pts about possible aspiration. Chest xray ordered and it was negative. spo2 on room air was 96 which was above his baseline. Surgeon and I feel pt is safe to go home. Pt requesting to go home also. pt and educated to use cpap at home although pt has been reluctant in the past. Follow-Up Instructions Instructions Per Surgeon KANIKA CARRILLO CRNA Aug 26, 2016 09:56
--- NOTE | 2016-08-27 11:40 | OPNOTEF ---
DATE OF OPERATION 08/26/16 PREOPERATIVE DIAGNOSES 1. Esophageal dysphagia. 2. Gastroesophageal reflux disease. POSTOPERATIVE DIAGNOSES 1. Esophageal dysphagia. 2. Distal esophageal stricture. 3. Mild distal esophagitis. 4. Mild antral gastritis. PROCEDURE 1. Esophagogastroduodenoscopy with antral biopsy for AKUA testing and biopsies for histology of the antrum, gastroesophageal junction, and esophageal stricture. 2. Balloon dilatation of the esophagus to a 20 mm diameter. ANESTHESIA TIVA ASA class II. SURGEON Nando Lo M.D. INDICATIONS The patient is a 56-year-old male who has had trouble swallowing over the last two years. He had been taking Protonix for years and denies acid reflux symptoms. He had developed some epigastric abdominal pain that had been significant enough to take him to the emergency department twice. FINDINGS There was a slight stricturing just above the GE junction. There was also one area of possible distal esophagitis that was mild. There were no esophageal ulcerations. There was mild antral gastritis. The remainder of the stomach was normal and the duodenum was normal. DESCRIPTION OF PROCEDURE After informed stent was obtained the patient was taken to the endoscopy suite and placed in left lateral decubitus position. A bite block was inserted. An Olympus video gastroscope was inserted and advanced into the level of the esophagus. The patient then had desaturation so the scope was removed. Additional oxygen mask was placed to help maintain the patient's oxygen saturations along with an oral airway. Once the patient's saturations had improved the gastroscope was reinserted and advanced into the esophagus under direct vision. The scope was advanced down to the distal esophagus where the mild stricture was noted. The scope was passed down to the second portion of the duodenum. The scope was withdrawn into the stomach while examining the circumference of the small bowel. The stomach was inspected throughout its entirety including retroflexion to examine the cardiac and fundic portions of the stomach. Biopsy was taken of the antrum for AKUA testing and additional biopsies of the irritated areas in the antrum were taken and were sent to pathology. The scope was then withdrawn into the distal esophagus and a biopsy of the irritated area at the GE junction was taken. The balloon dilator was then passed through the scope and positioned across the area of stricture. The balloon was inflated to a 18 mm diameter which was slightly snug. It was increased to 19 mm diameter and finally a 20 mm diameter. Three sequential dilations to 20 mm were performed and the balloon was held inflated. There did appear to be slight fracture of the stricture. A biopsy of the strictured area was then taken and was sent to pathology. When the area was determined to be hemostatic and there was no evidence of perforation the scope was withdrawn examining the remainder of the esophagus circumferentially. The scope was then removed. RECOMMENDATIONS 1. Continue PPI. 2. Await pathology and AKUA testing. 3. Follow clinical progress following dilatation. [facility]
== END 2016-08-26 09:25 | disposition home or self-care (01) ==
LOC: NSC 05:51
PROVIDERS: ATTEND Surgery
DX: K22.2 Esophageal obstruction (principal); K22.70 Barrett's esophagus without dysplasia; K21.0 Gastro-esophageal reflux disease with esophagitis; K29.60 Other gastritis without bleeding; R13.10 Dysphagia, unspecified; I10 Essential (primary) hypertension; E10.9 Type 1 diabetes mellitus without complications; Z79.4 Long term (current) use of insulin; E03.9 Hypothyroidism, unspecified; M79.7 Fibromyalgia; I89.0 Lymphedema, not elsewhere classified; Z87.828 Personal history of other (healed) physical injury and trauma; Z79.899 Other long term (current) drug therapy
CPT/HCPCS: 43239; 43249; 71010; 82948; 87081; J7120